=== PATIENT | female | born 1980 | race Caucasian/White ===

== ENCOUNTER → 2024-11-07 | Outpatient (CLI) | payer OTHER, SELFPAY ==
--- OUTSIDE RECORDS SUMMARY | 2024-10-11 11:36 | XMS RPT_ITS ---
Author Name Auto Generated Organization OHIP Care Team Providers Care Fence Builder Name Role Phone Rolanda Ortiz Attending U ale ChaoRolanda bradford Admitting U mehranailable Case, Kilo Chanel Primary Care Unavailable Anisha Krishna Attending Unavailable Anisha Krishan Admitting Unavailable Case, Kilo Chanel Primary Care Unavailable Osorio Louis Primary Care Unavailable Case, Kilo Chanel Attending Unavailable Case, Kilo L Admitting Unavailable Carlita Motta Attending Unavailable Carlita Motta Admitting Unavailable Acosta Varela Primary Care Unavail able OSORIO LOUIS Primary Care Unavailable SUHAIL LEE Attending Unavailable OSORIO LOUIS Primary Care Unavailable NITA YANEZ Referring Unavailable OSORIO LOUIS Primary Care Unavailable NITA YANEZ Attending Unavailable OSORIO LOUIS Primary Care Unavailable HARMONY DUTTA Attending Unavailable OSORIO LOUIS Primary Care Unavailable HARMONY DUTTA Attending Unavailable ACOSTA VARELA Attending Unavailabl e ACOSTA VARELA Admitting Unavailabl e ACOSTA VARELA Attending Unavailabl e ACOSTA VARELA Admitting Unavailabl e ACOSTA VARELA Attending Unavailabl e ACOSTA VARELA Attending Unavailabl e ACOSTA VARELA Referring Unavailabl e KALEB BOOTH Attending Unavailab le ACOSTA VARELA Attending Unavailben e ACOSTA VARELA Admitting Unavailabl e ACOSTA VARELA Referring UnavailSAMANTHA Rey Attending Unavailable ROLANDA ORTIZ Attending Unavailable CASEKILO Attending Unavailable ROGE ZIEGLER Attending Unavailable SAMANTHA CARTY Referring Unavailable SAMANTHA CARTY Attending Unavailable ANISHA KRISHNA Attending Unavailable ANISHA KRISHNA Attending Unavailable CASEKILO Referring Unavailable PROBLEMS DATE TYPE CONDITION / CODE ATTENDING STATUS [facility] 09/22/2024 Active Alteration in me tabolic function / R63.8(ICD-10) NA Active [facility] 09/22/2024 Active Anxiety / F41.9(ICD-10) NA Activ e [facility] 09/22/2024 Active History of PCOS / Z87.42(ICD-10) NA Active [facility] 09/22/2024 Active Brain fog / R41.89(ICD-10) NA Active [facility] 09/22/2024 Active Stress / F43.9(ICD-10) NITA YANEZ ctive [facility] 09/22/2024 Active Nonintractable headache, unspecified chronicity pattern, unspecified headache type / R51.9(ICD-10) NITA YANEZ Active [facility] 08/26/2024 Unknown Headache, unspec ified / R51.9(ICD-10) Carlita Motta [facility] 08/04/2024 Unknown Other specified abnormal findings of blood chemistry / R79.89(ICD-10) Anisha Krishna [facility] 07/11/2024 Unknown Palpitations / R00.2(ICD-10) [facility] Unknown Chronic fatigue, unspecified / R53.82(ICD-10) [facility] Unknown Vitamin D defici ency, unspecified / E55.9(ICD-10) [facility] Unknown Deficiency of ot her specified B group vitamins / E53.8(ICD-10) [facility] Unknown Abnormal level o f blood mineral / R79.0(ICD-10) [facility] Unknown Cramp and spasm / R25.2(ICD-10) [facility] Unknown Nonscarring hair loss, unspecified / L65.9(ICD-10) [facility] Unknown Encounter for co reening for lipoid disorders / Z13.220(ICD-10) [facility] Unknown Pain in right le g / M79.604(ICD-10) [facility] 07/11/2024 Unknown Pain in left leg / M79.605(ICD-10) [facility] Unknown Asymptomatic ilya icose veins of bilateral lower extremities / I83.93(ICD-10) [facility] Unknown 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 / I83.893(ICD-10) Ortiz Rolanda Linnea Active [facility] 06/08/2024 Active 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) HARMONY DUTTA Active [facility] 02/01/2024 Unknown Hirsutism / L68.0(ICD-10) Case, Kilo Chanel [facility] 02/01/2024 Unknown Abnormal uterine and vaginal bleeding, unspecified / N93.9(ICD-10) Case, Kilo Chanel [facility] 2023 Active Vitamin B12 defi ciency / E53.8(ICD-10) SUHAIL LEE Active [facility] PROCEDURES No Procedure Records Found RESULTS AMBULATORY VISIT SUMMARY Observed: 09/27 11:36 AM Status: F Source: [facility] Ambulatory Visit Summary URMILA RODRIGUEZ Yanique :1980 Visit Date:09/27/2024 Ambulatory Visit Instructions Your Diagnosis Anxiety Migraine Muscle spasm Neck pain Rash Your Care Team Attending Physician - WHITNEY VENTURA Primary Care Physician - WHITNEY VENTURA This Is Your Medications List acetaminophen-oxycodone (Percocet 5 mg-325 mg oral tablet) alprazolam (Xanax 0.25 mg Tab) clonazepam (clonazepam 0.5 mg oral tablet, disintegrating) diazepam (Valium 10 mg Tab) multivitamin (Multi Vitamin+) predniSONE (predniSONE 10 mg Tab) tizanidine (tizanidine 4 mg oral capsule) triamcinolone topical (triamcinolone Top 0.5% Crm) Procedures Performed Breast implant (02/09/2019), Breast implant (02/09/2011), 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 Discharge Vitals Heart Rate (Peripheral) 88 Blood Pressure 110/72 Height 163 cm Height 64 in Weight 55.2 kg Weight 121.695 lb BMI 20.78 Medications What How Much When Why Instructions New acetaminophen-oxycodone (Percocet 5 mg-325 mg oral tablet) 1 Tablets By Mouth Every 6 hours Migraine Neck pain Pickup at [facility] New clonazepam (clonazepam 0.5 mg oral tablet, disintegrating) 1 Tablets By Mouth 2 times a day Anxiety Refills: 1 Pickup at [facility] New tizanidine (tizanidine 4 mg oral capsule) 1 Capsules By Mouth 3 times a day Muscle spasm Refills: 2 Pickup at [facility] New triamcinolone topical (triamcinolone Top 0.5% Crm) 1 Application Topical 2 times a day Rash Refills: 1 Pickup at [facility] Unchanged alprazolam (Xanax 0.25 mg Tab) 1 Tablets By Mouth Every 8 hours Anxiety Unchanged diazepam (Valium 10 mg Tab) 1 Tablets By Mouth Once as needed for for anxiety Claustrophobia Unchanged multivitamin (Multi Vitamin+) Unchanged predniSONE (predniSONE 10 mg Tab) 1 Dose Separtor By Mouth As Directed Migraine Take 3 tabs by mouth daily x3 days, then 2 tabs daily x3 days, then 1 tab daily x3 days. Pharmacy Information [facility]: [address], [place] [id number] [phone] Allergies No Known Medication Allergies Problems Ongoing - Any problem that you are currently receiving treatment for. Headache Patient Survey You may receive a survey via text or e-mail asking about your office visit. Please share your experience with us by completing your survey. We appreciate your feedback and thank you for choosing us for your care. Patient Portal You may access all of your results and other medical record information on our secure patient portal. If you are not signed up for this yet, please contact Health Information Management at [phone] to get signed up today. Language Information Language assistance services are available as needed. FAMILY MEDICINE OFFICE/CLINI C NOTE Observed: 09/27/2024 11:36 AM Status: F Source: [facility] Family Medicine Office/Clini c Note Chief Complaint Headaches HPI Staff Pt is here today to discuss migraines. -Pt states after her MRI w/ contrast she started to get a really bad headache and backache. Struggling with migraines recently. Feels like a burning sensation on the back of her head. Pt also has a rash on her chest that is now spreading up to her neck. It comes and goes. On neck or back. Hasn't changed laundry soap, or lotion. History of Present Illness Urmila is a 44 year old female who presents for a migraine headache. She had a brain MRI recently and after this test she has had a pretty consistent migraine. She has tried OTC,ice, heat, etc and nothing to helping with her migraine. She completed a steroid without resolve of migraine. 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 She is not sure if she will be able to go back to school. She has developed a rash on her chest. She does not believe she was exposed to anything recently. I believe the rash is from severe anxiety and anxiousness related to her health and going back to school. Neck spasm: she reports her neck is also hurting from the migraine. Review of Systems PHQ Score Initial Depression Screen Score: 6 SCORE Detailed Depression Screen Score: 18 Total Depression Screen Score: 24 Physical Exam Vitals & Measurements HR: 88(Peripheral) BP: 110/72 SpO2: 100% HT: 163 cm HT: 64 in WT: 55.2 kg WT: 121.695 lb BMI: 20.78 General: alert, no acute distress ENMT: TM's clear, oral mucosa moist, no pharyngeal erythema or exudate Cardiovascular: regular rate and rhythm, normal peripheral perfusion Respiratory: Lungs CTA, respirations non labored Extremities: no deformity, no trauma Neurological: oriented x 4, LOC appropriate for age, CN II-XII intact, motor strength equal & normal bilaterally, sensation equal & normal bilaterally, speech normal Assessment/Plan 1. Headache (R51.9: Headache, unspecified) percocet prn tizanidine 2. Anxiety, (F41.9: Anxiety disorder, unspecified)Anxiety start clonazepam as needed Ordered: clonazepam, 0.5 mg = 1 tab(s), Oral, BID, # 30 tab(s), Refills(s) 1, Pharmacy: [facility], 163, cm, 09/27/24 12:04:00 EDT, Height/Length Dosing, 55.2, kg, 09/27/24 12:04:00 EDT, Weight Dosing 3. Pain (R52: Pain, unspecified) percocet prn 4. Rash, (R21: Rash and other nonspecific skin eruption)Rash triamcinolone prn Ordered: triamcinolone topical, 1 ron, Topical, BID, 15 gram, Refill(s) 1, [facility], 163, cm, 09/27/24 12:04:00 EDT, Height/Length Dosing, 55.2, kg, 09/27/24 12:04:00 EDT, Weight Dosing Migraine (G43.909: Migraine, unspecified, not intractable, without status migrainosus) Ordered: acetaminophen-oxycodone, 1 tab(s), Oral, q6hr, 28 tab(s), Refill(s) 0, [facility], 163, cm, 09/27/24 12:04:00 EDT, Height/Length Dosing, 55.2, kg, 09/27/24 12:04:00 EDT, Weight Dosing Muscle spasm (M62.838: Other muscle spasm) Ordered: tizanidine, 4 mg = 1 cap(s), Oral, TID, # 90 cap(s), Refills(s) 2, Pharmacy: [facility], 163, cm, 09/27/24 12:04:00 EDT, Height/Length Dosing, 55.2, kg, 09/27/24 12:04:00 EDT, Weight Dosing Neck pain (M54.2: Cervicalgia) Ordered: acetaminophen-oxycodone, 1 tab(s), Oral, q6hr, 28 tab(s), Refill(s) 0, [facility], 163, cm, 09/27/24 12:04:00 EDT, Height/Length Dosing, 55.2, kg, 09/27/24 12:04:00 EDT, Weight Dosing Follow-up No qualifying data available Problem List/Past Medical History Ongoing Anxiety Headache Pain Rash Historical No qualifying data Procedure/Surgical History Breast implant (02/09/2019), Breast implant (02/09/2011), 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 Medications clonazepam 0.5 mg oral tablet, disintegrating, 0.5 mg= 1 tab(s), Oral, BID, 1 refills Multi Vitamin+ Percocet 5 mg-325 mg oral tablet, 1 tab(s), Oral, q6hr predniSONE 10 mg Tab, 1 -, Oral, As Directed tizanidine 4 mg oral capsule, 4 mg= 1 cap(s), Oral, TID, 2 refills triamcinolone Top 0.5% Crm, 1 ron, Topical, BID, 1 refills Valium 10 mg Tab, 10 mg= 1 tab(s), Oral, Once, PRN Xanax 0.25 mg Tab, 0.25 mg= 1 tab(s), Oral, q8hr, 1 refills Allergies No Known Medication Allergies Social History Alcohol Past. Beer, Wine, Liquor. 1-2 times per year., 08/28/2024 Substance Abuse Never., 08/05/2024 Tobacco Never (less than 100 in lifetime) Tobacco Use:. Never Smokeless Tobacco Use:. Household tobacco concerns: No., 09/27/2024 Family History Family history is negative Result Comment: Electronical ly Signed By: WHITNEY VENTURA\.br\Date and Time Signed: 09/27/24 13:14 EDT VITAMIN B3/NIACIN Collected: 09/22/2024 11:41 AM Sta tus: F Source: [facility] Order Comment: Specimen Type : BLOOD SPECIMEN Ordering Facility: [facility] Address: [address] [place] [address] TYPE CODE TESTS RESULT OUT OF RANGE REFERENCE UNITS LAB NICOTACID NICOTINIC ACID None Det ng/mL Result Comment: Serum or Raf sma Reporting Limit: 10 ng/mL Synonym(s): Niacor(R); Niaspan(R); Slo-Niacin(R); Vitamin B3 Nicotinic acid occurs naturally in plants and animals and is also added to many foods as a vitamin supplement. Due to the large variability in the metabolism of nicotinic acid, the dosing preparation used (immediate-release vs. extended-release), and the mg doses used, the serum concentrations may range from less than 10 ng/mL to about 86291 ng/mL. After oral administration of an immediate-release tablet, peak plasma concentrations are achieved in 30 to 60 min; after oral administration of an extended-release capsule, peak plasma concentrations occur in 4 to 5 hours. The plasma half-life of nicotinic acid is about 1 hour. In one study, fasting plasma concentrations were reported to be approximately 10 ng/mL. In another study it was reported that the administration of a single 1000 mg extended-release tablet resulted in mean nicotinic acid concentrations of less than 50 ng/mL. The administration of multiple oral doses of nicotinic acid (for a total of 2000 mg) resulted in the following mean peak nicotinic acid plasma concentrations: 25 mg every 10 min. for 80 doses (over 13 hours): 1100 ng/mL 50 mg every 10 min. for 40 doses (over 6.5 hours): 5400 ng/mL 100 mg every 10 min. for 20 doses (over 3 hours): 26376 ng/mL This test should be considered as a therapeutic drug monitoring/toxicological test associated with niacin (Vitamin B3) supplementation. Care should be taken in the use of this test for basal Vitamin B3 determination. The supplied reference comment does not reflect normal, endogenous Vitamin B3 concentrations. Analysis by [facility] Liquid Chromatography/ Tandem Mass Spectrometry (LC-MS/MS) LAB NICOT NICOTINAMIDE 24 ng/mL Result Comment: Serum or Raf sma Reporting Limit: 10 ng/mL Synonym(s): Niacinamide; Vitamin B3; Niacin(R) Nicotinamide is a metabolite of nicotinic acid, is the common form of niacin included in vitamin preparations and is also added to many foods as a vitamin supplement. Due to the large variability in the metabolism of nicotinic acid, plasma concentrations of this metabolite also are variable. In one study, fasting plasma concentrations were reported to be approximately 40 ng/mL. In another study it was reported that the administration of a single 1000 mg extended-release tablet of nicotinic acid resulted in a mean peak Nicotinamide concentration of 400 ng/mL between 5 and 10 hours post dose, decreasing to about 100 ng/mL by 16 hours post dose. The administration of multiple oral doses of nicotinic acid (for a total of 2000 mg) resulted in the following mean peak Nicotinamide plasma concentrations: 25 mg every 10 min. for 80 doses (over 13 hours): 1300 ng/mL 50 mg every 10 min. for 40 doses (over 6.5 hours): 2300 ng/mL 100 mg every 10 min. for 20 doses (over 3 hours): 2000 ng/mL This test should be considered as a therapeutic drug monitoring/toxicological test associated with niacin (Vitamin B3) supplementation. Care should be taken in the use of this test for basal Vitamin B3 determination. The supplied reference comment does not reflect normal, endogenous Vitamin B3 concentrations. Analysis by [facility] Performance Liquid Chromatography/ Tandem Mass Spectrometry (LC-MS/MS) LAB NICOTINURIC NICOTINURIC ACID None Det ng /mL Result Comment: Serum or Raf sma Reporting Limit: 10 ng/mL Synonym(s): Niacin Metabolite Nicotinuric acid is a metabolite of nicotinic acid and nicotinamide. Due to the large variability in the metabolism of nicotinic acid and nicotinamide, plasma concentrations of this metabolite also are variable. In one study it was reported that the administration of a single 1000 mg extended-release tablet of nicotinic acid resulted in a mean peak nicotinuric acid concentration of over 1000 ng/mL within 2 hours post dose, decreasing to less than 200 ng/mL by 6 hours and less than 50 ng/mL by 12 hours post dose. The administration of multiple oral doses of nicotinic acid (for a total of 2000 mg) resulted in the following mean peak nicotinuric acid plasma concentrations: 25 mg every 10 min. for 80 doses (over 13 hours): 950 ng/mL 50 mg every 10 min. for 40 doses (over 6.5 hours): 2300 ng/mL 100 mg every 10 min. for 20 doses (over 3 hours): 5100 ng/mL This test should be considered as a therapeutic drug monitoring/toxicological test associated with niacin (Vitamin B3) supplementation. Care should be taken in the use of this test for basal Vitamin B3 determination. The supplied reference comment does not reflect normal, endogenous Vitamin B3 concentrations. Analysis by High Performance Liquid Chromatography/ Tandem Mass Spectrometry (LC-MS/MS) This test was developed and its performance characteristics determined by [facility]. It has not been cleared or approved by the US Food and Drug Administration. Digital data review may have taken place remotely by qualified [facility] staff utilizing a secure VPN connection for some or all of the reported results. This is in accordance with and follows CLIA regulations. Testing performed at [facility] [employer] [address] [place] [id number] Garo Landaverde, PhD, F-FREYA, [facility]-, [employer] [facility] [id number] Performed By: #### [id number] ### # [facility] CLIA [id number] [address] [place] [address] [facility] [facility] Collected: 5 11:41 AM Status: F Source: [facility] Order Comment: Specimen Type : VENOUS BLOOD SPECIMEN Ordering Facility: [facility] Address: [address], [place] [address] TYPE CODE TESTS RESULT OUT OF RANGE REFERENCE UNITS LAB 05848-6(LOINC) Lead BldV-mCnc <1.0 <3.5 ug/dL Result Comment: The Centers for Disease Control and Prevention (CDC) recommends a blood lead reference value of less than 3.5 ???g/dL (Update of the Blood Lead Reference Value - [place], 2020). The CDC's updated Recommended Actions Based on Blood Lead Level can be accessed at www.cdc.gov. Consult your State Department of Health and/or applicable regulatory agencies for specific guidance on testing follow up and patient management. This test was developed, and its performance characteristics determined by the [facility] Department of Pathology and Laboratory Medicine. It has not been cleared or approved by the FDA. The [facility] Department of Pathology and Laboratory Medicine is regulated under CLIA as qualified to perform high- complexity testing. This test is used for clinical purposes. It should not be regarded as investigational or for research. Performed By: #### [id number] ## ## [facility] CLIA [id number] [address] [place] [address] OF [facility] ARSENIC BLD Collected: 11:41 AM Status: F Source: [facility] Order Comment: Specimen Type : BLOOD SPECIMEN Ordering Facility: [facility] Address: [address] [place] [address] TYPE CODE TESTS RESULT OUT OF RANGE REFERENCE UNITS LAB ASB ARSENIC, BLOOD <10.0 <=12.0 ug/L Result Comment: INTERPRETIVE INFORMATION: Arsenic, Whole Blood Potentially toxic ranges for blood arsenic: Greater than or equal to 600 ug/L. Blood arsenic is for the detection of recent exposure poisoning only. Blood arsenic levels in healthy subjects vary considerably with exposure to arsenic in the diet and the environment. A 24-hour urine arsenic is useful for the detection of chronic exposure. Elevated results may be due to skin- or collection-related contamination, including the use of tubes that are not certified to be trace element-free. If an elevated result is suspected to be due to contamination, confirmation with a second specimen collected in a certified trace element-free tube is recommended. Methodology: Inductively Coupled Plasma-Mass Spectrometry (ICP-MS). This test was developed and its performance characteristics determined by [facility]. It has not been cleared or approved by the U.S. Food and Drug Administration. This test was performed in a CLIA-certified laboratory and is intended for clinical purposes. Performed By: [facility] [address] [place] [id number] Gamemaster: Reyes Velez MD, PhD CLIA Number: [id number] Performed By: #### ASB #### [facility] CLIA [id number] [address] [place] [address] CADMIUM BLOOD Collected: 11:41 AM Status: F Source: [facility] Order Comment: Specimen Type : BLOOD SPECIMEN Ordering Facility: [facility] Address: [address] [place] [address] TYPE CODE TESTS RESULT OUT OF RANGE REFERENCE UNITS LAB CADMB CADMIUM BLOOD <1.0 <=5.0 ug/L Result Comment: INTERPRETATI ON INFORMATION: Cadmium, Whole Blood Blood cadmium levels can be used to monitor acute toxicity and, in combination with cadmium urine and B-2 microglobulin, is the preferred method for monitoring occupational exposure. Symptoms associated with cadmium toxicity vary based upon route of exposure and may include tubular proteinuria, fever, headache, dyspnea, chest pain, conjunctivitis, rhinitis, sore throat, and cough. Ingestion of cadmium in high concentration may cause vomiting, diarrhea, salivation, cramps, and abdominal pain. Elevated results may be due to skin- or collection-related contamination, including the use of tubes that are not certified to be trace element-free. If an elevated result is suspected to be due to contamination, confirmation with a second specimen collected in a certified trace element-free tube is recommended. Methodology: Inductively Coupled Plasma-Mass Spectrometry (ICP-MS). This test was developed and its performance characteristics determined by [facility]. It has not been cleared or approved by the US Food and Drug Administration. This test was performed in a CLIA certified laboratory and is intended for clinical purposes. Performed By: [facility] [address] [place] [address] Gamemaster: Reyes Velez MD, PhD CLIA Number: [id number] Performed By: #### CADM #### [facility] CLIA [id number] [address] [place] [address] COPPER BLOOD Collected: 11:41 AM Status: F Source: [facility] Comment: Specimen Type : BLOOD SPECIMEN Ordering Facility: [facility] Address: [address] [place] [address] TYPE CODE TESTS RESULT OUT OF RANGE REFERENCE UNITS LAB 5631-7(LOINC) Copper SerPl-mCnc 141 80-155 ug/dL Result Comment: This test wa s developed, and its performance characteristics determined by the [facility] Department of Pathology and Laboratory Medicine. It has not been cleared or approved by the FDA. The [facility] Department of Pathology and Laboratory Medicine is regulated under CLIA as qualified to perform high-complexity testing. This test is used for clinical purposes. It should not be regarded as investigational or for research. Performed By: #### COPPER ## ## [facility] CLIA [id number] [address] [place] [address] [place] VITAMIN B5(PANTOTHENIC AID) BIOASSAY Collected: 09/22/2024 11:41 AM Status: F Source: [facility] Order Comment: Specimen Type : BLOOD SPECIMEN Ordering Facility: [facility] Address: [address] [place] [address] TYPE CODE TESTS RESULT OUT OF RANGE REFERENCE UNITS LAB VITB5R VITAMIN B5 103.42 37.00-147.00 ug/L Result Comment: Adult Reference Range >10 Years 37 - 147 ug/L Pediatric Reference Range < or = 1 Year : 3.45 to 825 ug/L >1 Year to 10 Years: 3.45 to 229.2 ug/L The performance characteristics of the listed assay was validated by [facility] The FDA has not approved or cleared this test. The results of this assay can be used for clinical diagnosis without FDA approval. [facility] is a CLIA certified, CAP accredited laboratory for performing high complexity assays such as this one. Testing Performed at: [facility] [address] [place] [address], [place] [address] Performed By: #### VITB5 ### # [facility] CLIA [id number] [address] [place] [address] VITAMIN B1 (THIAMINE), WHOLE BLOOD Nicholas ected: 09/22/2024 11:41 AM Status: F Source: [facility] Order Comment: Specimen Type : BLOOD SPECIMEN Ordering Facility: [facility] Address: [address] [place] [address] TYPE CODE TESTS RESULT OUT OF RANGE REFERENCE UNITS LAB 98308-1(LOINC) Vit B1 Bld-sCnc 156.1 84.3-213.3 nmol/L Result Comment: This assay m easures the concentration of thiamine diphosphate (TDP), the primary active form of vitamin B1. Approximately 90 percent of vitamin B1 present in whole blood is TDP. Thiamine and thiamine monophosphate, which comprise the remaining 10 percent, are not measured. This test was developed, and its performance characteristics determined by the [facility] Department of Pathology and Laboratory Medicine. It has not been cleared or approved by the FDA. The [facility] Department of Pathology and Laboratory Medicine is regulated under CLIA as qualified to perform high- complexity testing. This test is used for clinical purposes. It should not be regarded as investigational or for research. Performed By: #### B1WB #### [facility] CLIA [id number] [address] [place] [address] [place] MERCURY BLOOD Collected: 5 11:41 AM Status: F Source: [facility] Order Comment: Specimen Type : BLOOD SPECIMEN Ordering Facility: [facility] Address: [address] [place] [address] TYPE CODE TESTS RESULT OUT OF RANGE REFERENCE UNITS LAB MERC2 MERCURY <2.5 <=10.0 ug/L Result Comment: INTERPRETIVE INFORMATION: Mercury, Whole Blood Blood mercury levels predominantly reflect recent exposure and are most useful in the diagnosis of acute poisoning as blood mercury concentrations rise sharply and fall quickly over several days after ingestion. Blood concentrations in unexposed individuals rarely exceed 20 ug/L. The provided reference interval relates to inorganic mercury concentrations. Dietary and nonoccupational exposure to organic mercury forms may contribute to an elevated total mercury result. Clinical presentation after toxic exposure to organic mercury may include dysarthria, ataxia, and constricted vision proctor with mercury blood concentrations from 20 to 50 ug/L. Elevated results may be due to skin- or collection-related contamination, including the use of tubes that are not certified to be trace element-free. If an elevated result is suspected to be due to contamination, confirmation with a second specimen collected in a certified trace element-free tube is recommended. Methodology: Inductively Coupled Plasma-Mass Spectrometry (ICP-MS). This test was developed and its performance characteristics determined by [facility]. It has not been cleared or approved by the US Food and Drug Administration. This test was performed in a CLIA certified laboratory and is intended for clinical purposes. Performed By: [facility] [address] [place], [place] [id number] Gamemaster: Reyes Velez MD, PhD CLIA Number: [id number] Performed By: #### MERC2 ### # [facility] CLIA [id number] [address] [place], [place] [id number] VITAMIN B6/PYRIDOXIN Collected: 025 11:41 AM Status: F Source: [facility] Order Comment: Specimen Type : BLOOD SPECIMEN Ordering Facility: [facility] Address: [address] [place] [address] TYPE CODE TESTS RESULT OUT OF RANGE REFERENCE UNITS LAB VITB6 VITAMIN B6 69.3 20.0-125.0 nmol/L Result Comment: INTERPRETIVE INFORMATION: Vitamin B6 (Pyridoxal 5-Phosphate) Pyridoxal 5'-phosphate measured in a specimen collected following an 8-hour or overnight fast accurately indicates vitamin B6 nutritional status. Non-fasting specimen concentration reflects recent vitamin intake. This test was developed and its performance characteristics determined by [facility]. It has not been cleared or approved by the US Food and Drug Administration. This test was performed in a CLIA certified laboratory and is intended for clinical purposes. Performed By: [facility] [address] [place] [address] Gamemaster: Reyes Velez MD, PhD CLIA Number: [id number] Performed By: #### VITB6 ### # [id number] [address] [place] [id number] OMEGACHECK Collected: 5 11:41 AM Status: F Source: [facility] Order Comment: Specimen Type : BLOOD SPECIMEN Ordering Facility: [facility] Address: [address] [place] [address] TYPE CODE TESTS RESULT OUT OF RANGE REFERENCE UNITS LAB OMEGAL OMEGACHECK 2.7 Low >5.4 % by wt Result Comment: Increasing b lood levels of long-chain n-3 fatty acids are associated with a lower risk of sudden cardiac (1). Based on the top (75th percentile) and bottom (25th percentile) quartiles of the CHL reference population, the following relative risk categories were established for OmegaCheck: A cut-off of >=5.5% by wt defines a population at optimal relative risk, 3.8-5.4% by wt defines a population at moderate relative risk, and <=3.7% by wt defines a population at high relative risk of sudden cardiac . The totality of the scientific evidence demonstrates that when consumption of fish oils is limited to 3 g/day or less of EPA and DHA, there is no significant risk for increased bleeding time beyond the normal range. A daily dosage of 1 gram of EPA and DHA lowers the circulating triglycerides by about 7-10% within 2 to 3 weeks. (Reference: 1-Uday brenner al. [facility]. 2002; 346: 8774-2611).This test was developed and its analytical performance characteristics have been determined by [facility]. It has not been cleared or approved by the U.S. Food and Drug Administration. This assay has been validated pursuant to the CLIA regulations and is used for clinical purposes. LAB ARACHE ARACHIDONIC ACID/EPA RATIO 49.5 High 3.7-40.7 Result Comment: Received Tao e: [id number] LAB OMEG63 OMEGA-6/OMEGA-3 RATIO 14.9 High 3.7-14.4 LAB OMEGA3 OMEGA-3 TOTAL 2.7 % by wt LAB OMEEPA EPA 0.2 0.2-2.3 % by wt LAB OMEDPA DPA 0.6 Low 0.8-1.8 % by wt LAB OMEDHA DHA 1.8 1.4-5.1 % by wt LAB OMEGA6 OMEGA-6 TOTAL 39.7 % by wt Result Comment: [facility] measures a number of omega-6 fatty acids with AA and LA being the two most abundant forms reported. LAB ARACHA ARACHIDONIC ACID 11.7 8.6-15.6 % by wt LAB ARACHL LINOLEIC ACID 24.9 18.6-29.5 % by wt Performed By: #### OMEGAC ## ## [facility] CLIA [id number] [address] [place] [address] VITAMIN B2/RIBOFLAV Collected: 09/23/19 25 11:41 AM Status: F Source: [facility] Order Comment: Specimen Type : BLOOD SPECIMEN Ordering Facility: [facility] Address: [address] [place] [address] TYPE CODE TESTS RESULT OUT OF RANGE REFERENCE UNITS LAB VITB2 VITAMIN B2 12 5-50 nmol/L Result Comment: INTERPRETIVE INFORMATION: Vitamin B2, Plasma This test was developed and its performance characteristics determined by [facility]. It has not been cleared or approved by the US Food and Drug Administration. This test was performed in a CLIA certified laboratory and is intended for clinical purposes. Performed By: [facility] [address] [place] [address] Gamemaster: Reyes Velez MD, PhD CLIA Number: [id number] Performed By: #### VITB2 ### # [facility] CLIA [id number] [address] [place] [address] VIT A SERPL-MCNC Collected: 11:41 AM Status: F Source: [facility] Order Comment: Specimen Type : BLOOD SPECIMEN Ordering Facility: [facility] Address: [address] [place] [address] TYPE CODE TESTS RESULT OUT OF RANGE REFERENCE UNITS LAB 2923-1(LOINC) Vit A SerPl-mCnc 0.55 0.30-1.20 mg/L Result Comment: This test wa s developed, and its performance characteristics determined by the [facility] Department of Pathology and Laboratory Medicine. It has not been cleared or approved by the FDA. The [facility] Department of Pathology and Laboratory Medicine is regulated under CLIA as qualified to perform high-complexity testing. This test is used for clinical purposes. It should not be regarded as investigational or for research. Performed By: #### 2923-1 ## ## [facility] CLIA [id number] [address] [place] [address] [place] PROGRESS Observed: 09/22/2024 10:21 AM Status: COMPLETED Source: [facility] HNO ID: [id number] Author: NITA YANEZ APRN.PANTS PRESSER AUTOMATIC Service: ? Author Type: Nurse Practitioner Type: Progress Notes Filed: 09/22/2024 11:32 Note Text: FUNCTIONAL MEDICINE INITIAL ASSESSMENT Patient: Urmila Rodriguez Recording using [employer] software for draft documentation of the visit was discussed with the patient/authorized client relations representative; all questions welcomed and answered. Patient/authorized client relations representative agreed to proceed ALLERGIES No Known Allergies Current Outpatient Medications Medication Sig Dispense Refill Drospirenone-Ethinyl Estradiol (KAMAR 28) 3-0.02 mg per tablet Take 1 tablet by mouth once daily. minoxidil (LONITEN) 2.5 mg tablet Take 1/2 a pill once daily for hair loss 45 tablet 1 cholecalciferol, vitamin D3, (VITAMIN D3 ORAL) Take by mouth once daily. spironolactone (ALDACTONE) 50 mg tablet Start once daily and increase to twice daily after 2 weeks if tolerating well. 180 tablet 1 acetaminophen (TYLENOL 8 HOUR ORAL) Take by mouth. No current facility-administered medications for this visit. 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 No past surgical history on file. No family history on file. SOCIAL HISTORY[1] Patient Goals: New to provider visit today. Lives in [place], [place], accompanied by SO HPI: This is a 44yo female presenting for a functional medicine consult with complaints of: Headaches: - Severe headaches began 4 days post-MRI with contrast, 5 weeks ago. - Describes headaches as different from previous ones, with severe pressure and a burning sensation under the scalp. - Headaches are constant, with only 4 days without pain since onset. - Pain radiates down the neck and behind the ears. - Associated symptoms: photophobia, dizziness, and nausea - Tylenol and Advil provide minimal relief. - Headaches are severe enough to disrupt sleep. - Followed by PCP; self reports brain MRI unremarkable - No neurologist Rashes: - Onset of rashes and hives approximately 3.5 weeks post-MRI. - Rashes appear on different parts of the body, including arms and chest. - Associated with constant itching on the back. - Prednisone prescribed by PCP provided no relief. Previously seen by Dr. 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 - Symptoms include severe fatigue, brain fog, and inability to function normally. - Symptoms have worsened since the MRI with contrast. PCOS: - Self reports diagnosed by technical staff assistant due to high testosterone levels and irregular periods every 2-3 weeks. - History of ovarian cysts, including emergency surgery for a cyst pressing against an artery. - Currently on control since March to manage symptoms. - Mentions hx of severe hair loss, losing 3/4 of hair. MTHFR Gene Mutation: - Mentions diagnosed with MTHFR gene mutation, leading to difficulty detoxifying. - Taking a multivitamin for MTHFR for almost a year. - Self reports low B12 and vitamin D levels prior to starting the multivitamin. 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 - Does not take medication due to sensitivity to medications. - Reports interrupted sleep and poor sleep quality, getting 7-8 hours of sleep per night. Diet and Lifestyle: - Skips lunch and sometimes breakfast - Dinner protein and vegetables - Drinks 2-3 water bottles (32 oz each) per day. - Consumes 1 cup of coffee with creamer daily. - Bowel movements once a day, but reports feeling incomplete evacuation for about a year; no hx of colonoscopy - Drinks alcohol occasionally, does not smoke or use substances. - Has good support from family and friends. - Stress level reported as 9/10 due to health concerns and caring for two young children. - Has seen a therapist in the past;not actively - No regular exercise in the past two weeks. Last PCP visit: within the past year Supplements: reviewed MV with swetha Bs Meds/Labs: in EMR Review of Systems: See HPI Objective: BP 119/78 (BP Site: Right Arm, BP Position: Sitting, BP Cuff Size: Regular Adult) Pulse 80 Ht 160 cm (5' 3) Wt 55.4 kg (122 lb 2.2 oz) BMI 21.64 kg/m? Physical Exam: General appearance: Well-appearing, NAD. Pleasant and conversational HEENT: NC/AT, PERRL, sclera white, nose patent bilaterally, no oral swelling/mucus membranes pink AND moist, tongue without fissures or white coating Neck: Non-tender. No obvious swelling or adenopathy Lungs: CTAB, no use of accessory muscles Heart: RRR, no obvious murmur Abdomen: Soft, non-tender. +BS Extremities: Non-tender and warm. No obvious joint swelling, redness, or pitting edema Neuro: No obvious motor, sensory, or focal deficits. Pt is ambulatory. Finger to nose WNL Psych: Affect normal. Behavior and judgement normal. Skin: Warm. No acute rash Initial Functional Medicine Assessment Nutritional Assessment Nutritional evaluation was performed. See above. Underlying Causes: Unmet nutritional needs from diet, concern for impaired gut barrier/dysbiosis, inadequate sleep, life stressors Today's Focus: Gut health Stress regulation Improve sleep quality Detox Mitochondrial support Hormone balance Digestive Function Daily formed Bms - doesn't feel like fully emptying DIAGNOSIS/ASSESSMENT: R63.8 Alteration in metabolic function (primary encounter diagnosis) F41.9 Anxiety Z87.42 History of PCOS R41.89 Brain fog F43.9 Stress R51.9 Nonintractable headache, unspecified chronicity pattern, unspecified headache type Plan and Lifestyle Prescription PLAN with Patient Instructions: Based on your evaluation today, these are my recommendations: Follow up with F neurology for persistent, daily headaches - referral provided. Of course for any new concerns or if worse in any way, the ER is a 24/7 option Modified Core Diet: consider GF. Discuss well-sourced protein options and balanced meals/snack ideas. Expand vegetable diversity for microbiome support slowly and gently. Follow up with the registered nurse fetal (RD) for a customized food plan. Consider a 3-day food log/dietary recall assessment with your RD. Goals: Eliminate highly processed foods. Low ram on alcohol, sugar, and starches. Increase plant fiber intake with color variety (eat the rainbow) for gut health as tolerated. [facility] labs ordered Stress regulation: Try the 4-7-8 breath twice a day or at bedtime (Youtkatie De La Fuente 4-7-8). Take 1-2 deep breaths before eating meals Optionally, follow up with the CFM therapist to help process the stress you are experiencing Weekly movement routine: consider light walking 3x a week for 10 min (as tolerated) Restorative sleep: Pre-bedtime routine. No blue screens 1-2 hours before bed. Do something relaxing every night: read a book, meditate, try a deep breathing exercise, etc. Sleep goal 7-9 hours nightly Consistency: We have to build new neuro pathways for a sustainable health routine, including diet. Follow up with the health trolley coach driver every 2 weeks to keep things in check Minimize supplements: recommend a well-sourced Vitamin D. I like these brands: Plant-based organic vitamin D: Truvani brand 2000 IUs daily with food Notes: Natural ways to detox for gut-immune health: 1. Drink filtered water daily: 8 glasses (64 ounces). Urine should be pale, straw yellow in appearance. Never clear without color. 2. Eat organic as much as possible when available and within budget. Please visit the environmental working group to learn about fruits and veggies with the highest amount of toxins on them called the dirty dozen: EWG.org. Try to eat clean sources of meat as well. If you can not afford this, more vegetables than fruits are important to consume since they help up regulate your detoxification ability. 3. Eat the rainbow and use fresh and dried organic (preferred) spices such as: sara, parsley, oregano, cilantro. Increase plant fiber from dark leafy green and cruciferous vegetables: goal 1-2 cups per day. 4. Dry brushing: use loofah brush over body, always moving towards the heart daily before showering. If you feel worse with the above two, this is a sign of a lot of toxin build up, decrease what you are doing to the level you can tolerate. 5. Sauna 3x a week (as tolerated). Sweat for 8-10 min, shower directly after 6. Air quality in your house and at work are important. Consider investing in a good quality air purifier to clean the air. You can visit www.Beyond Lucid Technologies.BigRoad to learn more. Other ways to improve air quality are to keep shades/blinds open throughout the day, changing your HVAC filter more often and using a higher grade (10 is preferred). 7. Reduce environmental exposures: Check EWG.org scores on the Skin Deep database [2 or less is best] for low tox skincare, cosmetics, and personal care products - Gluten is commonly found in processed foods like pizza, pasta, pastries, pretzels, bread, beer, crackers, cookies, cereal, and soy sauce. Also grains that contain gluten include: wheat, barley, and rye. Naturally gluten-free (GF) whole foods/grains: quinoa, wild rice, GF oats, millet, buckwheat, amaranth, sorghum, teff Organic tamari sauce is a GF soy sauce alternative. Whole Food Recipe Blogs Tiki Benedict: https://SAFCell.BigRoad/ Plant Based RD (Vegan and plant diverse): https://plantbasedrTeamBuylog.com/recipes/ Rachaels Good Eats: https://Aliva Biopharmaceuticals.BigRoad/ Cookie and Macie: https://Fetch Technologies.BigRoad/ Love and Beto: https://www.ZUCHEM.BigRoad/recipes/ 101 Cookbooks: https://www.Signal Innovations GroupcoSureGenebookPresence Learning.BigRoad/ Naturally Lori:https://naturallyella.com/ The YouGift Food Dietitians: https://Breakout Commerce.BigRoad/ Follow up: Please schedule a follow up visit with the following Caregivers: Provider: 12weeks, Liquor Grinder Mill Operator: 4 weeks, and Health Front End Developer: 2 weeks Bundle Tier (RD): During the next 4-8 weeks you'll be working on your diet plan with our RD, allowing for gentle detoxification and decreasing inflammation - while we are gathering your lab results and combining those with your complete history to formulate a very personalized treatment plan. [phone]. Health Coaching: Recommend follow up every 2 weeks to develop a consistent routine. Please consider scheduling with our [place] health coaches for a phone or virtual visit for accountability, goal setting and help with behavior change director the next 6-8 weeks to be successful with your goals. [phone]. CFM Therapist: This is optional. Weekly or bi-monthly appointments can be helpful. [phone]. Due to the complexity of the testing performed, we are not able to review labs via Datahughart or over the phone, but please know, if any of your labs are critical we will contact you. Otherwise, we will review all your labs at your next visit. Time spent with patient: I spent a total of 60 minutes on the date of the service which included preparing to see the patient, [id number] patient care, completing clinical documentation, obtaining and/or reviewing separately obtained history, performing a medically appropriate examination, counseling and educating the patient/family/caregiver, and ordering medications, tests, or procedures. Nita Yanez APRN.KALEB 09/22/2024 11:31 AM [1] CNOV Observed: 09/22/2024 10:15 AM Status: COMPLETED Source: [facility] Office Visit ([facility]) NOAHURMILA Palacios ([id number]) 1980 F Date Time Provider Department 09/22/24 10:15 AM NITA YANEZ [facility] During your visit today, we recorded the following information about you: Pulse Blood pressure Weight Height 80/minute 119/78 55.4 kg 1.6 m Nita Yanez APRN.PANTS PRESSER AUTOMATIC 09/22/2024 11:32 AM Signed FUNCTIONAL MEDICINE INITIAL ASSESSMENT Patient: Urmila Rodriguez Recording using [employer] software for draft documentation of the visit was discussed with the patient/authorized client relations representative; all questions welcomed and answered. Patient/authorized client relations representative agreed to proceed ALLERGIES No Known Allergies Current Outpatient Medications Medication Sig Dispense Refill Drospirenone-Ethinyl Estradiol (KAMAR 28) 3-0.02 mg per tablet Take 1 tablet by mouth once daily. minoxidil (LONITEN) 2.5 mg tablet Take 1/2 a pill once daily for hair loss 45 tablet 1 cholecalciferol, vitamin D3, (VITAMIN D3 ORAL) Take by mouth once daily. spironolactone (ALDACTONE) 50 mg tablet Start once daily and increase to twice daily after 2 weeks if tolerating well. 180 tablet 1 acetaminophen (TYLENOL 8 HOUR ORAL) Take by mouth. No current facility-administered medications for this visit. 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 No past surgical history on file. No family history on file. SOCIAL HISTORY[1] Patient Goals: New to provider visit today. Lives in [place], [place], accompanied by SO HPI: This is a 44yo female presenting for a functional medicine consult with complaints of: Headaches: - Severe headaches began 4 days post-MRI with contrast, 5 weeks ago. - Describes headaches as different from previous ones, with severe pressure and a burning sensation under the scalp. - Headaches are constant, with only 4 days without pain since onset. - Pain radiates down the neck and behind the ears. - Associated symptoms: photophobia, dizziness, and nausea - Tylenol and Advil provide minimal relief. - Headaches are severe enough to disrupt sleep. - Followed by PCP; self reports brain MRI unremarkable - No neurologist Rashes: - Onset of rashes and hives approximately 3.5 weeks post-MRI. - Rashes appear on different parts of the body, including arms and chest. - Associated with constant itching on the back. - Prednisone prescribed by PCP provided no relief. Previously seen by Dr. 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 - Symptoms include severe fatigue, brain fog, and inability to function normally. - Symptoms have worsened since the MRI with contrast. PCOS: - Self reports diagnosed by technical staff assistant due to high testosterone levels and irregular periods every 2-3 weeks. - History of ovarian cysts, including emergency surgery for a cyst pressing against an artery. - Currently on control since March to manage symptoms. - Mentions hx of severe hair loss, losing 3/4 of hair. MTHFR Gene Mutation: - Mentions diagnosed with MTHFR gene mutation, leading to difficulty detoxifying. - Taking a multivitamin for MTHFR for almost a year. - Self reports low B12 and vitamin D levels prior to starting the multivitamin. 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 - Does not take medication due to sensitivity to medications. - Reports interrupted sleep and poor sleep quality, getting 7-8 hours of sleep per night. Diet and Lifestyle: - Skips lunch and sometimes breakfast - Dinner protein and vegetables - Drinks 2-3 water bottles (32 oz each) per day. - Consumes 1 cup of coffee with creamer daily. - Bowel movements once a day, but reports feeling incomplete evacuation for about a year; no hx of colonoscopy - Drinks alcohol occasionally, does not smoke or use substances. - Has good support from family and friends. - Stress level reported as 9/10 due to health concerns and caring for two young children. - Has seen a therapist in the past;not actively - No regular exercise in the past two weeks. Last PCP visit: within the past year Supplements: reviewed MV with methylated Bs Meds/Labs: in EMR Review of Systems: See HPI Objective: BP 119/78 (BP Site: Right Arm, BP Position: Sitting, BP Cuff Size: Regular Adult) Pulse 80 Ht 160 cm (5' 3) Wt 55.4 kg (122 lb 2.2 oz) BMI 21.64 kg/m? Physical Exam: General appearance: Well-appearing, NAD. Pleasant and conversational HEENT: NC/AT, PERRL, sclera white, nose patent bilaterally, no oral swelling/mucus membranes pink AND moist, tongue without fissures or white coating Neck: Non-tender. No obvious swelling or adenopathy Lungs: CTAB, no use of accessory muscles Heart: RRR, no obvious murmur Abdomen: Soft, non-tender. +BS Extremities: Non-tender and warm. No obvious joint swelling, redness, or pitting edema Neuro: No obvious motor, sensory, or focal deficits. Pt is ambulatory. Finger to nose WNL Psych: Affect normal. Behavior and judgement normal. Skin: Warm. No acute rash Initial Functional Medicine Assessment Nutritional Assessment Nutritional evaluation was performed. See above. Underlying Causes: Unmet nutritional needs from diet, concern for impaired gut barrier/dysbiosis, inadequate sleep, life stressors Today's Focus: Gut health Stress regulation Improve sleep quality Detox Mitochondrial support Hormone balance Digestive Function Daily formed Bms - doesn't feel like fully emptying DIAGNOSIS/ASSESSMENT: R63.8 Alteration in metabolic function (primary encounter diagnosis) F41.9 Anxiety Z87.42 History of PCOS R41.89 Brain fog F43.9 Stress R51.9 Nonintractable headache, unspecified chronicity pattern, unspecified headache type Plan and Lifestyle Prescription PLAN with Patient Instructions: Based on your evaluation today, these are my recommendations: Follow up with [facility] neurology for persistent, daily headaches - referral provided. Of course for any new concerns or if worse in any way, the ER is a 24/7 option Modified Core Diet: consider GF. Discuss well-sourced protein options and balanced meals/snack ideas. Expand vegetable diversity for microbiome support slowly and gently. Follow up with the registered nurse fetal (RD) for a customized food plan. Consider a 3-day food log/dietary recall assessment with your RD. Goals: Eliminate highly processed foods. Low ram on alcohol, sugar, and starches. Increase plant fiber intake with color variety (eat the rainbow) for gut health as tolerated. [facility] labs ordered Stress regulation: Try the 4-7-8 breath twice a day or at bedtime (Youtkatie De La Fuente 4-7-8). Take 1-2 deep breaths before eating meals Optionally, follow up with the CFM therapist to help process the stress you are experiencing Weekly movement routine: consider light walking 3x a week for 10 min (as tolerated) Restorative sleep: Pre-bedtime routine. No blue screens 1-2 hours before bed. Do something relaxing every night: read a book, meditate, try a deep breathing exercise, etc. Sleep goal 7-9 hours nightly Consistency: We have to build new neuro pathways for a sustainable health routine, including diet. Follow up with the health trolley coach driver every 2 weeks to keep things in check Minimize supplements: recommend a well-sourced Vitamin D. I like these brands: Plant-based organic vitamin D: Truvani brand 2000 IUs daily with food Notes: Natural ways to detox for gut-immune health: 1. Drink filtered water daily: 8 glasses (64 ounces). Urine should be pale, straw yellow in appearance. Never clear without color. 2. Eat organic as much as possible when available and within budget. Please visit the environmental working group to learn about fruits and veggies with the highest amount of toxins on them called the dirty dozen: EWG.org. Try to eat clean sources of meat as well. If you can not afford this, more vegetables than fruits are important to consume since they help up regulate your detoxification ability. 3. Eat the rainbow and use fresh and dried organic (preferred) spices such as: sara, parsley, oregano, cilantro. Increase plant fiber from dark leafy green and cruciferous vegetables: goal 1-2 cups per day. 4. Dry brushing: use loofah brush over body, always moving towards the heart daily before showering. If you feel worse with the above two, this is a sign of a lot of toxin build up, decrease what you are doing to the level you can tolerate. 5. Sauna 3x a week (as tolerated). Sweat for 8-10 min, shower directly after 6. Air quality in your house and at work are important. Consider investing in a good quality air purifier to clean the air. You can visit www.[employer].BigRoad to learn more. Other ways to improve air quality are to keep shades/blinds open throughout the day, changing your HVAC filter more often and using a higher grade (10 is preferred). 7. Reduce environmental exposures: Check EWG.org scores on the Skin Deep database [2 or less is best] for low tox skincare, cosmetics, and personal care products - Gluten is commonly found in processed foods like pizza, pasta, pastries, pretzels, bread, beer, crackers, cookies, cereal, and soy sauce. Also grains that contain gluten include: wheat, barley, and rye. Naturally gluten-free (GF) whole foods/grains: quinoa, wild rice, GF oats, millet, buckwheat, amaranth, sorghum, teff Organic tamari sauce is a GF soy sauce alternative. Whole Food Recipe Blogs Tikifely Benedict: https://Send Word Now/ Plant Based RD (Vegan and plant diverse): https://plantbaseVentrix.BigRoad/recipes/ Da[employer] [facility] Good Eats: https://[facility]/ Cookie and Macie: https://Fetch Technologies.BigRoad/ Love and Beto: https://www.ZUCHEM.BigRoad/recipes/ 101 Cookbooks: https://www.101cookbooks.com/ Naturally Lori:https://naturallyella.com/ The Real Food Dietitians: https://CBLPathidfooddietitians.BigRoad/ Follow up: Please schedule a follow up visit with the following Caregivers: Provider: 12weeks, Liquor Grinder Mill Operator: 4 weeks, and Health Front End Developer: 2 weeks Bundle Tier (RD): During the next 4-8 weeks you'll be working on your diet plan with our RD, allowing for gentle detoxification and decreasing inflammation - while we are gathering your lab results and combining those with your complete history to formulate a very personalized treatment plan. [phone]. Health Coaching: Recommend follow up every 2 weeks to develop a consistent routine. Please consider scheduling with our [facility] health coaches for a phone or virtual visit for accountability, goal setting and help with behavior change director the next 6-8 weeks to be successful with your goals. [phone]. CFM Therapist: This is optional. Weekly or bi-monthly appointments can be helpful. [phone]. Due to the complexity of the testing performed, we are not able to review labs via MyChart or over the phone, but please know, if any of your labs are critical we will contact you. Otherwise, we will review all your labs at your next visit. Time spent with patient: I spent a total of 60 minutes on the date of the service which included preparing to see the patient, [id number] patient care, completing clinical documentation, obtaining and/or reviewing separately obtained history, performing a medically appropriate examination, counseling and educating the patient/family/caregiver, and ordering medications, tests, or procedures. Nita Yanez APRN.[employer] 09/22/2024 11:31 AM [1] Nita Yanez APRN.KALEB 09/22/2024 11:31 AM Signed Plan and Lifestyle Prescription PLAN with Patient Instructions: Based on your evaluation today, these are my recommendations: Follow up with [facility] neurology for persistent, daily headaches - referral provided. Of course for any new concerns or if worse in any way, the ER is a 24/ option Modified Core Diet: consider GF. Discuss well-sourced protein options and balanced meals/snack ideas. Expand vegetable diversity for microbiome support slowly and gently. Follow up with the registered nurse fetal (RD) for a customized food plan. Consider a 3-day food log/dietary recall assessment with your RD. Goals: Eliminate highly processed foods. Low ram on alcohol, sugar, and starches. Increase plant fiber intake with color variety (eat the rainbow) for gut health as tolerated. [facility] labs ordered Stress regulation: Try the 4-7-8 breath twice a day or at bedtime (Youtkatie De La Fuente 4-7-8). Take 1-2 deep breaths before eating meals Optionally, follow up with the CFM therapist to help process the stress you are experiencing Weekly movement routine: consider light walking 3x a week for 10 min (as tolerated) Restorative sleep: Pre-bedtime routine. No blue screens 1-2 hours before bed. Do something relaxing every night: read a book, meditate, try a deep breathing exercise, etc. Sleep goal 7-9 hours nightly Consistency: We have to build new neuro pathways for a sustainable health routine, including diet. Follow up with the health trolley coach driver every 2 weeks to keep things in check Minimize supplements: recommend a well-sourced Vitamin D. I like these brands: Plant-based organic vitamin D: Truvani brand 2000 IUs daily with food Notes: Natural ways to detox for gut-immune health: 1. Drink filtered water daily: 8 glasses (64 ounces). Urine should be pale, straw yellow in appearance. Never clear without color. 2. Eat organic as much as possible when available and within budget. Please visit the environmental working group to learn about fruits and veggies with the highest amount of toxins on them called the dirty dozen: EWG.org. Try to eat clean sources of meat as well. If you can not afford this, more vegetables than fruits are important to consume since they help up regulate your detoxification ability. 3. Eat the rainbow and use fresh and dried organic (preferred) spices such as: sara, parsley, oregano, cilantro. Increase plant fiber from dark leafy green and cruciferous vegetables: goal 1-2 cups per day. 4. Dry brushing: use loofah brush over body, always moving towards the heart daily before showering. If you feel worse with the above two, this is a sign of a lot of toxin build up, decrease what you are doing to the level you can tolerate. 5. Sauna 3x a week (as tolerated). Sweat for 8-10 min, shower directly after 6. Air quality in your house and at work are important. Consider investing in a good quality air purifier to clean the air. You can visit www.[employer].BigRoad to learn more. Other ways to improve air quality are to keep shades/blinds open throughout the day, changing your HVAC filter more often and using a higher grade (10 is preferred). 7. Reduce environmental exposures: Check EWG.org scores on the Skin Deep database [2 or less is best] for low tox skincare, cosmetics, and personal care products - Gluten is commonly found in processed foods like pizza, pasta, pastries, pretzels, bread, beer, crackers, cookies, cereal, and soy sauce. Also grains that contain gluten include: wheat, barley, and rye. Naturally gluten-free (GF) whole foods/grains: quinoa, wild rice, GF oats, millet, buckwheat, amaranth, sorghum, teff Organic tamari sauce is a GF soy sauce alternative. Whole Food Recipe Blogs Tiki Benedict: https://Send Word Now/ Plant Based RD (Vegan and plant diverse): https://plantbasedrTeamBuylog.BigRoad/recipes/ Da[facility] Good Eats: https://[facility]/ Cookie and Macie: https://Fetch Technologies.BigRoad/ Love and Beto: https://www.ZUCHEM.BigRoad/recipes/ 101 Cookbooks: https://www.101cookbooks.BigRoad/ Naturally Lori:https://naturallyella.com/ The Real Food Dietitians: https://Breakout Commerce.BigRoad/ Follow up: Please schedule a follow up visit with the following Caregivers: Provider: 12weeks, Liquor Grinder Mill Operator: 4 weeks, and Health Front End Developer: 2 weeks Bundle Tier (RD): During the next 4-8 weeks you'll be working on your diet plan with our RD, allowing for gentle detoxification and decreasing inflammation - while we are gathering your lab results and combining those with your complete history to formulate a very personalized treatment plan. [phone]. Health Coaching: Recommend follow up every 2 weeks to develop a consistent routine. Please consider scheduling with our [facility] health coaches for a phone or virtual visit for accountability, goal setting and help with behavior change director the next 6-8 weeks to be successful with your goals. [phone]. CFM Therapist: This is optional. Weekly or bi-monthly appointments can be helpful. [phone]. Due to the complexity of the testing performed, we are not able to review labs via Datahughart or over the phone, but please know, if any of your labs are critical we will contact you. Otherwise, we will review all your labs at your next visit. Allergies As of Date: 09/22/2024 (No Known Allergies) Date Reviewed: 09/22/2024 Reviewed by: Tamar Paulino OCCA - Fully Assessed Reason for Visit: New Patient [172] Cmt: Headaches and other symptoms since MRI with contrast 5 weeks ago Primary Visit Diagnosis:Alteration in metabolic function [R63.8] Other Visit Diagnoses:Anxiety [F41.9] History of PCOS [Z87.42] Brain fog [R41.89] Stress [F43.9] Nonintractable headache, unspecified chronicity pattern, unspecified headache type [R51.9] Order(s):VITAMIN A/RETINOL [SQVITA] Order #: [id number] FUTURE OMEGACHECK [SQOMEGAC] Order #: [id number] FUTURE COPPER BLOOD [SQCOPPER] Order #: [id number] FUTURE VITAMIN B1 (THIAMINE), WHOLE BLOOD [SQB1WB] Order #: [id number] FUTURE MERCURY BLOOD [SQMERC2] Order #: [id number] FUTURE ARSENIC BLD [SQASB] Order #: [id number] FUTURE LEAD BLOOD [SQLEAD] Order #: [id number] FUTURE CADMIUM BLOOD [SQCADM] Order #: [id number] FUTURE CONSULT TO NEUROLOGY [9019] Order #: [id number]: 1 FUTURE VITAMIN B6/PYRIDOXIN [SQVITB6] Order #: [id number] FUTURE VITAMIN B2/RIBOFLAV [SQVITB2] Order #: [id number] FUTURE BIOTIN (VITAMIN B7) [SQVITB7] Order #: [id number] FUTURE VITAMIN B3/NIACIN [LOI0ZPQ] Order #: [id number] FUTURE VITAMIN B5(PANTOTHENIC AID) BIOASSAY [SQVITB5] Order #: [id number] FUTURE CONSULT TO FUNCTIONAL MEDICINE BEHAVIORAL HEALTH [0590698] Order #: [id number]: 1 FUTURE Prescriptions as of 09/22/2024 - Drospirenone-Ethinyl Estradiol (KAMAR 28) 3-0.02 mg per tablet Take 1 tablet by mouth once daily. - minoxidil (LONITEN) 2.5 mg tablet Take 1/2 a pill once daily for hair loss - spironolactone (ALDACTONE) 50 mg tablet Start once daily and increase to twice daily after 2 weeks if tolerating well. - acetaminophen (TYLENOL 8 HOUR ORAL) Take by mouth. - cholecalciferol, vitamin D3, (VITAMIN D3 ORAL) Take by mouth once daily. Problem List As Of Date 09/22/2024 Noted Resolved Echogenic focus of heart of fetus affecting ant*01/01/2015 Vitamin B12 deficiency [E53.8] 2023 Gastroesophageal reflux disease [K21.9] 2023 Other instructions from your clinician: Plan and Lifestyle Prescription PLAN with Patient Instructions: Based on your evaluation today, these are my recommendations: Follow up with [facility] neurology for persistent, daily headaches - referral provided. Of course for any new concerns or if worse in any way, the ER is a 24 option Modified Core Diet: consider GF. Discuss well-sourced protein options and balanced meals/snack ideas. Expand vegetable diversity for microbiome support slowly and gently. Follow up with the registered nurse fetal (RD) for a customized food plan. Consider a 3-day food log/dietary recall assessment with your RD. Goals: Eliminate highly processed foods. Low ram on alcohol, sugar, and starches. Increase plant fiber intake with color variety (eat the rainbow) for gut health as tolerated. [facility] labs ordered Stress regulation: Try the 4-7-8 breath twice a day or at bedtime (Youtkatie De La Fuente -7-8). Take 1-2 deep breaths before eating meals Optionally, follow up with the CFM therapist to help process the stress you are experiencing Weekly movement routine: consider light walking 3x a week for 10 min (as tolerated) Restorative sleep: Pre-bedtime routine. No blue screens 1-2 hours before bed. Do something relaxing every night: read a book, meditate, try a deep breathing exercise, etc. Sleep goal 7-9 hours nightly Consistency: We have to build new neuro pathways for a sustainable health routine, including diet. Follow up with the health trolley coach driver every 2 weeks to keep things in check Minimize supplements: recommend a well-sourced Vitamin D. I like these brands: Plant-based organic vitamin D: Truvani brand 2000 IUs daily with food Notes: Natural ways to detox for gut-immune health: 1. Drink filtered water daily: 8 glasses (64 ounces). Urine should be pale, straw yellow in appearance. Never clear without color. 2. Eat organic as much as possible when available and within budget. Please visit the environmental working group to learn about fruits and veggies with the highest amount of toxins on them called the dirty dozen: EWG.org. Try to eat clean sources of meat as well. If you can not afford this, more vegetables than fruits are important to consume since they help up regulate your detoxification ability. 3. Eat the rainbow and use fresh and dried organic (preferred) spices such as: sara, parsley, oregano, cilantro. Increase plant fiber from dark leafy green and cruciferous vegetables: goal 1-2 cups per day. 4. Dry brushing: use loofah brush over body, always moving towards the heart daily before showering. If you feel worse with the above two, this is a sign of a lot of toxin build up, decrease what you are doing to the level you can tolerate. 5. Sauna 3x a week (as tolerated). Sweat for 8-10 min, shower directly after 6. Air quality in your house and at work are important. Consider investing in a good quality air purifier to clean the air. You can visit www.ONtheAIR to learn more. Other ways to improve air quality are to keep shades/blinds open throughout the day, changing your HVAC filter more often and using a higher grade (10 is preferred). 7. Reduce environmental exposures: Check EWG.org scores on the Skin Deep database [2 or less is best] for low tox skincare, cosmetics, and personal care products - Gluten is commonly found in processed foods like pizza, pasta, pastries, pretzels, bread, beer, crackers, cookies, cereal, and soy sauce. Also grains that contain gluten include: wheat, barley, and rye. Naturally gluten-free (GF) whole foods/grains: quinoa, wild rice, GF oats, millet, buckwheat, amaranth, sorghum, teff Organic tamari sauce is a GF soy sauce alternative. Whole Food Recipe Blogs Tiki Benedict: https://gabyPresenceLearning/ Plant Based RD (Vegan and plant diverse): https://plantbasedrdblog.com/recipes/ Racdavide Good Eats: https://[facility]/ Cookie and Macie: https://Vozeeme/ Love and Beto: https://www.ZUCHEM.BigRoad/recipes/ 101 Cookbooks: https://www.101cookbooks.com/ Naturally Lori:https://naturallyella.com/ The Real Food Dietitians: https://CBLPathalfooddietitians.BigRoad/ Follow up: Please schedule a follow up visit with the following Caregivers: Provider: 12weeks, Liquor Grinder Mill Operator: 4 weeks, and Health Front End Developer: 2 weeks Bundle Tier (RD): During the next 4-8 weeks you'll be working on your diet plan with our RD, allowing for gentle detoxification and decreasing inflammation - while we are gathering your lab results and combining those with your complete history to formulate a very personalized treatment plan. [phone]. Health Coaching: Recommend follow up every 2 weeks to develop a consistent routine. Please consider scheduling with our [facility] health coaches for a phone or virtual visit for accountability, goal setting and help with behavior change director the next 6-8 weeks to be successful with your goals. [phone]. CFM Therapist: This is optional. Weekly or bi-monthly appointments can be helpful. [phone]. Due to the complexity of the testing performed, we are not able to review labs via Datahughart or over the phone, but please know, if any of your labs are critical we will contact you. Otherwise, we will review all your labs at your next visit. Disposition: Return in about 3 months (around 12/23/2024). Follow-up and Disposition History for Encounter Date Provider Department Center 09/22/2024 [id number], [facility] Main - Bld Encounter Status:Closed by NITA YANEZ on 09/22/24 ONCOLOGY PROGRESS NOTE Observed: 025 9:42 AM Status: F Source: [facility] Oncology Progress Note Chief Complaint New pt here for iron def anemia, no questions or concerns at this time. 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 Her past medical history is significant for anxiety, splenic rupture with repair. On further questioning, she also reports a history of Narcolepsy. Both parents are alive - father has HTN, OCD, anxiety, mom has high cholesterol. She has a brother who is alive and well. She had 2 children who are both healthy. 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 She is having extreme fatigue, achiness, spider veins, hair loss, inability to gain weight. these symptoms started around February of 2020 but have gotten significantly worse in the last year. She saw an technical staff assistant who thought she might be perimenopausal. She reports periods were very 3 weeks. Her periods are heavy the first 2-3 days (Has to wear a tampon and pad. Changes every 2-3 hours)hen slowly jailyn off over 6. She had a GI evaluation when she was having a lot of GERD. She had an endoscopy through [facility]. No dark tarry stool, abdominal pain, blood in stool. She has been on the control since March. She had a negative M spike, hemoglobin electrophoresis. Hemoglobin is now WNL as are her iron studies. Physical Examination ECOG PS:0 General: Alert and oriented, no acute distress. Eye: Extraocular movements are intact, normal conjunctiva. HENT: Normocephalic, normal hearing. Neck: Supple, non-tender, no jugular venous distention, no cervical adenopathy , no supraclavicular, or axillary adenopathy Cardiovascular: Normal rate, regular rhythm, no murmur, no edema. Gastrointestinal: Soft, non-tender, non-distended, normal bowel sounds, no organomegaly. Respiratory: Clear to auscultation bilaterally, no wheezes, rhonchi or rales. Integumentary: Warm, dry, pink, no pallor, no rash. Psychiatric: Cooperative, appropriate mood & affect. Assessment and Plan Iron Deficiency This corrected with her oral supplement. Her periods decreased in frequency and intensity due to starting on control. She had a recent endoscopy at [facility]. She is not currently having any stomach issues. Agree with continue iron supplement and checking PRN through PCP. Continue controlling heavy periods. Menorrhagia Improved after control starting. Narcolepsy I recommended that she start following with a sleep doctor for this. Tried several treatments in the past that either didn't help or made her anxiety worse. Narcolepsy contributes to her chronic daytime fatigue and brain fog. She will call if she wants a referral to sleep medicine ( Dr. Booth has a special interest in narcolepsy). Follow-up No qualifying data available Get records of endoscopy records from [facility]. PRN Medications Multi Vitamin+ Valium 10 mg Tab, 10 mg= 1 tab(s), Oral, Once, PRN Xanax 0.25 mg Tab, 0.25 mg= 1 tab(s), Oral, q8hr, 1 refills Vital Signs and Measurements Vital Signs and Measurements This Visit - Last 24 Hours T: 36.7 ???C (Oral) HR: 69 (Peripheral) RR: 16 BP: 105/68 SpO2: 100% HT: 163.0 cm HT: 163.0 cm WT: 54.6 kg (Dosing) WT: 54.6 kg BMI: 20.55 BSA: 1.57 Staging Information No information available Labs Common Labs Event Name Event Result Date/Time WBC 4.7 E9/L 08/22/24RBC 4.6 E12/L 08/22/24HGB 13.8 gm/dL 08/22/24Hct 39.1 % 08/22/24MCV 85.3 fL 08/22/24MCH 30.2 pg 08/22/24MCHC 35.4 gm/dL 08/22/24RDW 12.6 % 08/22/24Platelet 218 E9/L 08/22/24MPV 7.5 fL 08/22/24Neutro Auto 66.9 % 08/22/24Lymph Auto 23.4 % 08/22/24Mono Auto 7.3 % 08/22/24Eos Auto 1.7 % 08/22/24Basophil Auto 0.7 % 08/22/24Neutro Absolute 3.1 E9/L 08/22/24Lymph Absolute 1.1 E9/L 08/22/24Mono Absolute 0.3 E9/L 08/22/24Eos Absolute 0.1 E9/L 08/22/24Basophil Absolute 0 E9/L 08/22/24Sed Rate Automated 6 mm/hr 08/22/24Glucose Lvl 83 mg/dL 08/22/24BUN 8 mg/dL 08/22/24Creatinine 0.8 mg/dL 08/22/24Potassium Lvl 3.7 mmol/L 08/22/24Chloride 98 mmol/L Low 08/22/24CO2 27 mmol/L 08/22/24Calcium Lvl 9.3 mg/dL 08/22/24Total Protein 7.2 gm/dL 08/22/24Albumin Lvl 4.5 gm/dL 08/22/24Bili Total 0.5 mg/dL 08/22/24Iron 87 mcg/dL 08/22/24Vitamin B12 Lvl 873 pg/mL 08/22/24Ferritin Lvl 31 ng/mL 08/22/24Albumin Level 4.1 08/22/24 Hematologic Labs Event Name Event Result Date/Time Alk Phos 25 Int._Unit/L 08/22/24ALT 12 Int._Unit/L 08/22/24AST 14 Int._Unit/L 08/22/24Total Protein 7.2 gm/dL 08/22/24Protein Total 7.1 08/22/24Albumin Lvl 4.5 gm/dL 08/22/24Globulin 3.0 08/22/24Globulin 2.7 gm/dL 08/22/24A/G Ratio 1.4 08/22/24A/G Ratio 1.7 08/22/24Bili Total 0.5 mg/dL 08/22/24Albumin Level 4.1 08/22/24Alpha 1 Glob 0.2 08/22/24Alpha 2 Glob 0.6 08/22/24Beta Glob 1.0 08/22/24Gamma Glob 1.2 08/22/24IgA Quant 174 08/22/24IgG Quant 1151 08/22/24IgM Quant 152 08/22/24Immunofix. Result Comment 08/22/24M-Prem Not Observed 08/22/24Note Comment 08/22/24 Result Comment: Electronical ly Signed By: HORACIO BOOTH CNP\Date and Time Signed: 08/31/24 11:17 EDT COMPLETE BLOOD COUNT AUTO DIFF Collected: 08/26/2024 5:47 PM Status: F Source: [facility] TYPE CODE TESTS RESULT OUT OF RANGE REFERENCE UNITS LAB WBC White Blood Count 6.3 Normal 3.8-11.6 [CFU]/mL LAB UNWBC Uncorrected WBC 6.3 Normal 3.8-11.6 10*3/uL LAB RBC Red Blood Count 4.82 Normal 3.60-5.00 10*6/u L LAB HGB Hemoglobin 14.3 Normal 11.8-15.4 g/dL LAB HCT Hematocrit 42.1 Normal 34.0-46.4 % LAB MCV Mean Corpuscular Volume 87.2 Normal 80-100 fL LAB MCH Mean Corpuscular Hemoglobin 29.6 Normal 24.7-34.3 pg LAB MCHC Mean Corpuscular HGB Conc 34.0 Normal 32.0-35.0 g/dL LAB RDW Red Cell Distribution Width 12.6 Normal 11.9-15.3 % LAB PLT Platelet Count 223 Normal 150-450 10*3/uL LAB MPV Mean Platelet Volume 7.4 Normal 6.3-10.7 fL LAB MDW Monocyte Distribution Width 17.92 Normal 0.00-20.00 % LAB NE% Neutrophils % (Auto) 53.3 . % LAB LY% Lymphocytes % (Auto) 39.1 . % LAB MO% Monocytes % (Auto) 4.4 . % LAB EO% Eosinophils % (Auto) 2.7 . % LAB BA% Basophils % (Auto) 0.5 . % LAB NRBC% NRBC% 0.2 Normal 0-0.5 /100{WBC } LAB NE# Neutrophils # (Auto) 3.3 Normal 1.8-7.7 10*3/uL LAB LY# Lymphocytes # (Auto) 2.5 Normal 1.00-4.8 10*3/uL LAB MO# Monocytes # (Auto) 0.3 Normal 0.0-0.8 10*3/uL LAB EO# Eosinophils # (Auto) 0.2 Normal 0.0-0.45 10*3/uL LAB BA# Basophils # (Auto) 0.0 Normal 0.0-0.2 10*3/uL Result Comment: PERFORMED BY : [facility] [place] [address] PATHOLOGIST [employer] MERYL MALAVE M.D. Performed By: #### CBC, CMP #### [facility] [address] [id number] [facility] COMPREHENSIVE METABOLIC PANEL Collected: 08/26/2024 5 :47 PM Status: F Source: [facility] TYPE CODE TESTS RESULT OUT OF RANGE REFERENCE UNITS LAB GLU Glucose 79 Normal 70-100 mg/dL Result Comment: Random Gluco se Reference Range is dependent on time and content of last meal. Glucose of more than 200 mg/dL in a nonstressed, ambulatory subject supports the diagnosis of Diabetes Mellitus. ADA recommended reference range LAB BUN Blood Urea Nitrogen 13 Normal 7-25 mg/d L LAB CREATT Creatinine 0.71 Normal 0.60-1.20 mg/dL LAB GFReNR Estimated GFR >60.0 LAB NA Sodium 137 Normal 136-145 mmol/L LAB K Potassium 3.8 Normal 3.5-5.1 mmol/L LAB CL Chloride 102 Normal 98-107 mmol/L LAB CO2 Carbon Dioxide 29.1 Normal 21.0-31.0 mmol/L LAB GAP Anion Gap 9.7 Normal 6.0-15.0 LAB CA Calcium 9.7 Normal 8.6-10.3 mg/dL LAB TP Total Protein 7.6 Normal 6.4-8.9 g/dL LAB ALB Albumin Level 4.6 Normal 3.5-5.7 g/dL LAB GLOB Globulin 3.0 g/dL LAB AGRATIO Albumin/Globulin Ratio 1.5 LAB BILIT Bilirubin,Total 0.4 Normal 0.3-1.0 mg/dL LAB AST Aspartate Amino Transferase 13 Normal 13-39 U/L LAB ALT Alanine Aminotransferase 14 Normal 7-52 U/L LAB ALP Alkaline Phosphatase 25 Low 34-104 U/L LAB CRCLPHA Creatinine Clr C alc Pharmacy 86.26 Result Comment: PERFORMED BY : [place] [address] PATHOLOGIST [employer]PER[employer]OR MERYL MALAVE M.D. Performed By: #### CBC, CMP #### [facility] [address] [place], [place] [id number] [facility] REMINDERS Observed: 08/25/2024 1:37 PM Status: C Source: [facility] Reminders From: WHITNEY VENTURA To: [facility] - Clinical; Sent: 08/25/2024 13:37:01 EDT Show up: 08/25/2024 13:37:00 EDT Subject: Ambulatory Reminder Due Date/Time: 08/26/2024 13:36:00 EDT all lab work normal Results: Date Result Name Ind Value Ref Range 08/22/2024 8:41 WBC 4.7 E9/L (4.0 - 11.0) 08/22/2024 8:41 RBC 4.6 E12/L (4.3 - 5.9) 08/22/2024 8:41 HGB 13.8 gm/dL (12.0 - 16.0) 08/22/2024 8:41 Hct 39.1 % (34.0 - 46.0) 08/22/2024 8:41 MCV 85.3 fL (80.0 - 100.0) 08/22/2024 8:41 MCH 30.2 pg (27.0 - 34.0) 08/22/2024 8:41 MCHC 35.4 gm/dL (31.4 - 36.0) 08/22/2024 8:41 RDW 12.6 % (10.9 - 14.2) 08/22/2024 8:41 Platelet 218.0 E9/L (150.0 - 500.0) 08/22/2024 8:41 MPV 7.5 fL (6.4 - 10.8) 08/22/2024 8:41 Neutro Auto 66.9 % (36.0 - 75.0) 08/22/2024 8:41 Lymph Auto 23.4 % (14.0 - 50.0) 08/22/2024 8:41 [place] Auto 7.3 % (4.0 - 14.0) 08/22/2024 8:41 Eos Auto 1.7 % (0.0 - 8.0) 08/22/2024 8:41 Basophil Auto 0.7 % (0.0 - 2.0) 08/22/2024 8:41 Neutro Absolute 3.1 E9/L (2.0 - 7.5) 08/22/2024 8:41 Lymph Absolute 1.1 E9/L (1.0 - 4.0) 08/22/2024 8:41 [place] Absolute 0.3 E9/L (0.2 - 1.0) 08/22/2024 8:41 Eos Absolute 0.1 E9/L (0.0 - 0.5) 08/22/2024 8:41 Basophil Absolute 0.0 E9/L (0.0 - 0.2) 08/22/2024 8:41 Sed Rate Automated 6 mm/hr (0 - 34) 08/22/2024 8:41 Glucose Lvl 83 mg/dL (55 - 199) 08/22/2024 8:41 BUN 8 mg/dL (5 - 21) 08/22/2024 8:41 Creatinine 0.8 mg/dL (0.5 - 1.3) 08/22/2024 8:41 eGFR 94 mL/min/1.73 m2 (>=59 - ) 08/22/2024 8:41 BUN/Creat Ratio 10 (10 - 20) 08/22/2024 8:41 Sodium Lvl (L) 133 mmol/L (135 - 145) 08/22/2024 8:41 Potassium Lvl 3.7 mmol/L (3.5 - 5.3) 08/22/2024 8:41 Chloride (L) 98 mmol/L (101 - 111) 08/22/2024 8:41 CO2 27 mmol/L (21 - 31) 08/22/2024 8:41 AGAP 12 mEq/L (6 - 16) 08/22/2024 8:41 Calcium Lvl 9.3 mg/dL (8.9 - 11.1) 08/22/2024 8:41 Alk Phos 25 Int._Unit/L (21 - 98) 08/22/2024 8:41 ALT 12 Int._Unit/L (6 - 46) 08/22/2024 8:41 AST 14 Int._Unit/L (5 - 43) 08/22/2024 8:41 Total Protein 7.2 gm/dL (6.0 - 7.8) 08/22/2024 8:41 Albumin Lvl 4.5 gm/dL (3.3 - 5.0) 08/22/2024 8:41 Globulin 2.7 gm/dL (1.4 - 4.0) 08/22/2024 8:41 A/G Ratio 1.7 (1.1 - 2.2) 08/22/2024 8:41 Bili Total 0.5 mg/dL (0.0 - 1.1) 08/22/2024 8:41 Iron 87 mcg/dL (35 - 153) 08/22/2024 8:41 TSH 0.86 mcIU/mL (0.34 - 5.60) 08/22/2024 8:41 CRP High Sens 0.07 mg/dL ( - <=0.75) 08/22/2024 8:41 Vitamin B12 Lvl 873 pg/mL (50 - 1,500) 08/22/2024 8:41 Vitamin D 25 Hydroxy 46.6 ng/mL (30.0 - 100.0) 08/22/2024 8:41 Ferritin Lvl 31 ng/mL (11 - 307) Pt notified verbalized understanding REMINDERS Observed: 08/25/2024 1:37 PM Status: F Source: [facility] Reminders From: WHITNEY VENTURA To: [facility] - Clinical; Sent: 08/25/2024 13:37:01 EDT Show up: 08/25/2024 13:37:00 EDT Subject: Ambulatory Reminder Due Date/Time: 08/26/2024 13:36:00 EDT all lab work normal Results: Date Result Name Ind Value Ref Range 08/22/2024 8:41 WBC 4.7 E9/L (4.0 - 11.0) 08/22/2024 8:41 RBC 4.6 E12/L (4.3 - 5.9) 08/22/2024 8:41 HGB 13.8 gm/dL (12.0 - 16.0) 08/22/2024 8:41 Hct 39.1 % (34.0 - 46.0) 08/22/2024 8:41 MCV 85.3 fL (80.0 - 100.0) 08/22/2024 8:41 MCH 30.2 pg (27.0 - 34.0) 08/22/2024 8:41 MCHC 35.4 gm/dL (31.4 - 36.0) 08/22/2024 8:41 RDW 12.6 % (10.9 - 14.2) 08/22/2024 8:41 Platelet 218.0 E9/L (150.0 - 500.0) 08/22/2024 8:41 MPV 7.5 fL (6.4 - 10.8) 08/22/2024 8:41 Neutro Auto 66.9 % (36.0 - 75.0) 08/22/2024 8:41 Lymph Auto 23.4 % (14.0 - 50.0) 08/22/2024 8:41 [place] Auto 7.3 % (4.0 - 14.0) 08/22/2024 8:41 Eos Auto 1.7 % (0.0 - 8.0) 08/22/2024 8:41 Basophil Auto 0.7 % (0.0 - 2.0) 08/22/2024 8:41 Neutro Absolute 3.1 E9/L (2.0 - 7.5) 08/22/2024 8:41 Lymph Absolute 1.1 E9/L (1.0 - 4.0) 08/22/2024 8:41 [place] Absolute 0.3 E9/L (0.2 - 1.0) 08/22/2024 8:41 Eos Absolute 0.1 E9/L (0.0 - 0.5) 08/22/2024 8:41 Basophil Absolute 0.0 E9/L (0.0 - 0.2) 08/22/2024 8:41 Sed Rate Automated 6 mm/hr (0 - 34) 08/22/2024 8:41 Glucose Lvl 83 mg/dL (55 - 199) 08/22/2024 8:41 BUN 8 mg/dL (5 - 21) 08/22/2024 8:41 Creatinine 0.8 mg/dL (0.5 - 1.3) 08/22/2024 8:41 eGFR 94 mL/min/1.73 m2 (>=59 - ) 08/22/2024 8:41 BUN/Creat Ratio 10 (10 - 20) 08/22/2024 8:41 Sodium Lvl (L) 133 mmol/L (135 - 145) 08/22/2024 8:41 Potassium Lvl 3.7 mmol/L (3.5 - 5.3) 08/22/2024 8:41 Chloride (L) 98 mmol/L (101 - 111) 08/22/2024 8:41 CO2 27 mmol/L (21 - 31) 08/22/2024 8:41 AGAP 12 mEq/L (6 - 16) 08/22/2024 8:41 Calcium Lvl 9.3 mg/dL (8.9 - 11.1) 08/22/2024 8:41 Alk Phos 25 Int._Unit/L (21 - 98) 08/22/2024 8:41 ALT 12 Int._Unit/L (6 - 46) 08/22/2024 8:41 AST 14 Int._Unit/L (5 - 43) 08/22/2024 8:41 Total Protein 7.2 gm/dL (6.0 - 7.8) 08/22/2024 8:41 Albumin Lvl 4.5 gm/dL (3.3 - 5.0) 08/22/2024 8:41 Globulin 2.7 gm/dL (1.4 - 4.0) 08/22/2024 8:41 A/G Ratio 1.7 (1.1 - 2.2) 08/22/2024 8:41 Bili Total 0.5 mg/dL (0.0 - 1.1) 08/22/2024 8:41 Iron 87 mcg/dL (35 - 153) 08/22/2024 8:41 TSH 0.86 mcIU/mL (0.34 - 5.60) 08/22/2024 8:41 CRP High Sens 0.07 mg/dL ( - <=0.75) 08/22/2024 8:41 Vitamin B12 Lvl 873 pg/mL (50 - 1,500) 08/22/2024 8:41 Vitamin D 25 Hydroxy 46.6 ng/mL (30.0 - 100.0) 08/22/2024 8:41 Ferritin Lvl 31 ng/mL (11 - 307) REMINDERS Observed: 08/22/2024 10:39 AM Status: C Source: [facility] Reminders From: WHINTEY VENTURA To: [facility] - Clinical; Sent: 08/22/2024 10:39:05 EDT Show up: 08/22/2024 10:37:00 EDT Subject: Ambulatory Reminder Due Date/Time: 08/23/2024 10:36:00 EDT Thyroid US showed some very small nodules - no further testing recommended per radiology. What we will do is recheck the area in 1 year. Results: Date Result Type Result Name 08/19/2024 15:28 Radiology US Thyroid Spoke with patient regarding US results. States understanding. She does note that since she had the MRI completed she has had headaches and flank/lower back pain. She has increased her fluid intake, thinking it may be a side effect from contrast dye. She is wondering if she should be concerned or if there is anything else she can do to flush the contrast out of her system. From: Nayeli Boone LPN ([facility] - Clinical) To: ACOSTA VENTURA; Sent: 08/22/2024 14:42:04 EDT ! Show up: 08/22/2024 14:42:00 EDT REMINDERS Observed: 08/22/2024 10:36 AM Status: C Source: [facility] Reminders From: WHITNEY VENTURA To: [facility] Clinical; Sent: 08/22/2024 10:36:27 EDT Show up: 08/22/2024 10:37:00 EDT Subject: Ambulatory Reminder Due Date/Time: 08/23/2024 10:36:00 EDT Brain MRI completely normal Results: Date Result Type Result Name 08/19/2024 14:33 Radiology MRI Brain w/ + w/o Contrast Spoke with patient regarding provider message below. Advised of MRI results. Patient states understanding and declines any questions or concerns. CMP Collected: 08/22/2024 8:41 AM Status: F Source: [facility] TYPE CODE TESTS RESULT OUT OF RANGE REFERENCE UNITS LAB [id number](LOINC) Glucose Lvl 83 Normal 55-199 mg/d L LAB [id number](LOINC) BUN 8 Normal 5-21 mg/dL LAB 3858530(LOINC) Creatinine 0.8 Normal 0.5-1.3 mg/dL LAB [id number](INC) Calcium Lvl 9.3 Normal 8.9-11.1 mg/ dL LAB [id number](INC) Sodium Lvl 133 Low 135-145 mmol/ L LAB 52171166(INC) Potassium Lvl 3.7 Normal 3.5-5.3 mm ol/L LAB 94423047(INC) Chloride 98 Low 101-111 mmol/L LAB [id number](INC) CO2 27 Normal 21-31 mmol/L LAB 38191450([facility]) Alk Phos 25 Normal 21-98 Int._Un it /L LAB 23711295([facility]) Bili Total 0.5 Normal 0.0-1.1 mg/dL LAB 93241267(INC) Albumin Lvl 4.5 Normal 3.3-5.0 gm/d L LAB 37113497(INC) Total Protein 7.2 Normal 6.0-7.8 gm /dL LAB 11885934(INC) ALT 12 Normal 6-46 Int._Uni t /L LAB 59781433(INC) AST 14 Normal 5-43 Int._Uni t /L LAB 78164640(INC) BUN/Creat Ratio 10 Normal 10-20 No Units LAB [id number]([facility]) AGAP 12 Normal 6-16 mEq/L LAB 52294523([facility]) Globulin 2.7 Normal 1.4-4.0 gm/dL LAB 41310153([facility]) A/G Ratio 1.7 Normal 1.1-2.2 Performed By: #### [id number] # ### [facility] [address] [place] [address] INSULIN FREE AND TOTAL Collected: 08/22 8:41 AM Status: F Source: [facility] TYPE CODE TESTS RESULT OUT OF RANGE REFERENCE UNITS LAB 56907665([facility]) Insulin Free 4.9 Unknown Result Comment: Reference Ra nge: Pubertal Children and Adults (fasting): 0 - 17 LAB 67930676([facility]) Insulin Lvl 4.9 Unknown Result Comment: Non-Diabetic : In the absence of insulin-binding antibodies, the free and total insulin assays are equivalent. However, this assay is intended for use in diabetics with insulin autoantibody present. Measurement is performed on acid-treated samples and, therefore, the sensitivity and absolute values by this method may differ from our direct insulin ICMA. Insulin Dependent Diabetic Patients: Free Insulin levels vary depending on the capacity and affinity of circulating insulin-binding antibodies and the dose of insulin given to the patient. Total insulin levels represent free insulin and antibody bound insulin fractions. This test was developed and its performance characteristics determined by [facility]. It has not been cleared or approved by the Food and Drug Administration. Performed at: [facility] [address], [place] [id number] MD Tony Valiente Performed By: #### [id number] #### [facility] [address] [place] [address] TSH WITH T4FR REFLEX Collected: 025 8:41 AM Status: F Source: [facility] TYPE CODE TESTS RESULT OUT OF RANGE REFERENCE UNITS LAB 06853352(LOINC) TSH 0.86 Normal 0.34-5.60 mcIU/m L Performed By: #### [id number] #### [facility] [address] [place] [address] KEL W/REFLEX IF POS Collected: 08/23/19 8:41 AM Status: F Source: [facility] TYPE CODE TESTS RESULT OUT OF RANGE REFERENCE UNITS LAB 57670353(LOINC) KEL Direct Negative Unknown Negative Result Comment: Performed at : [address] [id number] PhD Annabel Riley Performed By: #### [id number] #### [facility] [address] [place] [address] SED RATE AUTOMATED Collected: 08/22/2024 8:41 AM Sta tus: F Source: [facility] TYPE CODE TESTS RESULT OUT OF RANGE REFERENCE UNITS LAB 14482341(LOINC) Sed Rate Automated 6 Normal 0-34 mm/hr Performed By: #### [id number] #### [facility] [address] [place] [address] IRON Collected: 8:41 AM Status: F Source: [facility] TYPE CODE TESTS RESULT OUT OF RANGE REFERENCE UNITS LAB 32979390(INC) Iron 87 Normal 35-153 microgra m/ dL Performed By: #### [id number] # ### [facility] [address] [place] [address] CRP HS Collected: 08/22/2024 8:41 AM Status: F Source: [facility] TYPE CODE TESTS RESULT OUT OF RANGE REFERENCE UNITS LAB 82161513([facility]) CRP High Sens 0.07 Normal <=0.75 mg /dL Performed By: #### [id number] #### [facility] [address] [place] [address] CBC W/ AUTO DIFF Collected: 8:41 AM Status: F Source: [facility] TYPE CODE TESTS RESULT OUT OF RANGE REFERENCE UNITS LAB 61994064(LOINC) WBC 4.7 Normal 4.0-11.0 E9/L LAB 38345675(LOINC) RBC 4.6 Normal 4.3-5.9 E12/L LAB 74431213(LOINC) HGB 13.8 Normal 12.0-16.0 gm/dL LAB 08340694(LOINC) Hct 39.1 Normal 34.0-46.0 % LAB 18068226(LOINC) RDW 12.6 Normal 10.9-14.2 % LAB 30025969(LOINC) MCH 30.2 Normal 27.0-34.0 pg LAB 42081707(LOINC) MCHC 35.4 Normal 31.4-36.0 gm/dL LAB 47838321(LOINC) MCV 85.3 Normal 80.0-100.0 fL LAB 09909760(LOINC) MPV 7.5 Normal 6.4-10.8 fL LAB 12593920(LOINC) Platelet 218.0 Normal 150.0-500.0 E9/ L LAB 35373862(LOINC) Neutro Auto 66.9 Normal 36.0-75.0 % LAB 59794443(LOINC) Lymph Auto 23.4 Normal 14.0-50.0 % LAB 84450741(LOINC) [place] Auto 7.3 Normal 4.0-14.0 % LAB 17811718(LOINC) Eos Auto 1.7 Normal 0.0-8.0 % LAB 87732755(LOINC) Basophil Auto 0.7 Normal 0.0-2.0 % LAB 34694080(LOINC) Neutro Absolute 3.1 Normal 2.0-7.5 E9/L LAB 53220221(LOINC) Lymph Absolute 1.1 Normal 1.0-4.0 E9/L LAB 02832653(LOINC) [place] Absolute 0.3 Normal 0.2-1.0 E9 /L LAB 58041363(LOINC) Eos Absolute 0.1 Normal 0.0-0.5 E9/ L LAB 74196473(LOINC) Basophil Absolute 0.0 Normal 0.0-0.2 E9/L Performed By: #### [id number] # ### [facility] [address] [place] [address] VITAMIN D 25 HYDROXY Collected: 08/22/2024 8:41 AM S tatus: F Source: [facility] TYPE CODE TESTS RESULT OUT OF RANGE REFERENCE UNITS LAB CD:[id number]([facility]) Vitamin D 25 Hydroxy 46.6 Normal 30.0-100.0 ng/mL Performed By: #### [id number] #### [facility] [address] [place] [address] LYME ABS RFX Collected: 8:41 AM Status: F Source: [facility] TYPE CODE TESTS RESULT OUT OF RANGE REFERENCE UNITS LAB CD:[id number](L OINC) Lyme Total Antibody HARPREET Negative Unknown Negative Result Comment: Lyme antibod ies not detected. Reflex testing is not indicated. No laboratory evidence of infection with B. burgdorferi (Lyme disease). Negative results may occur in patients recently infected (less than or equal to 14 days) with B. burgdorferi. If recent infection is suspected, repeat testing on a new sample collected in 7 to 14 days is recommended. Performed at: [facility] [id number] PhD Annabel Riley Performed By: #### [id number] #### [facility] [address] [place], [place] [id number] EGFR Collected: 8:41 AM Status: F Source: [facility] TYPE CODE TESTS RESULT OUT OF RANGE REFERENCE UNITS LAB 80110013(LOINC) eGFR 94 Normal >=59 mL/min/1 .7 3 m2 Performed By: #### [id number] #### [facility] [address] [place], [place] [address] FERRITIN Collected: 08/22/2024 8:41 AM Status: F Source: [facility] TYPE CODE TESTS RESULT OUT OF RANGE REFERENCE UNITS LAB 41631064(LOINC) Ferritin Lvl 31 Normal 11-307 ng/ mL Performed By: #### [id number] # ### [facility] [address] [place] [address] RF QUANT Collected: 8:41 AM Status: F Source: [facility] TYPE CODE TESTS RESULT OUT OF RANGE REFERENCE UNITS LAB 62414025(LOINC) RA Latex Turbid 10.3 Unknown <14.0 Internati onal_Unit /mL Result Comment: Performed at : [facility] [address] [id number] PhD Annabel Riley Performed By: #### [id number] #### [facility] [address] [place], [place] [address] VIT B12 Collected: 08/22/2024 8:41 AM Status: F Source: [facility] TYPE CODE TESTS RESULT OUT OF RANGE REFERENCE UNITS LAB 64761588(LOINC) Vitamin B12 Lvl 873 Normal 50-1500 pg/mL Performed By: #### [id number] # ### [facility] [address] [place] [address] ASIM AND PE, SERUM Collected: 8:41 AM Status: F Source: [facility] TYPE CODE TESTS RESULT OUT OF RANGE REFERENCE UNITS LAB 56675899(LOINC ) IgG Quant 1151 Unknown 586-1602 mg/dL LAB 21949139(LOINC ) IgA Quant 174 Unknown 87-352 mg/dL LAB 41203947(LOINC ) IgM Quant 152 Unknown 26-217 mg/dL LAB 16918368(INC ) Protein Total 7.1 Unknown 6.0-8.5 gm/dL LAB [id number](INC ) Albumin Level 4.1 Unknown 2.9-4.4 gm/dL LAB [id number](LOINC ) Alpha 1 Glob 0.2 Unknown 0.0-0.4 gm/dL LAB [id number](INC ) Alpha 2 Glob 0.6 Unknown 0.4-1.0 gm/dL LAB [id number](INC ) Beta Glob 1.0 Unknown 0.7-1.3 gm/dL LAB [id number](INC ) Gamma Glob 1.2 Unknown 0.4-1.8 gm/dL LAB [id number](INC ) M-Prem Not Observed Unknown Not Observed gm/dL LAB [id number]([facility] ) Globulin 3.0 Unknown 2.2-3.9 gm/dL LAB [id number](INC ) A/G Ratio 1.4 Unknown 0.7-1.7 LAB [id number]([facility] ) Immunofix. Result Comment Unknown Result Comment: No monoclona lity detected. LAB [id number]([facility] ) Note Comment Unknown Result Comment: Protein elec trophoresis scan will follow via computer, mail, or industrial production manager delivery. Performed at: [facility] [id number] PhD Annabel Riley Performed By: #### [id number] #### [facility] [address] [place] [id number] THYROID Observed: 08/18/2024 3:04 PM Status: F Source: [facility] Exam Date/Time: 08/18/2024 15:29 EDT Reason for Exam: E07.89;Hypothyroidism Report IMPRESSION: 0.5 X 0.5 X 0.3 CM RIGHT LOBE LOWER POLE NODULE. NO FURTHER WORKUP RECOMMENDED. 0.6 X 0.5 X 0.3 CM RIGHT LOBE LOWER POLE NODULE. NO FURTHER WORKUP RECOMMENDED. THYROID SONOGRAPHY WITH COLOR FLOW. CLINICAL HISTORY: Hypothyroidism, E07.89 COMPARISONS: None available. FINDINGS: Biplanar images were obtained. The right lobe measures 5.0 cm x 1.5 cm x 0.9 cm with a volume of 3.6 cm3. The left lobe measures 4.9 cm x 1.5 cm x 0.8 cm with a volume of 3.2 cm3. The isthmus measures 0.3 cm. In the right lobe, lower pole posteriorly, a 0.5 x 0.5 x 0.3 cm mixed cystic and solid, isoechoic, wider than tall, smoothly marginated, noncalcified nodule is identified (TR 2). In the right lobe, lower pole posteriorly, a 0.6 x 0.5 x 0.3 cm mixed cystic and solid, isoechoic, wider than tall, smoothly marginated, noncalcified nodule is demonstrated (TR 2). Ordering Provider: ACOSTA VARELA FINAL REPORT Dictated: 08/19/2024 3:24 pm Darien Austin MD Signed (Electronic Signature): 08/19/2024 3:24 pm Signed by: Darien Austin MD Transcribed by: RAIA Technologist: [email or web address] MRI BRAIN W/ + W/O CONTRAST Observed: 1:53 PM Status: F Source: [facility] Exam Date/Time: 08/18/2024 14:48 EDT Reason for Exam: R51.9;Demyelinating disease Report IMPRESSION: No acute intracranial process or suspicious enhancement. HISTORY: Brain follow-up. Headaches. Concern for demyelinating disease. TECHNIQUE: Brain MRI protocol including sequences according to demyelination protocol, without and with contrast including diffusion images. COMPARISON: None. RESULT: Acute Change: There is no evidence of restricted diffusion to suggest an acute infarct. Hemorrhage: No evidence of prior parenchymal hemorrhage. Mass Lesion/ Mass Effect: No evidence of an intracranial mass or extra-axial fluid collection. No abnormal parenchymal or leptomeningeal enhancement following contrast administration. No significant mass effect. Chronic Change: The white matter is within normal limits of signal intensity for age. Parenchyma: No significant volume loss for age. Ventricles: Normal caliber and morphology. Skull Base: Hypothalamic and pituitary region are grossly normal. Craniocervical junction is normal. No significant marrow replacement process. Vasculature: Major intracranial arterial structures, and dural venous sinuses show typical flow void, suggesting patency. Other: The visualized paranasal are clear. Mastoid air cells are clear. The orbits are unremarkable. The extracranial soft tissues are unremarkable. Tech Comments: Contrast: Vueway Contrast amount in ml's: 6.00 Report Ordering Provider: ACOSTA VARELA FINAL REPORT Dictated: 08/19/2024 2:30 pm Wayne Dickens MD. Signed (Electronic Signature): 08/19/2024 2:30 pm Signed by: Wayne Dickens MD Transcribed by: ARIA Technologist: MAAME AMBULATORY VISIT SUMMARY Observed: 08/10 8:30 AM Status: F Source: [facility] Ambulatory Visit Summary URMILA RODRIGUEZ :1980 Visit Date:08/10/2024 Ambulatory Visit Instructions Your Diagnosis Anemia Anxiety Claustrophobia Poor circulation of extremity Your Care Team Attending Physician - WHITNEY VENTURA Primary Care Physician - WHITNEY VENTURA This Is Your Medications List alprazolam (Xanax 0.25 mg Tab) diazepam (Valium 10 mg Tab) multivitamin (Multi Vitamin+) Discharge Vitals Heart Rate (Peripheral) 77 Blood Pressure 124/72 Height 163 cm Height 64 in Weight 56.1 kg Weight 123.679 lb BMI 21.11 What to do next You Need to Complete the Following KEL w/Reflex if POS, Blood, Routine collect, 08/10/24, Order for future visit, Lab Collect, Anxiety Poor circulation of extremity Wellness examination, Print Label By Order Location C-Reactive Protein High Sensitivity, Blood, Routine collect, 08/10/24, Order for future visit, Lab Collect, Anxiety Poor circulation of extremity Wellness examination, Print Label By Order Location CBC w/ Auto Diff, Blood, Routine collect, 08/10/24, Order for future visit, Lab Collect, Anxiety Poor circulation of extremity Wellness examination, Print Label By Order Location Comprehensive Metabolic Panel, Blood, Routine collect, 08/10/24, Order for future visit, Lab Collect, Anxiety Poor circulation of extremity Wellness examination, Print Label By Order Location ASIM and PE, Serum, Blood, Routine collect, 08/10/24, Order for future visit, Lab Collect, Anxiety Poor circulation of extremity Wellness examination, Print Label By Order Location Insulin Free and Total, Blood, Routine collect, 08/10/24, Order for future visit, Lab Collect, Anxiety Poor circulation of extremity Wellness examination, Print Label By Order Location Iron Level, Blood, Routine collect, 08/10/24, Order for future visit, Lab Collect, Anxiety Poor circulation of extremity Wellness examination, Print Label By Order Location Lyme Antibodies w/rflx to IgG/IgM, Blood, Routine collect, 08/10/24, Order for future visit, Lab Collect, Wellness examination Anxiety Poor circulation of extremity, Print Label By Order Location Rheumatoid Factor Quantitative, Blood, Routine collect, 08/10/24, Order for future visit, Lab Collect, Anxiety Poor circulation of extremity Wellness examination, Print Label By Order Location Sedimentation Rate Automated, Blood, Routine collect, 08/10/24, Order for future visit, Lab Collect, Anxiety Poor circulation of extremity Wellness examination, Print Label By Order Location TSH With T4fr Reflex, Blood, Routine collect, 08/10/24, Order for future visit, Lab Collect, Anxiety Poor circulation of extremity Wellness examination, Print Label By Order Location Vitamin B12 Level, Blood, Routine collect, 08/10/24, Order for future visit, Lab Collect, Anxiety Poor circulation of extremity Wellness examination, Print Label By Order Location Vitamin D 25 Hydroxy, Blood, Routine collect, 08/10/24, Order for future visit, Lab Collect, Anxiety Poor circulation of extremity Wellness examination, Print Label By Order Location MRI Brain w/ + w/o Contrast, 08/10/24, Routine, Order for Future Visit, Transport Mode: Ambulatory, Reason: Demyelinating disease, No, Yes, Headache disorder, pp_set_radiology_subspecialty, Corey Rowell Thyroid, 08/10/24, Routine, Order for future visit, Transport Mode: Ambulatory, Reason: Hypothyroidism, No, Thyroid pain, pp_set_radiology_subspecialty, Corey Rowell Someone Will Contact You Regarding These Appointments [facility] [place], Vascular Surgery, Dr Zazueta, 08/10/24 10:18:00 EDT, Poor circulation of extremity Medications What How Much When Why Instructions New alprazolam (Xanax 0.25 mg Tab) 1 Tablets By Mouth Every 8 hours Anxiety Refills: 1 Pickup at [facility] New diazepam (Valium 10 mg Tab) 1 Tablets By Mouth Once as needed for for anxiety Claustrophobia Pickup at [facility] Unchanged multivitamin (Multi Vitamin+) Pharmacy Information [facility]: [address], [place] [id number] [phone] Allergies No Known Medication Allergies Patient Survey You may receive a survey via text or e-mail asking about your office visit. Please share your experience with us by completing your survey. We appreciate your feedback and thank you for choosing us for your care. Patient Portal You may access all of your results and other medical record information on our secure patient portal. If you are not signed up for this yet, please contact Health Information Management at [phone] to get signed up today. Language Information Language assistance services are available as needed. FAMILY MEDICINE OFFICE/CLINI C NOTE Observed: 08/10/2024 8:30 AM Status: F Source: [facility] Family Medicine Office/Clini c Note Chief Complaint Establish care HPI Staff Establish Care: History: Any previous diagnosis: Hx of PCOS, Bartonella History of seeing any specialist: Endocrinology When was your last doctors visit: Couple weeks ago Last provider: ASHVIN in [place] Any recent labs: per Pt last month Health Maintenance UTD: Colonoscopy: DUE Mammogram: DUE Pelvic/Pap: DUE Acute: Current issues/complaints: Wants to address Ferritin level. Has been super tired and has lost a lot of hair. Did do thyroid labels which came back normal Pt states TSH is on the lower end and has declined in the last few years. History of Present Illness Urmila is a 43 year old female who presents to [facility]. She was seeing Fermín Louis at [facility] and she had labs done in July which I reviewed on her phone. She is seeing endocrine (Dr Krishna) who started her on control because of period abnormalities and PCOS(?). She is experiencing severe brain fog - difficulty with concentration, poor focus, poor organization, easily overwhelmed - she reports she had a sleep study and MSLT about 9 years ago and she was diag nosed with narcolepsy in [place]. She was started on ritalin, modafinil, and sunosi all of which she couldn;t tolerate and they didn't help with her daytime somnolence and increased anxiety. She has been to Dr Reyes in the past for + KEL and I reviewed an extensive list of previous lab work on her. She is experiencing extreme fatigue, muscle weakness, muscle cramping, migraines with aura, blurred vision, dizziness, ear pain and tinnits, bilateral LE vein changes/issues (she was suppose to see Dr Bynum in [place] but he was in an emergent surgery and the consult was cancelled. US BLE wnl). Family history: both parents are alive - father has HTN, OCD, anxiety, mom has high cholesterol. She has a brother who is alive and well. She had 2 children who are both healthy. Review of Systems PHQ Score Initial Depression Screen Score: 5 SCORE Detailed Depression Screen Score: 15 Total Depression Screen Score: 20 Physical Exam Vitals & Measurements HR: 77(Peripheral) BP: 124/72 SpO2: 100% HT: 163 cm HT: 64 in WT: 56.1 kg WT: 123.679 lb BMI: 21.11 General: alert, no acute distress ENMT: TM's clear, oral mucosa moist, no pharyngeal erythema or exudate Cardiovascular: regular rate and rhythm, normal peripheral perfusion Respiratory: Lungs CTA, respirations non labored Extremities: no deformity, no trauma Neurological: oriented x 4, LOC appropriate for age, CN II-XII intact, motor strength equal & normal bilaterally, sensation equal & normal bilaterally, speech normal Assessment/Plan 1. Anemia (D64.9: Anemia, unspecified) referral to hem/onc labs Ordered: [facility] [place] Referral 2. Anxiety (F41.9: Anxiety disorder, unspecified) refill xanax Ordered: alprazolam, 0.25 mg = 1 tab(s), Oral, q8hr, # 30 tab(s), Refills(s) 1, Pharmacy: [facility], 163, cm, 08/10/24 9:12:00 EDT, Height/Length Dosing, 56.1, kg, 08/10/24 9:12:00 EDT, Weight Dosing KEL w/Reflex if POS C-Reactive Protein High Sensitivity CBC w/ Auto Diff Comprehensive Metabolic Panel ASIM and PE, Serum Insulin Free and Total Iron Level Lyme Antibodies w/rflx to IgG/IgM Rheumatoid Factor Quantitative Sedimentation Rate Automated TSH With T4fr Reflex Vitamin B12 Level Vitamin D 25 Hydroxy 3. Claustrophobia (F40.240: Claustrophobia) valium 30 mins prior to mri Ordered: diazepam, 10 mg = 1 tab(s), Oral, Once, PRN for anxiety, # 1 tab(s), Refills(s) 0, Pharmacy: [facility], 163, cm, 08/10/24 9:12:00 EDT, Height/Length Dosing, 56.1, kg, 08/10/24 9:12:00 EDT, Weight Dosing 4. Poor circulation of extremity (R09.89: Other specified symptoms and signs involving the circulatory and respiratory systems) referral to Dr Zazueta Ordered: KEL w/Reflex if POS C-Reactive Protein High Sensitivity CBC w/ Auto Diff Comprehensive Metabolic Panel [facility] [place] Referral ASIM and PE, Serum Insulin Free and Total Iron Level Lyme Antibodies w/rflx to IgG/IgM Rheumatoid Factor Quantitative Sedimentation Rate Automated TSH With T4fr Reflex Vitamin B12 Level Vitamin D 25 Hydroxy 5. Headache (R51.9: Headache, unspecified) MRI brain Ordered: MRI Brain w/ + w/o Contrast Orders: US Thyroid Follow-up No qualifying data available Problem List/Past Medical History Ongoing Headache Historical No qualifying data Medications Multi Vitamin+ Valium 10 mg Tab, 10 mg= 1 tab(s), Oral, Once, PRN Xanax 0.25 mg Tab, 0.25 mg= 1 tab(s), Oral, q8hr, 1 refills Allergies No Known Medication Allergies Social History Alcohol Past. Beer, Wine, Liquor. 1-2 times per month., 08/05/2024 Substance Abuse Never., 08/05/2024 Tobacco Never (less than 100 in lifetime) Tobacco Use:. Household tobacco concerns: No., 08/10/2024 Family History Family history is negative Result Comment: Electronical ly Signed By: STANISLAV HALL, WHITNEY\.br\Date and Time Signed: 08/10/24 14:28 EDT TESTOSTERONE Collected: 7:11 AM Status: F Source: [facility] TYPE CODE TESTS RESULT OUT OF RANGE REFERENCE UNITS LAB TEST Testosterone 0.30 Normal 0.00-0.75 ng/mL Result Comment: PERFORMED BY : [facility] [place] [address] PATHOLOGIST PUTTY AND CAULKING SUPERVISOR MERYL MALAVE M.D. Performed By: #### DALIA, LH , 17OHPROG, DHEAS #### [facility] , #### IRMA, TEST, FSH, BMP #### [facility] [address] BASIC METABOLIC PANEL Collected: 08/04/2024 7:11 AM Status: F Source: [facility] TYPE CODE TESTS RESULT OUT OF RANGE REFERENCE UNITS LAB GLU Glucose 74 Normal 70-100 mg/dL Result Comment: Random Gluco se Reference Range is dependent on time and content of last meal. Glucose of more than 200 mg/dL in a nonstressed, ambulatory subject supports the diagnosis of Diabetes Mellitus. ADA recommended reference range LAB BUN Blood Urea Nitrogen 16 Normal 7-25 mg/dL LAB CREATT Creatinine 0.83 Normal 0.60-1.20 mg/dL LAB GFReNR Estimated GFR >60.0 LAB NA Sodium 138 Normal 136-145 mmol/L LAB K Potassium 4.1 Normal 3.5-5.1 mmol/L LAB CL Chloride 103 Normal 98-107 mmol/L LAB CO2 Carbon Dioxide 28.3 Normal 21.0-31.0 mmol/L LAB GAP Anion Gap 10.8 Normal 6.0-15.0 LAB CA Calcium 9.2 Normal 8.6-10.3 mg/dL Performed By: #### DALIA, LH , 17OHPROG, DHEAS #### [facility] , #### IRMA, TEST, FSH, BMP #### [address] FOLLICLE STIMULATING HORMONE Collected: 08/04/2024 7: 11 AM Status: F Source: [facility] TYPE CODE TESTS RESULT OUT OF RANGE REFERENCE UNITS LAB FSH Follicle Stimulating Hormone 0.9 m[iU]/mL Result Comment: FEMALE NORM ALS (PREMENOPAUSE) MID-FOLLICULAR PHASE: 3.9-8.8 mIU/mL MID-CYCLE PEAK: 4.5-22.5 mIU/mL MID-LUTEAL PHASE: 1.8-5.1 mIU/mL FEMALE NORMALS (POSTMENOPAUSE): 16.7-113.6 mIU/mL MALE NORMALS: 1.3-19.3 mIU/mL Performed By: #### DALIA, LH , 17OHPROG, DHEAS #### [facility] , #### IRMA, TEST, FSH, BMP #### [address] CORTISOL Collected: 7:11 AM Status: F Source: [facility] TYPE CODE TESTS RESULT OUT OF RANGE REFERENCE UNITS LAB IRMA Cortisol 20.3 ug/dL Result Comment: Reference ra nge: AM 6 - 24 ug/dl PM <10 ug/dl [facility], [facility] apprentice painter brush and method: NEIL UNICEL DXI, POLYCLONAL ANTIBODY CORTISOL ASSAY. PERFORMED BY: [place] [address] PATHOLOGIST PUTTY AND CAULKING SUPERVISOR MERYL MALAVE M.D. Performed By: #### DALIA, LH , 17OHPROG, DHEAS #### [facility] , #### IRMA, TEST, FSH, BMP #### [address] 17ALPHA HYDROXYPROGESTERONE Collected: 08/04/2024 7:1 1 AM Status: F Source: [facility] TYPE CODE TESTS RESULT OUT OF RANGE REFERENCE UNITS LAB 17OHPROG 17Alpha Hydroxyprogesterone 16 . ng/dL Result Comment: Adult Female Follicular 15 - 70 Luteal 35 - 290 This test was developed and its performance characteristics determined by [employer]. It has not been cleared or approved by the Food and Drug Administration. Performed at: [address] [id number] Skin Fitter: Maggie Quiroz MD, Phone: [phone] Performed By: #### DALIA, LH , 17OHPROG, DHEAS #### [facility] , #### IRMA, TEST, FSH, BMP #### [address] ANDROSTENEDIONE Collected: 08/04/2024 7:11 AM Status : F Source: [facility] TYPE CODE TESTS RESULT OUT OF RANGE REFERENCE UNITS LAB DALIA Androstenedione 93 41-262 ng/dL Result Comment: This test wa s developed and its performance characteristics determined by [employer] [facility]. It has not been cleared or approved by the Food and Drug Administration. Performed at: [facility] [address] [id number] Skin Fitter: Maggie Quiroz MD, Phone: [phone] Performed By: #### DALIA, LH , 17OHPROG, DHEAS #### [facility] , #### IRMA, TEST, FSH, BMP #### [facility] [address] [place] [address] LUTEINIZING HORMONE Collected: 08/04/2024 7:[address] atus: F Source: [facility] TYPE CODE TESTS RESULT OUT OF RANGE REFERENCE UNITS LAB LH Luteinizing Hormone 1.8 . m[iU]/mL Result Comment: Adult Female Range Follicular phase 2.4 - 12.6 Ovulation phase 14.0 - 95.6 Luteal phase 1.0 - 11.4 Postmenopausal 7.7 - 58.5 Performed at: [facility] [address] [id number] Skin Fitter: Osvaldo Jin PhD, Phone: [phone] Performed By: #### DALIA, LH , 17OHPROG, DHEAS #### [facility] , #### IRMA, TEST, FSH, BMP #### [address] DEHYDROEPIANDROSTERONE SULFATE Collected: 08/04/2024 7:11 AM Status: F Source: [facility] TYPE CODE TESTS RESULT OUT OF RANGE REFERENCE UNITS LAB DHEAS Dehydroepiandros ter one Sulfate 159.0 57.3-279.2 ug/dL Result Comment: PERFORMED BY : [place] [address] PATHOLOGIST PUTTY AND CAULKING SUPERVISOR MERYL MALAVE M.D. Performed By: #### DALIA, LH , 17OHPROG, DHEAS #### [facility] , #### IRMA, TEST, FSH, BMP #### [facility] [address] [place] [address] US VENOUS DUPLEX LE BI Observed: 025 2:10 PM Status: COMPLETED Source: [facility] Main [address] [address] Ultrasound Report Signed Patient: Urmila Rodriguez MR#: [id number] 97 : 1980 Acct:[id number] Age/Sex: 43 / F ADM Date: 07/11/24 Loc: Room: Type: [facility] Attending Dr: Rolanda Ortiz SOCK LINING STITCHER-C Ordering Provider: Rolanda Ortiz Date of Service: 07/11/24 US/US venous duplex LE BI: R25.2, M79.604, M79.605, I83.93, I83.893 Copies to: Rolanda Ortiz BILATERAL LOWER EXTREMITY VENOUS DUPLEX INDICATION: Symptomatic varicose veins. PROCEDURE: Color-flow duplex scanning is used to interrogate the deep venous system of the right and left lower extremities. The common femoral vein, femoral vein and popliteal vein show good compressibility with normal proximal and distal augmentation. The calf veins are compressible. US/US venous duplex LE BI IMPRESSION: NO EVIDENCE FOR DEEP VEIN THROMBOSIS OR PROXIMAL SUPERFICIAL THROMBOPHLEBITIS IN THE RIGHT OR LEFT LOWER EXTREMITY. No reflux was identified in the deep or superficial system, bilaterally at this time. Impression dictated by: Tano Love MD,[facility] 07/11/2024 2:10 PM Dictation Location: [place] [address] Tech: Mayra Sandoval Transcribed By: [facility] 07/11/24 1410 Dictated By: Tano Love MD 07/11/24 1410 Signed By: <Electronically signed by Tano Love MD in OV> 07/11/24 1410 TRIIODOTHYRONINE (T3) FREE Collected: 07/11/2024 8:48 AM Status: F Source: [facility] TYPE CODE TESTS RESULT OUT OF RANGE REFERENCE UNITS LAB T3F Triiodothyronine (T3) Free 3.42 Normal 2.50-3.90 pg/mL Result Comment: PERFORMED BY : [address] [address] PATHOLOGIST PUTTY AND CAULKING SUPERVISOR MERYL MALAVE M.D. Performed By: #### T3F #### [place] [id number] [facility] MICROALB CREAT RATIO,U Collected: 07/11/2024 8:48 AM Status: F Source: [facility] TYPE CODE TESTS RESULT OUT OF RANGE REFERENCE UNITS LAB UMAT Microalbumin , Urine <0.7 Normal 0.0-1.8 mg/dL LAB UCREA Creatinine, Urine (Random) 42.00 mg/dL Result Comment: No reference range established LAB MACREATRATIO Microalbumin /Creatinine Ratio Test not performed 0.0-30.0 Result Comment: PERFORMED BY : [place] [address] PATHOLOGIST PUTTY AND CAULKING SUPERVISOR MERYL MALAVE M.D. Performed By: #### KALA Burgess #### [place] [id number] [facility] A1C WITH ESTIMATED AVERAGE GLU Collected: 07/11/2024 8:48 AM Status: F Source: [facility] TYPE CODE TESTS RESULT OUT OF RANGE REFERENCE UNITS LAB .A1C Hemoglobin A1C 5.2 Normal 4.3-5.6 % Result Comment: Increased ri sk for diabetes: 5.7 - 6.4 diabetes: >6.4 glycemic control for adults with diabetes: <7.0 LAB eAG Estimated Average Glucose 103 mg/dL Result Comment: PERFORMED BY : [place] [address] PATHOLOGIST PUTTY AND CAULKING SUPERVISOR MERYL MALAVE M.D. Performed By: #### A1C WTH e A #### [place] [id number] [facility] COMPLETE BLOOD COUNT AUTO DIFF Collected: 07/11/2024 8:48 AM Status: F Source: F [facility] TYPE CODE TESTS RESULT OUT OF RANGE REFERENCE UNITS LAB WBC White Blood Count 5.4 Normal 3.8-11.6 10*3/uL LAB UNWBC Uncorrected WBC 5.4 Normal 3.8-11.6 10*3/uL LAB RBC Red Blood Count 4.38 Normal 3.60-5.00 10*6/u L LAB HGB Hemoglobin 12.9 Normal 11.8-15.4 g/dL LAB HCT Hematocrit 38.2 Normal 34.0-46.4 % LAB MCV Mean Corpuscular Volume 87.1 Normal 80-100 fL LAB MCH Mean Corpuscular Hemoglobin 29.4 Normal 24.7-34.3 pg LAB MCHC Mean Corpuscular HGB Conc 33.8 Normal 32.0-35.0 g/dL LAB RDW Red Cell Distribution Width 12.8 Normal 11.9-15.3 % LAB PLT Platelet Count 220 Normal 150-450 10*3/uL LAB MPV Mean Platelet Volume 8.2 Normal 6.3-10.7 fL LAB NE% Neutrophils % (Auto) 63.6 . % LAB LY% Lymphocytes % (Auto) 29.1 . % LAB MO% Monocytes % (Auto) 5.2 . % LAB EO% Eosinophils % (Auto) 1.9 . % LAB BA% Basophils % (Auto) 0.2 . % LAB NRBC% NRBC% 0.1 Normal 0-0.5 /100{WBC} LAB NE# Neutrophils # (Auto) 3.4 Normal 1.8-7.7 10*3/uL LAB LY# Lymphocytes # (Auto) 1.6 Normal 1.00-4.8 10*3/uL LAB MO# Monocytes # (Auto) 0.3 Normal 0.0-0.8 10*3/uL LAB EO# Eosinophils # (Auto) 0.1 Normal 0.0-0.45 10*3/uL LAB BA# Basophils # (Auto) 0.0 Normal 0.0-0.2 10*3/uL Result Comment: PERFORMED BY : [place] [address] PATHOLOGIST PUTTY AND CAULKING SUPERVISOR MERYL MALAVE M.D. Performed By: #### CBC #### [address] [address] [facility] CREATINE KINASE Collected: 07/11/2024 8:48 AM Status : F Source: [facility] TYPE CODE TESTS RESULT OUT OF RANGE REFERENCE UNITS LAB CK Creatine Kinase 57 Normal 30-223 U/L Result Comment: PERFORMED BY : [place] [address] PATHOLOGIST PUTTY AND CAULKING SUPERVISOR MERYL MALAVE M.D. Performed By: #### CK #### [address] [address] [facility] COMPREHENSIVE METABOLIC PANEL Collected: 07/11/2024 8 :48 AM Status: F Source: [facility] TYPE CODE TESTS RESULT OUT OF RANGE REFERENCE UNITS LAB GLU Glucose 79 Normal 70-100 mg/dL Result Comment: Random Gluco se Reference Range is dependent on time and content of last meal. Glucose of more than 200 mg/dL in a nonstressed, ambulatory subject supports the diagnosis of Diabetes Mellitus. ADA recommended reference range LAB BUN Blood Urea Nitrogen 13 Normal 7-25 mg/d L LAB CREATT Creatinine 0.76 Normal 0.60-1.20 mg/dL LAB GFReNR Estimated GFR >60.0 mL/Min LAB NA Sodium 136 Normal 136-145 mmol/L LAB K Potassium 4.0 Normal 3.5-5.1 mmol/L LAB CL Chloride 101 Normal 98-107 mmol/L LAB CO2 Carbon Dioxide 29.9 Normal 21.0-31.0 mmol/L LAB GAP Anion Gap 9.1 Normal 6.0-15.0 meq/L LAB CA Calcium 9.2 Normal 8.6-10.3 mg/dL LAB TP Total Protein 6.8 Normal 6.4-8.9 g/dL LAB ALB Albumin Level 4.3 Normal 3.5-5.7 g/dL LAB GLOB Globulin 2.5 g/dL LAB AGRATIO Albumin/Globulin Ratio 1.7 LAB BILIT Bilirubin,Total 0.5 Normal 0.3-1.0 mg/dL LAB AST Aspartate Amino Transferase 13 Normal 13-39 U/L LAB ALT Alanine Aminotransferase 10 Normal 7-52 U/L LAB ALP Alkaline Phosphatase 27 Low 34-104 U/L Performed By: #### [id number], FE and TIBC, MG, CMP, LIPID, TSH3, FOL, B12, T4F, CHRISTIE #### [facility] [address] [place] [id number] [facility] MAGNESIUM Collected: 8:48 AM Status: F Source: [facility] TYPE CODE TESTS RESULT OUT OF RANGE REFERENCE UNITS LAB MG Magnesium 2.1 Normal 1.9-2.7 mg/dL Performed By: #### [id number], FE and TIBC, MG, CMP, LIPID, TSH3, FOL, B12, T4F, CHRISTIE #### [facility] [address] [place] [id number] [facility] IRON AND TIBC PROFILE Collected: 07/11/2024 8:48 AM Status: F Source: [facility] TYPE CODE TESTS RESULT OUT OF RANGE REFERENCE UNITS LAB FE Iron 137 Normal 50-212 ug/dL LAB TIBCT Total Iron Binding Capacity 389 Normal 255-450 ug/dL LAB FESAT% % Iron Saturation 35.2 Normal 20-50 % LAB TRANS Transferrin 278 Normal 203-362 mg/dL Performed By: #### [id number], FE and TIBC, MG, CMP, LIPID, TSH3, FOL, B12, T4F, CHRISTIE #### [facility] [address] [place] [id number] [facility] FERRITIN Collected: 8:48 AM Status: F Source: [facility] TYPE CODE TESTS RESULT OUT OF RANGE REFERENCE UNITS LAB CHRISTIE Ferritin 18.0 Normal 11.0-306.8 ng/mL Performed By: #### [id number], FE and TIBC, MG, CMP, LIPID, TSH3, FOL, B12, T4F, CHRISTIE #### [facility] [address] [place] [id number] [facility] LIPID PANEL Collected: 07/11/2024 8:48 AM Status: F Source: [facility] TYPE CODE TESTS RESULT OUT OF RANGE REFERENCE UNITS LAB CHOL Cholesterol 209 High 140-200 mg/dL Result Comment: Chol less th an 200 mg/dl low risk Chol 201-239 mg/dl borderline risk Chol 240 mg/dl and greater high risk LAB HDL HDL Cholesterol 83 Normal 23-92 mg/dL Result Comment: HDL CHOL ATP -III CLASSIFICATION Cardiovascular Risk HDL > or equal to 60 mg/dL LOW HDL < 40 mg/dL HIGH LAB TRIG W REF Triglyceride w/Reflex 118 Normal 0-149 mg/dL Result Comment: TRIG ATP III CLASSIFICATION TRIG less than 150 mg/dL Normal TRIG 150-199 mg/dL Borderline high TRIG 200-500 mg/dL High TRIG greater than 500 mg/dL Very high Standard traceable to the Center for Disease Conrtrol and Prevention (CDC) test method. LAB LDLC LDL Cholesterol,Calc ulated 102 High 0-100 mg/dL Result Comment: LDL ATP III CLASSIFICATION LDL less than 100 mg/dL Optimal LDL 100-129 mg/dL Near or above optimal LDL 130-159 mg/dL Borderline high LDL 160-189 mg/dL High LDL greater than 189 mg/dL Very high LAB VLDL VLDL CHOLESTEROL 23 mg/dL LAB CHLHDL Chol/HDL Ratio 2.5 <5.0 Performed By: #### [id number], FE and TIBC, MG, CMP, LIPID, TSH3, FOL, B12, T4F, CHRISTIE #### [address] VITAMIN B12 Collected: 8:48 AM Status: F Source: [facility] TYPE CODE TESTS RESULT OUT OF RANGE REFERENCE UNITS LAB B12 Vitamin B12 423 Normal 180-914 pg/mL Performed By: #### [id number], FE and TIBC, MG, CMP, LIPID, TSH3, FOL, B12, T4F, CHRISTIE #### [address] FOLATE Collected: 8:48 AM Status: F Source: [facility] TYPE CODE TESTS RESULT OUT OF RANGE REFERENCE UNITS LAB FOL Folate 38.0 >5.9 ng/mL Result Comment: Folate refer ence range: >5.9 ng/ml The WHO technical consultation on folate and vitamin b12 deficiencies has determined that folate concentrations less than 4 ng/ml are considered deficient. Performed By: #### [id number], FE and TIBC, MG, CMP, LIPID, TSH3, FOL, B12, T4F, CHRISTIE #### [address] FREE T4 (FREE THYROXINE) Collected: 03/2024 8:48 AM Status: F Source: [facility] TYPE CODE TESTS RESULT OUT OF RANGE REFERENCE UNITS LAB T4F Free T4 (Free Thyroxine) 0.79 Normal 0.61-1.12 ng/dL Performed By: #### [id number], FE and TIBC, MG, CMP, LIPID, TSH3, FOL, B12, T4F, CHRISTIE #### [address] THYROID STIMULATING HORMONE Collected: 07/11/2024 8:4 8 AM Status: F Source: [facility] TYPE CODE TESTS RESULT OUT OF RANGE REFERENCE UNITS LAB TSH3 Thyroid Stimulating Hormone 0.77 Normal 0.45-5.33 u[iU]/mL Performed By: #### [id number], FE and TIBC, MG, CMP, LIPID, TSH3, FOL, B12, T4F, CHRISTIE #### [facility] [address] [id number] [facility] VITAMIN D 25 HYDROXY TOTAL Collected: 0 07/11/2024 8:48 AM Status: F Source: [facility] TYPE CODE TESTS RESULT OUT OF RANGE REFERENCE UNITS LAB [id number] Vitamin D 25 Hydroxy Total 49.6 Normal 30-100 ng/mL Result Comment: VITAMIN D ST ATUS 25(OH)VITAMIN D RANGE (ng/mL) Deficient <20 Insufficient 20 to <30 Sufficient 30 to 100 Reference: Jeison MF,Demetrio NC, Nika FORD, et al. Evaluation,treatment, and prevention of vitamin D deficiency; an Endocrine Society clinical practice guideline. JCEM. 2010; 96(7):1911-30. PERFORMED BY: [place] [address] PATHOLOGIST PUTTY AND CAULKING SUPERVISOR MERYL MALAVE M.D. Performed By: #### [id number], FE and TIBC, MG, CMP, LIPID, TSH3, FOL, B12, T4F, CHRISTIE #### [place] [id number] [facility] ZINC, PLASMA Collected: 8:48 AM Status: F Source: [facility] TYPE CODE TESTS RESULT OUT OF RANGE REFERENCE UNITS LAB ZINC,PL Zinc, Plasma 77 44-115 ug/dL Result Comment: This test wa s developed and its performance characteristics determined by [facility]. It has not been cleared or approved by the Food and Drug Administration. Detection Limit = 5 Performed at: [address] [id number] Skin Fitter: Maggie Quiroz MD, Phone: [phone] Performed By: #### ZINC,PL, TPO, THYREAB #### [facility] , THYROID PEROXIDASE ANTIBODIES Collected: 07/11/2024 8 :48 AM Status: F Source: [facility] TYPE CODE TESTS RESULT OUT OF RANGE REFERENCE UNITS LAB TPO Thyroid Peroxidase Antibodies 11 0-34 [IU]/mL Result Comment: Performed at : - [facility] [id number] Skin Fitter: Osvaldo Jin PhD, Phone: [phone] Performed By: #### ZINC,PL, TPO, THYREAB #### [facility] , THYROTROPIN RECEPTOR ANTIBODY Collected: 07/11/2024 8 :48 AM Status: F Source: [facility] TYPE CODE TESTS RESULT OUT OF RANGE REFERENCE UNITS LAB THYREAB Thyrotropin Receptor Antibody <1.10 0.00-1.75 Result Comment: Performed at : - [facility] [id number] Skin Fitter: Maggie Quiroz MD, Phone: [phone] PERFORMED BY: [place] [address] PATHOLOGIST PUTTY AND CAULKING SUPERVISOR MERYL MALAVE M.D. Performed By: #### ZINC,PL, TPO, THYREAB #### [facility] , ECG 12 LEAD ECG Observed: 07/11/2024 8:34 AM Status: COMPLETED Source: [facility] [place] [address] Electrocardiograph Report Signed Patient: Urmila Rodriguez MR#: [id number] 97 : 1980 Acct:[id number] Age/Sex: 43 / F ADM Date: 07/11/24 Loc: Room: Type: [facility] Attending Dr: Rolanda Ortiz [employer]ING STITCHER-C Ordering Provider: Rolanda Ortiz Date of Service: 07/11/2404/05/838 ECG/ECG 12 lead ECG: r00.2 Copies to: Test Reason : Blood Pressure : */* mmHG Vent. Rate : 77 BPM Atrial Rate : 77 BPM P-R Int : 144 ms QRS Dur : 82 ms QT Int : 370 ms P-R-T Axes : 66 68 55 degrees QTcB Int : 418 ms Normal sinus rhythm Borderline ECG When compared with ECG of 13-Jan-2020 09:33, No significant change was found Confirmed by Julio C De Los Santos ([id number]) on 07/11/2024 8:57:34 AM Referred By: Electronically Signed By: Julio C De LosS antos Transcribed By: MUS Signed By Julio C De Los aSntos MD 07/11/24 0857 PROGRESS Observed: 06/27/2024 12:07 PM Status: COMPLETED Source: [facility] HNO ID: [id number] Author: ?, ?, ? Service: ? Author Type: ? Type: Progress Notes Filed: 06/27/2024 12:08 Note Text: Called patient left a voicemail this is our second time trying to reach the patient. CNPN Observed: 06/23/2024 12:00 AM Status: COMPLETED Source: [facility] Telephone (AMDERM) URMILA RODRIGUEZ ([id number]) 1980 F Date Time Provider Department 06/23/24 HARMNOY DUTTA During your visit today, we recorded the following information about you: Gina Avery 06/23/2024 3:34 PM Signed Please call to schedule in person follow up visit in 6 months Called patient left a voicemail as well as a my chart message. Ana Patel 06/30/2024 1:15 PM Addendum Called and lvm for pt to schedule 6 [address] follow up [address] Dutta. Final attempt. Allergies As of Date: 06/23/2024 (No Known Allergies) Date Reviewed: 06/08/2024 Reviewed by: Harmony Dutta MD - Fully Assessed Prescriptions as of 06/30/2024 - minoxidil (LONITEN) 2.5 mg tablet Take 1/2 a pill once daily for hair loss - spironolactone (ALDACTONE) 50 mg tablet Start once daily and increase to twice daily after 2 weeks if tolerating well. - acetaminophen (TYLENOL 8 HOUR ORAL) Take by mouth. - cholecalciferol, vitamin D3, (VITAMIN D3 ORAL) Take by mouth once daily. Problem List As Of Date 06/23/2024 Noted Resolved Echogenic focus of heart of fetus affecting ant*01/01/2015 Vitamin B12 deficiency [E53.8] 2023 Gastroesophageal reflux disease [K21.9] 2023 Encounter Status:Closed by GINA AVERY on 06/24/24 PROGRESS Observed: 06/13/2024 1:10 PM Status: COMPLETED Source: [facility] HNO ID: [id number] Author: ?, ?, ? Service: ? Author Type: ? Type: Progress Notes Filed: 06/13/2024 13:11 Note Text: Summary: 1st attempt LVM w/callback number for pt to schedule 6 month in office visit w/ per provider request [facility] 06/13/24 PROGRESS Observed: 06/08/2024 7:11 AM Status: COMPLETED Source: [facility] HNO ID: [id number] Author: HARMONY DUTTA MD Service: ? Author Type: Physician Type: Progress Notes Filed: 06/08/2024 12:03 Note Text: This visit was conducted as a virtual visit. I have communicated my name and active licensure. The patient's identity and physical location were verified at the time of this visit. Either the patient or their legal client relations representative has been informed of the risks and benefits of -- and alternatives to -- treatment through a remote evaluation and consents to proceed with the evaluation remotely. CC: Patient presents with: Follow Up HPI: 43 year old female patient here for: Hair loss Unable to tolerate spironolactone 50mg once daily due to side effects Here to discuss alternative options Feels like hair density continues to worsen Following with endrocrinology for elevated testosterone Has dry scalp as well Has a history of scalp psoriasis Derm History: Denies personal history of skin cancer Allergies: ALLERGIES No Known Allergies Medications: Current Outpatient Medications Medication Sig Dispense Refill minoxidil (LONITEN) 2.5 mg tablet Take 1/2 a pill once daily for hair loss 45 tablet 1 spironolactone (ALDACTONE) 50 mg tablet Start once daily and increase to twice daily after 2 weeks if tolerating well. 180 tablet 1 acetaminophen (TYLENOL 8 HOUR ORAL) Take by mouth. cholecalciferol, vitamin D3, (VITAMIN D3 ORAL) Take by mouth once daily. No current facility-administered medications for this visit. PHYSICAL EXAM: Skin examination deferred today, unable to examine scalp on virtual visit ASSESSMENT/PLAN: Androgenetic alopecia Elevated testosterone level Low ferritin Continue iron supplement Continue management as per endocrinology Discussed topical minoxidil, LDOM and r/b/a of each Patient opts to start LDOM - minoxidil (LONITEN) 2.5 mg tablet; Take 1/2 a pill once daily for hair loss Dispense: 45 tablet; Refill: 1 Discussed side effects including hypertrichosis, edema, lightheadedness, tachycardia, medication interactions Scalp pruritus Unable to examine today on virtual visit Plan to examine at follow up Recommend trial of cerave anti dandruff shampoo and conditioner Return in 4-6 months, sooner as needed MD CRAIG Field Observed: 05/16/2024 12:00 AM Status: COMPLETED Source: [facility] Telephone ([place]) URMILA RODRIGUEZ ([id number]) 1980 F Date Time Provider Department 05/16/24 HARMONY DUTTA During your visit today, we recorded the following information about you: Anali Sahu RN 05/16/2024 4:35 PM Signed Pt is identified by name and birthdate: Yes Patient calls states she stopped medication approximately 10 days ago d/t SE: increased drinking, frequency, Heart Palpitations AND Dizziness. States after she stopped medication symptoms improved. Would like to start a different medication spironolactone (ALDACTONE) 50 mg tablet Start once daily and increase to twice daily after 2 weeks if tolerating well. Harmony Dutta MD 05/17/2024 8:18 AM Signed Noted Remain of spironolactone Can discuss alternative options at next visit Please move up visit if patient desires OK to have visit be virtual as well Gina Avery 05/17/2024 9:44 AM Signed Called patient left a voice mail as well as a my chart message Gina Avery May 17, 2024 9:43 AM Angel Schultz 05/19/2024 10:59 AM Signed Called patient and LVM about below appointment. Will send MyChart. Angel Schultz May 19, 2024 10:57 AM Anali Sahu RN 05/20/2024 7:36 AM Signed 4 attempts to try and reach patient Please Mail Unable to Reach you Letter Sangita Carbajal 06/01/2024 4:13 PM Signed Patient states she was on vacation and asking for virtual visit to discuss changing medication. Please advise at [phone] Radha Wong LPN 06/01/2024 4:45 PM Signed Spoke to patient. She is scheduled for a sooner virtual visit to discuss alternate medications on 06/08/24 at 7 am. Allergies As of Date: 05/16/2024 (No Known Allergies) Date Reviewed: 03/29/2024 Reviewed by: Ani Whitman MA - Fully Assessed Reason for Visit: Medication Problem [65] Prescriptions as of 06/01/2024 - spironolactone (ALDACTONE) 50 mg tablet Start once daily and increase to twice daily after 2 weeks if tolerating well. - acetaminophen (TYLENOL 8 HOUR ORAL) Take by mouth. - cholecalciferol, vitamin D3, (VITAMIN D3 ORAL) Take by mouth once daily. Problem List As Of Date 05/16/2024 Noted Resolved Echogenic focus of heart of fetus affecting ant*01/01/2015 Vitamin B12 deficiency [E53.8] 2023 Gastroesophageal reflux disease [K21.9] 2023 Encounter Status:Closed by ANALI SAHU on 05/20/24 DARCY Observed: 03/29/2024 6:40 AM Status: COMPLETED Source: [facility] Office Visit (AMDERM) URMILA RODRIGUEZ ([id number]) 1980 F Date Time Provider Department 03/29/24 6:40 AM HARMONY DUTTA AMDERM During your visit today, we recorded the following information about you: Harmony Dutta MD 03/29/2024 3:48 PM Signed CC: Patient presents with: New Patient Hair/Scalp Problem HPI: 43 year old female patient here for: Hair loss Ongoing about 2 years ago; however last 8 months worsening Admits to dry scalp, getting weird sensations Has a history of scalp psoriasis Washing with organic Avelon shampoo Seen by outside endo ([facility]) Viewable in care everywhere Diagnosed with likely PCOS - started on OCP x 1 month but deferred Spironolactone Abnormal testosterone 88 (4-50), DHEA 248 ( 31-701), progesterone 0.5, prolactin normal, LH 26 suspicious for PCOS or early menopause, estrogen 745 Derm History: Denies personal history of skin cancer Allergies: ALLERGIES No Known Allergies Medications: Current Outpatient Medications Medication Sig Dispense Refill acetaminophen (TYLENOL 8 HOUR ORAL) Take by mouth. cholecalciferol, vitamin D3, (VITAMIN D3 ORAL) Take by mouth once daily. No current facility-administered medications for this visit. PHYSICAL EXAM: Skin examination including scalp Diffuse mild thinning and moderate thinning and miniaturization of temporal scalp Negative hair pull test Reviewed CBC, ferritin, vit D, iron and TIBC, testosterone and DHEAS from 01/2024 - testosterone elevated and ferritin low ASSESSMENT/PLAN: 1. Androgenetic alopecia (Primary) 2. Elevated testosterone level Low ferritin Continue iron supplement Continue OCP as per endocrinology Discussed topical minoxidil, LDOM and spironolactone and r/b/a of each Patient opts to start with spironolactone - spironolactone (ALDACTONE) 50 mg tablet; Start once daily and increase to twice daily after 2 weeks if tolerating well. Dispense: 180 tablet; Refill: 1 -no history of kidney disease or high blood pressure, no medication interactions, defer baseline and monitoring labs -discussed off-label use -discussed risks (electrolyte imbalances, increased urination, dizziness, headaches, feminization of male fetus, breast tenderness, menstrual irregularities) -she understands that she MUST NOT get while on and at least 1 ovulatory cycle after treatment Return in 6 months, sooner as needed The documentation for this note was completed by Ani Whitman MA acting as scribe for Harmony Dutta MD. March 29, 2024 6:31 AM. I agree with the Chief Complaint, ROS, and Past Histories independently gathered by the clinical help desk support specialist and the remaining scribed note accurately describes my personal service to and examination of the patient. Harmony Dutta MD Allergies As of Date: 03/29/2024 (No Known Allergies) Date Reviewed: 03/29/2024 Reviewed by: Ani Whitman MA - Fully Assessed Reason for Visit: New Patient [172] Hair/Scalp Problem [51] Primary Visit Diagnosis:Androgenetic alopecia [L64.9] Other Visit Diagnosis:Elevated testosterone level [R79.89] Order(s):spironolactone (ALDACTONE) 50 mg tabletStart once daily and increase to twice daily after 2 weeks if tolerating well.Disp: 180 tabletRfl: 1 Prescriptions as of 03/29/2024 - spironolactone (ALDACTONE) 50 mg tablet Start once daily and increase to twice daily after 2 weeks if tolerating well. - acetaminophen (TYLENOL 8 HOUR ORAL) Take by mouth. - cholecalciferol, vitamin D3, (VITAMIN D3 ORAL) Take by mouth once daily. Problem List As Of Date 03/29/2024 Noted Resolved Echogenic focus of heart of fetus affecting ant*01/01/2015 Vitamin B12 deficiency [E53.8] 2023 Gastroesophageal reflux disease [K21.9] 2023 Prescriptions ordered this encounter Disp Refills Start End SPIRONOLACTONE 50 MG TABLET 180 * 1 03/29/2024 Sig: Start once daily and increase to twice daily after 2 weeks if tolerating well. Encounter Status:Closed by HARMONY DUTTA on 03/29/24 PROGRESS Observed: 03/29/2024 6:31 AM Status: COMPLETED Source: [facility] HNO ID: [id number] Author: HARMONY DUTTA MD Service: ? Author Type: Physician Type: Progress Notes Filed: 03/29/2024 15:48 Note Text: CC: Patient presents with: New Patient Hair/Scalp Problem HPI: 43 year old female patient here for: Hair loss Ongoing about 2 years ago; however last 8 months worsening Admits to dry scalp, getting weird sensations Has a history of scalp psoriasis Washing with organic Avelon shampoo Seen by outside endo ([facility]) Viewable in care everywhere Diagnosed with likely PCOS - started on OCP x 1 month but deferred Spironolactone Abnormal testosterone 88 (4-50), DHEA 248 ( 31-701), progesterone 0.5, prolactin normal, LH 26 suspicious for PCOS or early menopause, estrogen 745 Derm History: Denies personal history of skin cancer Allergies: ALLERGIES No Known Allergies Medications: Current Outpatient Medications Medication Sig Dispense Refill acetaminophen (TYLENOL 8 HOUR ORAL) Take by mouth. cholecalciferol, vitamin D3, (VITAMIN D3 ORAL) Take by mouth once daily. No current facility-administered medications for this visit. PHYSICAL EXAM: Skin examination including scalp Diffuse mild thinning and moderate thinning and miniaturization of temporal scalp Negative hair pull test Reviewed CBC, ferritin, vit D, iron and TIBC, testosterone and DHEAS from 01/2024 - testosterone elevated and ferritin low ASSESSMENT/PLAN: 1. Androgenetic alopecia (Primary) 2. Elevated testosterone level Low ferritin Continue iron supplement Continue OCP as per endocrinology Discussed topical minoxidil, LDOM and spironolactone and r/b/a of each Patient opts to start with spironolactone - spironolactone (ALDACTONE) 50 mg tablet; Start once daily and increase to twice daily after 2 weeks if tolerating well. Dispense: 180 tablet; Refill: 1 -no history of kidney disease or high blood pressure, no medication interactions, defer baseline and monitoring labs -discussed off-label use -discussed risks (electrolyte imbalances, increased urination, dizziness, headaches, feminization of male fetus, breast tenderness, menstrual irregularities) -she understands that she MUST NOT get while on and at least 1 ovulatory cycle after treatment Return in 6 months, sooner as needed The documentation for this note was completed by Ani Whitman MA acting as scribe for Harmony Dutta MD. March 29, 2024 6:31 AM. I agree with the Chief Complaint, ROS, and Past Histories independently gathered by the clinical help desk support specialist and the remaining scribed note accurately describes my personal service to and examination of the patient. Harmony Dutta MD COMPREHENSIVE METABOLIC PANEL Collected: 02/01/2024 1 0:57 AM Status: F Source: [facility] TYPE CODE TESTS RESULT OUT OF RANGE REFERENCE UNITS LAB GLU Glucose 77 Normal 70-100 mg/dL Result Comment: Random Gluco se Reference Range is dependent on time and content of last meal. Glucose of more than 200 mg/dL in a nonstressed, ambulatory subject supports the diagnosis of Diabetes Mellitus. ADA recommended reference range LAB BUN Blood Urea Nitrogen 14 Normal 7-25 mg/d L LAB CREATT Creatinine 0.70 Normal 0.60-1.20 mg/dL LAB GFReNR Estimated GFR >60.0 mL/Min LAB NA Sodium 138 Normal 136-145 mmol/L LAB K Potassium 3.5 Normal 3.5-5.1 mmol/L LAB CL Chloride 103 Normal 98-107 mmol/L LAB CO2 Carbon Dioxide 27.5 Normal 21.0-31.0 mmol/L LAB GAP Anion Gap 11.0 Normal 6.0-15.0 meq/L LAB CA Calcium 9.4 Normal 8.6-10.3 mg/dL LAB TP Total Protein 7.0 Normal 6.4-8.9 g/dL LAB ALB Albumin Level 4.6 Normal 3.5-5.7 g/dL LAB GLOB Globulin 2.4 g/dL LAB AGRATIO Albumin/Globulin Ratio 1.9 LAB BILIT Bilirubin,Total 0.8 Normal 0.3-1.0 mg/dL LAB AST Aspartate Amino Transferase 16 Normal 13-39 U/L LAB ALT Alanine Aminotransferase 16 Normal 7-52 U/L LAB ALP Alkaline Phosphatase 31 Low 34-104 U/L Performed By: #### PRL, VITD 25OH, CMP, CHRISTIE, FE and TIBC, B12 #### [facility] [address] IRON AND TIBC PROFILE Collected: 02/01/2024 10:57 AM Status: F Source: [facility] TYPE CODE TESTS RESULT OUT OF RANGE REFERENCE UNITS LAB FE Iron 106 Normal 50-212 ug/dL LAB TIBCT Total Iron Binding Capacity 339 Normal 255-450 ug/dL LAB FESAT% % Iron Saturation 31.3 Normal 20-50 % LAB TRANS Transferrin 242 Normal 203-362 mg/dL Performed By: #### PRL, VITD 25OH, CMP, CHRISTIE, FE and TIBC, B12 #### [address] FERRITIN Collected: 10:57 AM Status: F Source: [facility] TYPE CODE TESTS RESULT OUT OF RANGE REFERENCE UNITS LAB CHRISTIE Ferritin 10.0 Low 11.0-306.8 ng/mL Performed By: #### PRL, VITD 25OH, CMP, CHRISTIE, FE and TIBC, B12 #### [address] VITAMIN B12 Collected: 10:57 AM Status: F Source: [facility] TYPE CODE TESTS RESULT OUT OF RANGE REFERENCE UNITS LAB B12 Vitamin B12 584 Normal 180-914 pg/mL Performed By: #### PRL, VITD 25OH, CMP, CHRISTIE, FE and TIBC, B12 #### [facility] [address] [place] [address] PROLACTIN Collected: 10:57 AM Status: F Source: [facility] TYPE CODE TESTS RESULT OUT OF RANGE REFERENCE UNITS LAB PRL Prolactin 8.17 Normal 3.34-26.72 ng/mL Performed By: #### PRL, VITD 25OH, CMP, CHRISTIE, FE and TIBC, B12 #### [address] VITAMIN D 25 HYDROXY TOTAL Collected: 1 04/03/2023 10:57 AM Status: F Source: [facility] TYPE CODE TESTS RESULT OUT OF RANGE REFERENCE UNITS LAB [id number] Vitamin D 25 Hydroxy Total 48.1 Normal 30-100 ng/mL Result Comment: VITAMIN D ST ATUS 25(OH)VITAMIN D RANGE (ng/mL) Deficient <20 Insufficient 20 to <30 Sufficient 30 to 100 Reference: Jeison MF,Demetrio NC, Nika FORD, et al. Evaluation,treatment, and prevention of vitamin D deficiency; an Endocrine Society clinical practice guideline. JCEM. 2010; 96(7):1911-30. PERFORMED BY: [place] [address] PATHOLOGIST PUTTY AND CAULKING SUPERVISOR BELLA ADAMS M.D. Performed By: #### PRL, VITD 25OH, CMP, CHRISTIE, FE and TIBC, B12 #### [facility] [address] [place] [address] TESTOSTERONE FREE AND TOTAL Collected: 02/01/2024 10:57 AM Status: F Source: [facility] TYPE CODE TESTS RESULT OUT OF RANGE REFERENCE UNITS LAB TEST(F T) Testosterone , 88 High 4-50 ng/dL LAB TESTF Testosterone ,Free 1.2 0.0-4.2 pg/mL Result Comment: Performed at : [facility] [id number] Skin Fitter: Osvaldo Jin PhD, Phone: [phone] Performed at: [address] [id number] Skin Fitter: Maggie Quiroz MD, Phone: [phone] Performed By: #### DHEA, PRO G, TEST F + T, LH, EST #### [facility] , ESTROGENS, TOTAL Collected: 10:57 AM Status: F Source: [facility] TYPE CODE TESTS RESULT OUT OF RANGE REFERENCE UNITS LAB EST Estrogens, Total 745 . pg/mL Result Comment: Prepubertal < 40 Female Cycle: 1-10 Days 16 - 328 11-20 Days 34 - 501 21-30 Days 48 - 350 Post-Menopausal 40 - 244 Performed at: [address] [id number] Skin Fitter: Maggie Quiroz MD, Phone: [phone] Performed By: #### DHEA, PRO G, TEST F + T, LH, EST #### [facility] , LUTEINIZING HORMONE Collected: 02/01/20 10:57 AM Status: F Source: [facility] TYPE CODE TESTS RESULT OUT OF RANGE REFERENCE UNITS LAB LH Luteinizing Hormone 26.7 . m[iU]/mL Result Comment: Adult Female Range Follicular phase 2.4 - 12.6 Ovulation phase 14.0 - 95.6 Luteal phase 1.0 - 11.4 Postmenopausal 7.7 - 58.5 Performed By: #### DHEA, PRO G, TEST F + T, LH, EST #### [facility] , PROGESTERONE Collected: 10:57 AM Status: F Source: [facility] TYPE CODE TESTS RESULT OUT OF RANGE REFERENCE UNITS LAB PROG Progesterone 0.5 . ng/mL Result Comment: Follicular p hase 0.1 - 0.9 Luteal phase 1.8 - 23.9 Ovulation phase 0.1 - 12.0 First trimester 11.0 - 44.3 Second trimester 25.4 - 83.3 Third trimester 58.7 - 214.0 Postmenopausal 0.0 - 0.1 Performed at: [address] [id number] Skin Fitter: Osvaldo Jin PhD, Phone: [phone] Performed By: #### DHEA, PRO G, TEST F + T, LH, EST #### [facility] , DEHYDROEPANDROSTERONE Collected: 2023 10:57 AM Status: F Source: [facility] TYPE CODE TESTS RESULT OUT OF RANGE REFERENCE UNITS LAB DHEA DHEA 248 31-701 ng/dL Result Comment: This test wa s developed and its performance characteristics determined by [employer]. It has not been cleared or approved by the Food and Drug Administration. Performed at: [address] [id number] Skin Fitter: Maggie Quiroz MD, Phone: [phone] PERFORMED BY: [place] [address] [place] [address] PATHOLOGIST PUTTY AND CAULKING SUPERVISOR BELLA ADAMS M.D. Performed By: #### DHEA, PRO G, TEST F + T, LH, EST #### [facility] , COMPLETE BLOOD COUNT AUTO DIFF Collected: 02/01/2024 10:57 AM Status: F Source: [facility] TYPE CODE TESTS RESULT OUT OF RANGE REFERENCE UNITS LAB WBC White Blood Count 5.8 Normal 3.8-11.6 10*3/uL LAB UNWBC Uncorrected WBC 5.8 Normal 3.8-11.6 10*3/uL LAB RBC Red Blood Count 4.34 Normal 3.60-5.00 10*6/u L LAB HGB Hemoglobin 12.7 Normal 11.8-15.4 g/dL LAB HCT Hematocrit 37.8 Normal 34.0-46.4 % LAB MCV Mean Corpuscular Volume 87.1 Normal 80-100 fL LAB MCH Mean Corpuscular Hemoglobin 29.2 Normal 24.7-34.3 pg LAB MCHC Mean Corpuscular HGB Conc 33.6 Normal 32.0-35.0 g/dL LAB RDW Red Cell Distribution Width 12.3 Normal 11.9-15.3 % LAB PLT Platelet Count 199 Normal 150-450 10*3/uL LAB MPV Mean Platelet Volume 8.6 Normal 6.3-10.7 fL LAB NE% Neutrophils % (Auto) 67.3 . % LAB LY% Lymphocytes % (Auto) 25.1 . % LAB MO% Monocytes % (Auto) 5.4 . % LAB EO% Eosinophils % (Auto) 1.9 . % LAB BA% Basophils % (Auto) 0.3 . % LAB NRBC% NRBC% 0.1 Normal 0-0.5 /100{WBC} LAB NE# Neutrophils # (Auto) 3.9 Normal 1.8-7.7 10*3/uL LAB LY# Lymphocytes # (Auto) 1.4 Normal 1.00-4.8 10*3/uL LAB MO# Monocytes # (Auto) 0.3 Normal 0.0-0.8 10*3/uL LAB EO# Eosinophils # (Auto) 0.1 Normal 0.0-0.45 10*3/uL LAB BA# Basophils # (Auto) 0.0 Normal 0.0-0.2 10*3/uL Result Comment: PERFORMED BY : [place] [address] PATHOLOGIST PUTTY AND CAULKING SUPERVISOR BELLA ADAMS M.D. Performed By: #### CBC #### [place] [id number] [facility] PROGRESS Observed: 11/25/2023 11:59 AM Status: COMPLETED Source: [facility] HNO ID: [id number] Author: SUHAIL LEE MD, PhD Service: ? Author Type: Physician Type: Progress Notes Filed: 12/01/2023 13:34 Note Text: 11:59 AM VIRTUAL VISIT FOLLOW UP I have communicated my name and active licensure. The patient's identity and physical location were verified at the time of this visit. Either the patient or their legal client relations representative has been informed of the risks and benefits of -- and alternatives to -- treatment through a remote evaluation and consents to proceed with the evaluation remotely. I had a virtual visit with Ms. Rodriguez today for follow up of cirrhosis. Last seen by me 09.09.2023. I have personally interviewed and examined this patient and have confirmed or modified the review of systems both general and GI specific in the nursing notes. UPDATED HISTORY: since her last visit the patient has had blood work to evaluate for autoimmune cause for her low B12 levels.All were normal/negative. Today she reports that she has pain below the belly button. Occurs after eating but not every day, Stool is inconsistent Has not had an appendectomy. Gets SOB with physical activity, Not diagnosed with asthma. Current Outpatient Medications Medication Sig Dispense Refill acetaminophen (TYLENOL 8 HOUR ORAL) Take by mouth. cholecalciferol, vitamin D3, (VITAMIN D3 ORAL) Take by mouth once daily. No current facility-administered medications for this visit. ALLERGIES No Known Allergies REVIEW OF SYSTEMS: PAIN ASSESSMENT: CURRENTLY HAVING PAIN; see HPI GENERAL: No weight loss, malaise or fevers RESPIRATORY: Negative for cough, hemoptysis, wheezing, COPD, dyspnea or shortness of breath CARDIOVASCULAR: Negative for chest pain, leg swelling, hypertension, CHF or palpitations PHYSICAL FINDINGS OF NOTE: General - Normal, healthy, cooperative, in no acute distress Able to interact verbally by video conference Psych - ORIENTATION: normal to time place, person and situation Mood/Affect: AFFECT AND MOOD: Normal REVIEWED ITEMS Gastrin 25.5 Antiparietal cell ab negative Methylmalonic acid 0.1 Intrinsic factor negative IMPRESSION/PLAN 43 yo female with a low vit B12 level. Does not appear to be gastric in origin. Will obtain CTe to evaluate the ileum. If positive may need colon with TI intubation. Discussed with the patient - she is agreeable. Follow-up to be decided after procedures completed. Suhail Lee MD, PhD I spent a total of 20 minutes on the date of the service which included preparing to see the patient, [id number] patient care, completing clinical documentation, obtaining and/or reviewing separately obtained history, and ordering medications, tests, or procedures. ALLERGIES DATE TYPE / CODE NAME / CODE REACTION SEVERITY SOURCE 08/26/2024 Drug Allergy/5971037 02(SNOMED CT) No Known Allergies/[id number]( RXNORM) Unknown [facility] /277522054(SN OMED CT) No Known Medication Allergies [facility] Drug Class/493902684 (SNOMED CT) NO KNOWN ALLERGIES [facility] ENCOUNTERS ADMIT/DISCHARGE ACCOUNT NUMBER ADMITTING ENCOUNTER CLASS LOCATION SOURCE 10/11/2024/10/12/19 [id number] Ambulatory Building:[facility] S [facility] 09/27/2024/09/28/19 [id number] Ambulatory [facility] g:FM [facility] 09/22/2024/09/23/19 [id number] [facility][id number] [facility] 09/22/2024/09/23/19 [id number] [facility]LARA [facility] 08/31/2024/09/01/19 [id number] Ambulatory FTBuilding :FT ONCRoom: CD:[id number] [facility] 08/26/2024/08/27/19 [id number] [facility]24 [id number] ACOSTA VARELA Ambulatory FTMCBuilding :FT LAB [facility] 08/22/2024/08/23/19 [id number] ACOSTA VARELA Ambulatory FTMCBuilding :FT LAB [facility] 08/18/2024/08/19/19 [id number] ACOSTA VARELA Ambulatory FTMCBuilding :FT [facility] 08/10/2024/08/11/19 [id number] Ambulatory [facility] [place]FM [facility] 08/04/2024 [id number] Ambulatory [facility] [place]:FM [facility] 08/04/2024/08/05/19 [id number] [facility] 07/25/2024/07/26/19 [id number] Ambulatory Building:NOM S [facility] 07/11/2024/07/12/19 25 [id number] [facility]anda Ortiz [facility] 06/28/2024/06/29/19 25 [id number] Ambulatory Building:NOM S SH AUD [facility] 06/15/2024/06/16/19 25 [id number] Ambulatory Building:NOM S [facility] FM [facility] 06/08/2024/06/09/19 25 [id number] [facility] 03/31/2024/03/31/19 25 [id number] Ambulatory Building:NOM S HSM FM [facility] 03/29/2024/03/29/19 25 [id number] [facility] 02/24/2024/02/23/19 25 [id number] Ambulatory Building:NOM S SH ENDO [facility] 02/01/2024/02/01/20 24 [id number] Kilo Frankel [facility] 01/13/2024/12/04 [id number] Ambulatory Building:NOM S [facility] EPIC 11/25/2023/11/25/19 [id number] [facility][id number] [facility] PAYERS ENCOUNTER GUARANTOR PAYER SUBSCRIBER SOURCE 10/11/2024 URMILA ZAMORAMAIKB: [id number] [place] [address]Jnf: (HP) Primary Insurance:MEDICAL MUTUALPolicy Number: [id number] Date:2023-11-10 URMILA NOAHMAIKB: [id number] [place] [address] [facility] 09/27/2024 URMILA Chanel HEIKEB: [id number] JULIUS RDTel: [id number]~~(092) 7 (HP) Primary Insurance:MEDICAL MUTUALPolicy Number: [id number] Date:3511-51-77[address], [place] [address]DB: URMILA L DACIA [facility] 09/22/2024 Primary Insuranc e:MMO SUPERMED PPOPolicy Number: [id number] Date:3216-69-85Jeng Name:Dirk ZAMORAMAIKB: [id number] [place] [address] [facility] 09/22/2024 Primary Insuranc e:MMO SUPERMED PPOPolicy Number: [id number] Date:0939-63-33Amxa Name:Dirk ZAMORAMAIKB: [id number] [place] [id number] [facility] 08/31/2024 URMILA Chanel HEIKEB: [id number] JULIUS RDTel: [phone]~~(192) 7 (HP) Primary Insurance:MEDICAL MUTUALPolicy Number: [id number] Date:7330-48-80[address] [address], [place] [address]FH: URMILA PEDERSON [facility] 08/26/2024 [address]rmila [address] [place] [address]Abk: (HP) Primary Insurance:MMOPolicy Number: [id number] Date:2174-46-73FA [id number] [place] [address]BH: Urmila ZamoraiDOB: [id number] [place] [address]Ayz: (HP) [facility] 08/26/2024 Secondary Insurance:Self PayPolicy Number: Effective Date:2024-08-26 NOT GIVENUNK [facility] 08/22/2024 URMILA ZAMORAIDOB: [id number] JULIUS RDTel: [phone]~~([phone] 6 (HP) Primary Insurance:MEDICAL MUTUALPolicy Number: [id number] Date:6745-77-57[address] [address], [place] [address]YU: URMILA PEDERSON [facility] 08/18/2024 URMILA ZAMORAIDOB: [id number] JULIUS RDTel: [phone]~~([phone] 6 (HP) Primary Insurance:MEDICAL MUTUALPolicy Number: [id number] Date:3056-37-55RS [address] [address], [place] [address]XX: URMILA PEDERSON [facility] 08/10/2024 URMILA ZAMORAIDOB: [id number] JULIUS RDTel: [phone]~~([phone] 6 (HP) Primary Insurance:MEDICAL MUTUALPolicy Number: [id number] Date:2755-17-18[address] [address], [place] [address]RA: URMILA PEDERSON [facility] 08/04/2024 Urmila Chanel [id number] [place] [address]Ztf: (HP) Primary Insurance:MMOPolicy Number: [id number] Date:1334-05-78YC [address] [place] [address]ZM: Tim HeikeB: [id number] [facility] [place] [address]Mmx: (HP) [facility] 08/04/2024 Secondary Insurance:Self PayPolicy Number: Effective Date:2024-06-14 [facility]/25/2024 URMILA ZAMORAMAIKB: [id number] [place] [address]Kfq: (HP) Primary Insurance:MEDICAL MUTUALPolicy Number: [id number] Date:2023-11-10 URMILA ZAMORAMAIKB: [id number] [place] [address] [facility] 07/11/2024 [address]rmila [address] [place] [address]Poc: (HP) Primary Insurance:MMOPolicy Number: [id number] Date:0671-66-73JQ [id number] [place] [address]LI: Urmila ZamoraMaikB: [id number] [place] [address]Pua: (HP) [facility] 07/11/2024 Secondary Insurance:Self PayPolicy Number: Effective Date:2024-06-27 [facility] 06/28/2024 URMILA ZAMORAMAIKB: [id number] [place] [address]Joq: (HP) Primary Insurance:MEDICAL MUTUALPolicy Number: [id number] Date:2023-11-10 URMILA ZAMORAIDOB: [id number] [place] [address] [facility] 06/15/2024 URMILA ZAMORAIDOB: [id number] [place] [address]Hvl: (HP) Primary Insurance:MEDICAL MUTUALPolicy Number: [id number] Date:2023-11-10 URMILA ZAMORAIDOB: [id number] [place] [address] [facility] 06/08/2024 Primary Insuranc e:MMO SUPERMED PPOPolicy Number: [id number] Date:6485-37-37Tgvg Name:Dirk URMILA BURROUGHSB: [id number] [place] [address] [facility] 03/31/2024 URMILA ZAMORAIDOB: [id number] [place] [address]Vqr: (HP) Primary Insurance:MEDICAL MUTUALPolicy Number: [id number] Date:2023-11-10 URMILA BURROUGHSB: [id number] [place] [address] [facility] 03/29/2024 Primary Insurance:AETNA POSPolicy Number: [id number] Date:7246-47-59Pvze Name:Eliane BURROUGHSB: [id number] [place] [address] [facility] 02/24/2024 URMILA ZAMORAIDOB: [id number] [place] [address]Lxw: (HP) Primary Insurance:MEDICAL MUTUALPolicy Number: [id number] Date:2023-11-10 URMILA ZAMORAIDOB: [id number] [place] [address] [facility] 02/01/2024 [address]rmila [address] [place] [address]Gaj: (HP) Primary Insurance:[employer] Insurance CompanyPolicy Number: [id number] Date:2024-02-01 Tim BurroughsB: [id number] [place] [address]Rdx: (HP) [facility] 02/01/2024 Secondary Insurance:Self PayPolicy Number: Effective Date:2024-02-01 [facility] 01/13/2024 URMILA CLEMENS: [id number] [place] [address]Ewz: (HP) Primary Insurance:AETNAPolicy Number: [id number] Date:1840-08-53Gkdy Name:DARRIN MCARTHUR [address] [address]LV: TIM BURROUGHSB: [id number] [place] [address] [facility] 11/25/2023 Primary Insurance:AETNA POSPolicy Number: [id number] Date:9556-00-86Xafc Name:Eliane CLEMENS: [id number] [place] [address] [facility]
--- OUTSIDE RECORDS SUMMARY | 2024-10-11 11:36 | XMS RPT_ITS ---
Author Name Auto Generated Organization [facility] Care Team Providers Care Java Developer Analyst Name Role Phone Rolanda Ortiz Attending U ale ChaoRolanda bradford Admitting U mehranailable Case, Kilo Chanel Primary Care Unavailable Anisha Krishna Attending Unavailable Anisha Krishna Admitting Unavailable Case, Kilo Chanel Primary Care [...] DATE TYPE CONDITION / CODE ATTENDING STATUS [facility] 09/22/2024 Active Alteration in me tabolic function / R63.8(ICD-10) NA Active [facility] 09/22/2024 Active Anxiety / F41.9(ICD-10) NA Activ e [facility] 09/22/2024 Active History of PCOS / Z87.42(ICD-10) NA Active [facility] 09/22/2024 Active Brain fog / R41.89(ICD-10) NA Active [facility] 09/22/2024 Active Stress / F43.9(ICD-10) NITA YANEZ ctive [facility] 09/22/2024 Active Nonintractable headache, unspecified chronicity pattern, unspecified headache type / R51.9(ICD-10) NITA YANEZ Active [facility] 08/26/2024 Unknown Headache, unspec ified / R51.9(ICD-10) Carlita Motta [facility] 08/04/2024 Unknown Other specified abnormal findings of blood chemistry / R79.89(ICD-10) Anisha Krishna [facility] 07/11/2024 Unknown Palpitations / R00.2(ICD-10) [facility] Chronic fatigue, unspecified / R53.82(ICD-10) [facility]24 Unknown Vitamin D defici ency, unspecified / E55.9(ICD-10) [facility] Unknown Deficiency of ot her specified B group vitamins / E53.8(ICD-10) [facility]2024 Unknown Abnormal level o f blood mineral / R79.0(ICD-10) [facility]/11/2024 Unknown Cramp and spasm / R25.2(ICD-10) [facility]11/2024 Unknown Nonscarring hair loss, unspecified / L65.9(ICD-10) [facility]11[facility]2024 Unknown Encounter for mo reening for lipoid disorders / Z13.220(ICD-10) [facility]2024 Unknown Pain in right le g / M79.604(ICD-10) Angel 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) HARMONY DUTTA Active [facility] 02/01/2024 Unknown Hirsutism / L68.0(ICD-10) Case, Kilo Chanel [facility] 02/01/2024 Unknown Abnormal uterine and vaginal bleeding, unspecified / N93.9(ICD-10) Case, Kilo Chanel [facility] 2023 Active Vitamin B12 defi ciency / E53.8(ICD-10) SUHAIL LEE Active [facility] PROCEDURES No Procedure Records Found RESULTS AMBULATORY VISIT SUMMARY Observed: 09/27 11:36 AM Status: F Source: [facility] Ambulatory Visit Summary URMILA RODRIGUEZ Yanique [...] 6 hours Migraine Neck pain Pickup at [facility] New clonazepam (clonazepam 0.5 mg oral tablet, disintegrating) 1 Tablets By Mouth 2 times a day Anxiety Refills: 1 Pickup at [facility] New tizanidine (tizanidine 4 mg oral capsule) 1 Capsules By Mouth 3 times a day Muscle spasm Refills: 2 Pickup at [facility] New triamcinolone topical (triamcinolone Top 0.5% Crm) 1 Application Topical 2 times a day Rash Refills: 1 Pickup at [facility] Unchanged alprazolam (Xanax 0.25 mg [...] 1 tab daily x3 days. Pharmacy Information [facility]: [address], [place] [id number] [phone] Allergies No Known Medication Allergies Problems Ongoing [...] yet, please contact Health Information Management at [phone] to get signed up today. Language Information Language assistance services are available as needed. FAMILY MEDICINE OFFICE/CLINI C NOTE Observed: 09/27/2024 11:36 AM Status: F Source: [facility] Family Medicine Office/Clini c Note Chief [...] BID, # 30 tab(s), Refills(s) 1, Pharmacy: [facility], 163, cm, 09/27/24 12:04:00 EDT, Height/Length Dosing, 55.2, kg, 09/27/24 12:04:00 EDT, Weight Dosing 3. Pain (R52: Pain, unspecified) percocet prn 4. Rash, (R21: Rash and other nonspecific skin eruption)Rash triamcinolone prn Ordered: triamcinolone topical, 1 ron, Topical, BID, 15 gram, Refill(s) 1, [facility], 163, cm, 09/27/24 12:04:00 EDT, Height/Length Dosing, 55.2, kg, 09/27/24 12:04:00 EDT, Weight Dosing Migraine (G43.909: Migraine, unspecified, not intractable, without status migrainosus) Ordered: acetaminophen-oxycodone, 1 tab(s), Oral, q6hr, 28 tab(s), Refill(s) 0, [facility], 163, cm, 09/27/24 12:04:00 EDT, Height/Length Dosing, 55.2, kg, 09/27/24 12:04:00 EDT, Weight Dosing Muscle spasm (M62.838: Other muscle spasm) Ordered: tizanidine, 4 mg = 1 cap(s), Oral, TID, # 90 cap(s), Refills(s) 2, Pharmacy: [facility], 163, cm, 09/27/24 12:04:00 EDT, Height/Length Dosing, 55.2, kg, 09/27/24 12:04:00 EDT, Weight Dosing Neck pain (M54.2: Cervicalgia) Ordered: acetaminophen-oxycodone, 1 tab(s), Oral, q6hr, 28 tab(s), Refill(s) 0, [facility], 163, cm, 09/27/24 12:04:00 EDT, Height/Length [...] 09/22/2024 11:41 AM Sta tus: F Source: [facility] Order Comment: Specimen Type : BLOOD SPECIMEN Ordering Facility: [facility] Address: [address] [place] [address] TYPE CODE TESTS RESULT OUT OF RANGE [...] from less than 10 ng/mL to about 59486 ng/mL. After oral administration of an immediate-release [...] min. for 20 doses (over 3 hours): 60880 ng/mL This test should be considered as [...] developed and its performance characteristics determined by [facility]. It has not been cleared or approved by the US Food and Drug Administration. Digital data review may have taken place remotely by qualified [facility] staff utilizing a secure VPN connection for some or all of the reported results. This is in accordance with and follows CLIA regulations. Testing performed at [facility] [address] [place] [id number] Garo Landaverde, PhD, F-FREYA, [facility]-, Dewer [facility] [id number] Performed By: #### [id number] ### # [facility] CLIA [id number] [address] [place] [address] [facility] Collected: 5 11:41 AM Status: F Source: [facility] Order Comment: Specimen Type : VENOUS BLOOD SPECIMEN Ordering Facility: [facility] Address: [address], [place] [address] TYPE CODE TESTS RESULT OUT OF RANGE REFERENCE UNITS LAB 37536-4(LOINC) Lead BldV-mCnc <1.0 <3.5 ug/dL Result Comment: [...] and its performance characteristics determined by the [facility] Department of Pathology and Laboratory Medicine. It has not been cleared or approved by the FDA. The [facility] Department of Pathology and Laboratory Medicine is regulated under CLIA as qualified to perform high- complexity testing. This test is used for clinical purposes. It should not be regarded as investigational or for research. Performed By: #### 5671-3 ## ## [facility] CLIA [id number] [address] [place] [address] OF [facility] ARSENIC BLD Collected: 11:41 AM Status: F Source: [facility] Order Comment: Specimen Type : BLOOD SPECIMEN Ordering Facility: [facility] Address: [address] [place] [address] TYPE CODE TESTS RESULT OUT OF RANGE [...] developed and its performance characteristics determined by [facility]. It has not been cleared or approved by the U.S. Food and Drug Administration. This test was performed in a CLIA-certified laboratory and is intended for clinical purposes. Performed By: [facility] [address] [place] [address] Dewer: Reyes Velez MD, PhD CLIA Number: [id number] Performed By: #### ASB #### [facility] CLIA [id number] [address] [place] [address] CADMIUM BLOOD Collected: 11:41 AM Status: F Source: [facility] Order Comment: Specimen Type : BLOOD SPECIMEN Ordering Facility: [facility] Address: [address] [place] [address] TYPE CODE TESTS RESULT OUT OF RANGE [...] developed and its performance characteristics determined by [facility]. It has not been cleared or approved by the US Food and Drug Administration. This test was performed in a CLIA certified laboratory and is intended for clinical purposes. Performed By: [facility] [address] [place] [address] Dewer: Reyes Velez MD, PhD CLIA Number: [id number] Performed By: #### CADM #### [facility] CLIA [id number] [address] [place] [address] COPPER BLOOD Collected: 11:41 AM Status: F Source: [facility] Comment: Specimen Type : BLOOD SPECIMEN Ordering Facility: [facility] Address: [address] [place] [address] TYPE CODE TESTS RESULT OUT OF RANGE REFERENCE UNITS LAB 5631-7(LOINC) Copper SerPl-mCnc 141 80-155 ug/dL Result Comment: This test wa s developed, and its performance characteristics determined by the [facility] Department of Pathology and Laboratory Medicine. It has not been cleared or approved by the FDA. The [facility] Department of Pathology and Laboratory Medicine is regulated under CLIA as qualified to perform high-complexity testing. This test is used for clinical purposes. It should not be regarded as investigational or for research. Performed By: #### COPPER ## ## [facility] CLIA [id number] [address] [place] [address] [place] VITAMIN B5(PANTOTHENIC AID) BIOASSAY Collected: 09/22/2024 11:41 AM Status: F Source: [facility] Order Comment: Specimen Type : BLOOD SPECIMEN Ordering Facility: [facility] Address: [address] [place] [address] TYPE CODE TESTS RESULT OUT OF RANGE REFERENCE UNITS LAB VITB5R VITAMIN B5 103.42 37.00-147.00 ug/L Result Comment: Adult Reference Range >10 Years 37 - 147 ug/L Pediatric Reference Range < or = 1 Year : 3.45 to 825 ug/L >1 Year to 10 Years: 3.45 to 229.2 ug/L The performance characteristics of the listed assay was validated by [facility]. The FDA has not approved or cleared this test. The results of this assay can be used for clinical diagnosis without FDA approval. [facility] is a CLIA certified, CAP accredited laboratory for performing high complexity assays such as this one. Testing Performed at: [facility] [address] [place] [address], [place] [address] Performed By: #### VITB5 ### # [facility] CLIA [id number] [address] [place] [address] VITAMIN B1 (THIAMINE), WHOLE BLOOD Nicholas ected: 09/22/2024 11:41 AM Status: F Source: [facility] Order Comment: Specimen Type : BLOOD SPECIMEN Ordering Facility: [facility] Address: [address] [place] [address] TYPE CODE TESTS RESULT OUT OF RANGE REFERENCE UNITS LAB 09694-7(LOINC) Vit B1 Bld-sCnc 156.1 84.3-213.3 nmol/L Result Comment: This assay m easures the concentration of thiamine diphosphate (TDP), the primary active form of vitamin B1. Approximately 90 percent of vitamin B1 present in whole blood is TDP. Thiamine and thiamine monophosphate, which comprise the remaining 10 percent, are not measured. This test was developed, and its performance characteristics determined by the [facility] Department of Pathology and Laboratory Medicine. It has not been cleared or approved by the FDA. The [facility] Department of Pathology and Laboratory Medicine is regulated under CLIA as qualified to perform high- complexity testing. This test is used for clinical purposes. It should not be regarded as investigational or for research. Performed By: #### B1WB #### [facility] CLIA [id number] [address] [place] [address] [place] MERCURY BLOOD Collected: 5 11:41 AM Status: F Source: [facility] Order Comment: Specimen Type : BLOOD SPECIMEN Ordering Facility: [facility] Address: [address] [place] [address] TYPE CODE TESTS RESULT OUT OF RANGE [...] developed and its performance characteristics determined by [facility]. It has not been cleared or approved by the US Food and Drug Administration. This test was performed in a CLIA certified laboratory and is intended for clinical purposes. Performed By: [facility] [address] [place], [place] [id number] Dewer: Reyes Velez MD, PhD CLIA Number: [id number] Performed By: #### MERC2 ### # [facility] CLIA [id number] [address] [place], [place] [id number] VITAMIN B6/PYRIDOXIN Collected: 025 11:41 AM Status: F Source: [facility] Order Comment: Specimen Type : BLOOD SPECIMEN Ordering Facility: [facility] Address: [address] [place] [address] TYPE CODE TESTS RESULT OUT OF RANGE REFERENCE UNITS LAB VITB6 VITAMIN B6 69.3 20.0-125.0 nmol/L Result Comment: INTERPRETIVE INFORMATION: Vitamin B6 (Pyridoxal 5-Phosphate) Pyridoxal 5'-phosphate measured in a specimen collected following an 8-hour or overnight fast accurately indicates vitamin B6 nutritional status. Non-fasting specimen concentration reflects recent vitamin intake. This test was developed and its performance characteristics determined by [facility]. It has not been cleared or approved by the US Food and Drug Administration. This test was performed in a CLIA certified laboratory and is intended for clinical purposes. Performed By: [facility] [address] [place] [address] Dewer: Reyes Velez MD, PhD CLIA Number: [id number] Performed By: #### VITB6 ### # [id number] [address] [place] [address] O[employer]GACHECK Collected: 5 11:41 AM Status: F Source: [facility] Order Comment: Specimen Type : BLOOD SPECIMEN Ordering Facility: [facility] Address: [address] [place] [address] TYPE CODE TESTS RESULT OUT OF RANGE [...] to 3 weeks. (Reference: 1-Uday brenner al. [facility]. 2002; 346: 0249-9726).This test was developed and its analytical performance characteristics have been determined by [facility]. It has not been cleared or approved by the U.S. Food and Drug Administration. This assay has been validated pursuant to the CLIA regulations and is used for clinical purposes. LAB ARACHE ARACHIDONIC ACID/EPA RATIO 49.5 High 3.7-40.7 Result Comment: Received Tao e: [id number] LAB OMEG63 OMEGA-6/OMEGA-3 RATIO 14.9 High 3.7-14.4 LAB OMEGA3 OMEGA-3 TOTAL 2.7 % by wt LAB OMEEPA EPA 0.2 0.2-2.3 % by wt LAB OMEDPA DPA 0.6 Low 0.8-1.8 % by wt LAB OMEDHA DHA 1.8 1.4-5.1 % by wt LAB OMEGA6 OMEGA-6 TOTAL 39.7 % by wt Result Comment: [facility] measures a number of omega-6 fatty acids with AA and LA being the two most abundant forms reported. LAB ARACHA ARACHIDONIC ACID 11.7 8.6-15.6 % by wt LAB ARACHL LINOLEIC ACID 24.9 18.6-29.5 % by wt Performed By: #### OMEGAC ## ## [facility] CLIA [id number] [address] [place] [address] VITAMIN B2/RIBOFLAV Collected: 09/23/19 25 11:41 AM Status: F Source: [facility] Order Comment: Specimen Type : BLOOD SPECIMEN Ordering Facility: [facility] Address: [address] [place] [address] TYPE CODE TESTS RESULT OUT OF RANGE REFERENCE UNITS LAB VITB2 VITAMIN B2 12 5-50 nmol/L Result Comment: INTERPRETIVE INFORMATION: Vitamin B2, Plasma This test was developed and its performance characteristics determined by [facility]. It has not been cleared or approved by the US Food and Drug Administration. This test was performed in a CLIA certified laboratory and is intended for clinical purposes. Performed By: [facility] [address] [place] [address] Dewer: Reyes Velez MD, PhD CLIA Number: [id number] Performed By: #### VITB2 ### # [facility] CLIA [id number] [address] [place] [address] VIT A SERPL-MCNC Collected: 11:41 AM Status: F Source: [facility] Order Comment: Specimen Type : BLOOD SPECIMEN Ordering Facility: [facility] Address: [address] [place] [address] TYPE CODE TESTS RESULT OUT OF RANGE REFERENCE UNITS LAB 2923-1(LOINC) Vit A SerPl-mCnc 0.55 0.30-1.20 mg/L Result Comment: This test wa s developed, and its performance characteristics determined by the [facility] Department of Pathology and Laboratory Medicine. It has not been cleared or approved by the FDA. The [facility] Department of Pathology and Laboratory Medicine is regulated under CLIA as qualified to perform high-complexity testing. This test is used for clinical purposes. It should not be regarded as investigational or for research. Performed By: #### 2923-1 ## ## [facility] CLIA [id number] [address] [place] [address] [place] PROGRESS Observed: 09/22/2024 10:21 AM Status: COMPLETED Source: [facility] HNO ID: [id number] Author: NITA YANEZ APRN.VAT TENDER Service: ? Author Type: Nurse Practitioner Type: Progress Notes Filed: 09/22/2024 11:32 Note Text: FUNCTIONAL MEDICINE INITIAL ASSESSMENT Patient: Urmila Rodriguez Recording using Cover Lockscreen software for draft documentation of the visit was discussed with the patient/authorized new accounts banking representative; all questions welcomed and answered. Patient/authorized new accounts banking representative agreed to proceed ALLERGIES No Known [...] New to provider visit today. Lives in [place], [place], accompanied by SO HPI: This is [...] relief. Previously seen by Dr. 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 - Symptoms include severe fatigue, brain fog, and inability to function normally. - Symptoms have worsened since the MRI with contrast. PCOS: - Self reports diagnosed by survival specialist due to high testosterone levels and irregular [...] gently. Follow up with the registered nurse midwife (RD) for a customized food plan. Consider a 3-day food log/dietary recall assessment with your RD. Goals: Eliminate highly processed foods. Low ram on alcohol, sugar, and starches. Increase plant fiber intake with color variety (eat the rainbow) for gut health as tolerated. [facility] labs ordered Stress regulation: Try the 4-7-8 [...] including diet. Follow up with the health college coach every 2 weeks to keep things in [...] to clean the air. You can visit www.Sky Frequency.HomeCon to learn more. Other ways to improve [...] alternative. Whole Food Recipe Blogs Tiki Benedict: https://Vocab.HomeCon/ Plant Based RD (Vegan and plant diverse): https://plantbasedrSearchperience Inc.log.com/recipes/ Rachaels Good Eats: https://BMP Sunstone Corporation.HomeCon/ Cookie and Macie: https://Sirna Therapeutics.HomeCon/ Love and Beto: https://www.Awesome.me.HomeCon/recipes/ 101 Cookbooks: https://www.SqrrlcoHQ plusbookMerlin.HomeCon/ Naturally Lori:https://naturallyella.com/ The N4G.com Food Dietitians: https://The Local.HomeCon/ Follow up: Please schedule a follow up visit with the following Caregivers: Provider: 12weeks, Agricultural Education Teacher: 4 weeks, and Health Warehouse Supervisor: 2 weeks Life Sciences Manager (RD): During the next 4-8 weeks you'll be working on your diet plan with our RD, allowing for gentle detoxification and decreasing inflammation - while we are gathering your lab results and combining those with your complete history to formulate a very personalized treatment plan. [phone]. Health Coaching: Recommend follow up every 2 weeks to develop a consistent routine. Please consider scheduling with our [place] [facility] health coaches for a phone or virtual visit for accountability, goal setting and help with behavior exchange administrator the next 6-8 weeks to be successful with your goals. [phone]. CFM Therapist: This is optional. Weekly or bi-monthly appointments can be helpful. [phone]. Due to the complexity of the testing performed, we are not able to review labs via ColdWatthart or over the phone, but please know, if any of your labs are critical we will contact you. Otherwise, we will review all your labs at your next visit. Time spent with patient: I spent a total of 60 minutes on the date of the service which included preparing to see the patient, evua-pm-sdir patient care, completing clinical documentation, obtaining and/or reviewing separately obtained history, performing a medically appropriate examination, counseling and educating the patient/family/caregiver, and ordering medications, tests, or procedures. Nita Yanez APRN.KALEB 09/22/2024 11:31 AM [1] CNOV Observed: 09/22/2024 10:15 AM Status: COMPLETED Source: [facility] Office Visit ([facility]) NOAHURMILA Palacios ([id number]) 1980 F Date Time Provider Department 09/22/24 10:15 AM NITA YANEZ [facility] During your visit today, we recorded the following information about you: Pulse Blood pressure Weight Height 80/minute 119/78 55.4 kg 1.6 m Nita Yanez APRN.VAT TENDER 09/22/2024 11:32 AM Signed FUNCTIONAL MEDICINE INITIAL ASSESSMENT Patient: Urmila Rodriguez Recording using Cover Lockscreen software for draft documentation of the visit was discussed with the patient/authorized new accounts banking representative; all questions welcomed and answered. Patient/authorized new accounts banking representative agreed to proceed ALLERGIES No Known [...] New to provider visit today. Lives in [place], [place], accompanied by SO HPI: This is [...] relief. Previously seen by Dr. 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 - Symptoms include severe fatigue, brain fog, and inability to function normally. - Symptoms have worsened since the MRI with contrast. PCOS: - Self reports diagnosed by survival specialist due to high testosterone levels and irregular [...] gently. Follow up with the registered nurse midwife (RD) for a customized food plan. Consider a 3-day food log/dietary recall assessment with your RD. Goals: Eliminate highly processed foods. Low ram on alcohol, sugar, and starches. Increase plant fiber intake with color variety (eat the rainbow) for gut health as tolerated. [facility] labs ordered Stress regulation: Try the 4-7-8 [...] including diet. Follow up with the health college coach every 2 weeks to keep things in [...] to clean the air. You can visit www.Sky Frequency.HomeCon to learn more. Other ways to improve [...] alternative. Whole Food Recipe Blogs Tikifely Benedict: https://Adknowledge/ Plant Based RD (Vegan and plant diverse): https://plantbaseGreenlight Technologies.HomeCon/recipes/ Autowatts Good Eats: https://Soteira/ Cookie and Macie: https://Sirna Therapeutics.HomeCon/ Love and Beto: https://www.Awesome.me.HomeCon/recipes/ 101 Cookbooks: https://www.101cookbooks.com/ Naturally Lori:https://naturallyella.com/ The Real Food Dietitians: https://NovaRay Medicalwafooddietitians.HomeCon/ Follow up: Please schedule a follow up visit with the following Caregivers: Provider: 12weeks, Agricultural Education Teacher: 4 weeks, and Health Warehouse Supervisor: 2 weeks Life Sciences Manager (RD): During the next 4-8 weeks you'll be working on your diet plan with our RD, allowing for gentle detoxification and decreasing inflammation - while we are gathering your lab results and combining those with your complete history to formulate a very personalized treatment plan. [phone]. Health Coaching: Recommend follow up every 2 weeks to develop a consistent routine. Please consider scheduling with our [facility] health coaches for a phone or virtual visit for accountability, goal setting and help with behavior exchange administrator the next 6-8 weeks to be successful with your goals. [phone]. CFM Therapist: This is optional. Weekly or bi-monthly appointments can be helpful. [phone]. Due to the complexity of the testing [...] which included preparing to see the patient, [id number] patient care, completing clinical documentation, obtaining and/or reviewing separately obtained history, performing a medically appropriate examination, counseling and educating the patient/family/caregiver, and ordering medications, tests, or procedures. Nita Yanez APRN.VAT TENDER 09/22/2024 11:31 AM [1] Nita Yanez APRN.KALEB 09/22/2024 11:31 AM Signed Plan and Lifestyle Prescription PLAN with Patient Instructions: Based on your evaluation today, these are my recommendations: Follow up with [facility] neurology for persistent, daily headaches - referral provided. Of course for any new concerns or if worse in any way, the ER is a 24/ option Modified Core Diet: consider GF. Discuss well-sourced protein options and balanced meals/snack ideas. Expand vegetable diversity for microbiome support slowly and gently. Follow up with the registered nurse midwife (RD) for a customized food plan. Consider a 3-day food log/dietary recall assessment with your RD. Goals: Eliminate highly processed foods. Low ram on alcohol, sugar, and starches. Increase plant fiber intake with color variety (eat the rainbow) for gut health as tolerated. [facility] labs ordered Stress regulation: Try the 4-7-8 [...] including diet. Follow up with the health college coach every 2 weeks to keep things in [...] to clean the air. You can visit www.Sky Frequency.HomeCon to learn more. Other ways to improve [...] alternative. Whole Food Recipe Blogs Tiki Benedict: https://Adknowledge/ Plant Based RD (Vegan and plant diverse): https://plantbasedrSearchperience Inc.log.HomeCon/recipes/ Autowatts Good Eats: https://Soteira/ Cookie and Macie: https://Sirna Therapeutics.HomeCon/ Love and Beto: https://www.Awesome.me.HomeCon/recipes/ 101 Cookbooks: https://www.101cookbooks.HomeCon/ Naturally Lori:https://naturallyella.com/ The Real Food Dietitians: https://The Local.HomeCon/ Follow up: Please schedule a follow up visit with the following Caregivers: Provider: 12weeks, Agricultural Education Teacher: 4 weeks, and Health Warehouse Supervisor: 2 weeks Life Sciences Manager (RD): During the next 4-8 weeks you'll be working on your diet plan with our RD, allowing for gentle detoxification and decreasing inflammation - while we are gathering your lab results and combining those with your complete history to formulate a very personalized treatment plan. [phone]. Health Coaching: Recommend follow up every 2 weeks to develop a consistent routine. Please consider scheduling with our [facility] health coaches for a phone or virtual visit for accountability, goal setting and help with behavior exchange administrator the next 6-8 weeks to be successful with your goals. [phone]. CFM Therapist: This is optional. Weekly or bi-monthly appointments can be helpful. [phone]. Due to the complexity of the testing performed, we are not able to review labs via ColdWatthart or over the phone, but please know, [...] type [R51.9] Order(s):VITAMIN A/RETINOL [SQVITA] Order #: [id number] FUTURE OMEGACHECK [SQOMEGAC] Order #: [id number] FUTURE COPPER BLOOD [SQCOPPER] Order #: [id number] FUTURE VITAMIN B1 (THIAMINE), WHOLE BLOOD [SQB1WB] Order #: [id number] FUTURE MERCURY BLOOD [SQMERC2] Order #: [id number] FUTURE ARSENIC BLD [SQASB] Order #: [id number] FUTURE LEAD BLOOD [SQLEAD] Order #: [id number] FUTURE CADMIUM BLOOD [SQCADM] Order #: [id number] FUTURE CONSULT TO NEUROLOGY [9019] Order #: [id number]: 1 FUTURE VITAMIN B6/PYRIDOXIN [SQVITB6] Order #: [id number] FUTURE VITAMIN B2/RIBOFLAV [SQVITB2] Order #: [id number] FUTURE BIOTIN (VITAMIN B7) [SQVITB7] Order #: [id number] FUTURE VITAMIN B3/NIACIN [IPJ4DKD] Order #: [id number] FUTURE VITAMIN B5(PANTOTHENIC AID) BIOASSAY [SQVITB5] Order #: [id number] FUTURE CONSULT TO FUNCTIONAL MEDICINE BEHAVIORAL HEALTH [0823874] Order #: [id number]: 1 FUTURE Prescriptions as of 09/22/2024 - [...] gently. Follow up with the registered nurse midwife (RD) for a customized food plan. Consider [...] including diet. Follow up with the health college coach every 2 weeks to keep things in [...] to clean the air. You can visit www.Forward Talent to learn more. Other ways to improve [...] alternative. Whole Food Recipe Blogs Tiki Benedict: https://gabyHitch Radio/ Plant Based RD (Vegan and plant diverse): https://plantbasedrdblog.com/recipes/ Racdavide Good Eats: https://Soteira/ Cookie and Macie: https://OopsLab/ Love and Beot: https://www.Awesome.me.HomeCon/recipes/ 101 Cookbooks: https://www.101cookbooks.com/ Naturally Lori:https://naturallyella.com/ The Real Food Dietitians: https://NovaRay Medicalalfooddietitians.HomeCon/ Follow up: Please schedule a follow up visit with the following Caregivers: Provider: 12weeks, Agricultural Education Teacher: 4 weeks, and Health Warehouse Supervisor: 2 weeks Life Sciences Manager (RD): During the next 4-8 weeks you'll be working on your diet plan with our RD, allowing for gentle detoxification and decreasing inflammation - while we are gathering your lab results and combining those with your complete history to formulate a very personalized treatment plan. [phone]. Health Coaching: Recommend follow up every 2 weeks to develop a consistent routine. Please consider scheduling with our [facility] health coaches for a phone or virtual visit for accountability, goal setting and help with behavior exchange administrator the next 6-8 weeks to be successful with your goals. [phone]. CFM Therapist: This is optional. Weekly or bi-monthly appointments can be helpful. [phone]. Due to the complexity of the testing performed, we are not able to review labs via ColdWatthart or over the phone, but please know, if any of your labs are critical we will contact you. Otherwise, we will review all your labs at your next visit. Disposition: Return in about 3 months (around 12/23/2024). Follow-up and Disposition History for Encounter Date Provider Department Center 09/22/2024 [id number], NICOLE [facility] Main - Bld Encounter Status:Closed by NITA YANEZ on 09/22/24 ONCOLOGY PROGRESS NOTE Observed: 025 9:42 AM Status: F Source: [facility] Oncology Progress Note Chief Complaint New [...] in the last year. She saw an survival specialist who thought she might be perimenopausal. She reports periods were very 3 weeks. Her periods are heavy the first 2-3 days (Has to wear a tampon and pad. Changes every 2-3 hours)hen slowly jailyn off over 6. She had a GI evaluation when she was having a lot of GERD. She had an endoscopy through [facility]. No dark tarry stool, abdominal pain, blood [...] control. She had a recent endoscopy at [facility]. She is not currently having any stomach [...] available Get records of endoscopy records from [facility]. PRN Medications Multi Vitamin+ Valium 10 mg [...] Collected: 08/26/2024 5:47 PM Status: F Source: [facility] TYPE CODE TESTS RESULT OUT OF RANGE [...] 0.0-0.2 10*3/uL Result Comment: PERFORMED BY : [facility] [place] [address] PATHOLOGIST SPUN PASTE MACHINE OPERATOR MERYL MALAVE M.D. Performed By: #### CBC, CMP #### [facility] [id number] [facility] COMPREHENSIVE METABOLIC PANEL Collected: 08/26/2024 5 :47 PM Status: F Source: [facility] TYPE CODE TESTS RESULT OUT OF RANGE [...] Pharmacy 86.26 Result Comment: PERFORMED BY : [place] [address] PATHOLOGIST SPUN PASTE MACHINE OPERATOR MERYL MALAVE M.D. Performed By: #### CBC, CMP #### [facility] [address] [place], [place] [id number] [facility] REMINDERS Observed: 08/25/2024 1:37 PM Status: C Source: [facility] Reminders From: WHITNEY VENTURA To: FMM [...] 23.4 % (14.0 - 50.0) 08/22/2024 8:41 Rice Auto 7.3 % (4.0 - 14.0) 08/22/2024 8:41 Eos Auto 1.7 % (0.0 - 8.0) 08/22/2024 8:41 Basophil Auto 0.7 % (0.0 - 2.0) 08/22/2024 8:41 Neutro Absolute 3.1 E9/L (2.0 - 7.5) 08/22/2024 8:41 Lymph Absolute 1.1 E9/L (1.0 - 4.0) 08/22/2024 8:41 Rice Absolute 0.3 E9/L (0.2 - 1.0) 08/22/2024 [...] Observed: 08/25/2024 1:37 PM Status: F Source: [facility] Reminders From: WHITNEY VENTURA To: FMM [...] 23.4 % (14.0 - 50.0) 08/22/2024 8:41 Rice Auto 7.3 % (4.0 - 14.0) 08/22/2024 8:41 Eos Auto 1.7 % (0.0 - 8.0) 08/22/2024 8:41 Basophil Auto 0.7 % (0.0 - 2.0) 08/22/2024 8:41 Neutro Absolute 3.1 E9/L (2.0 - 7.5) 08/22/2024 8:41 Lymph Absolute 1.1 E9/L (1.0 - 4.0) 08/22/2024 8:41 Rice Absolute 0.3 E9/L (0.2 - 1.0) 08/22/2024 [...] Observed: 08/22/2024 10:39 AM Status: C Source: [facility] Reminders From: WHITNEY VENTURA To: [facility] - Clinical; Sent: 08/22/2024 10:39:05 EDT Show [...] of her system. From: Nayeli Boone LPN ([facility] - Clinical) To: ACOSTA VENTURA; Sent: 08/22/2024 14:42:04 EDT ! Show up: 08/22/2024 14:42:00 EDT REMINDERS Observed: 08/22/2024 10:36 AM Status: C Source: [facility] Reminders From: WHITNEY VENTURA To: [facility] Clinical; Sent: 08/22/2024 10:36:27 EDT Show up: [...] Collected: 08/22/2024 8:41 AM Status: F Source: [facility] TYPE CODE TESTS RESULT OUT OF RANGE REFERENCE UNITS LAB [id number](LOINC) Glucose Lvl 83 Normal 55-199 mg/d L LAB 67702768(LOINC) BUN 8 Normal 5-21 mg/dL LAB 8072908(LOINC) Creatinine 0.8 Normal 0.5-1.3 mg/dL LAB 59676771(INC) Calcium Lvl 9.3 Normal 8.9-11.1 mg/ dL LAB 45163791(INC) Sodium Lvl 133 Low 135-145 mmol/ L LAB 39124217(INC) Potassium Lvl 3.7 Normal 3.5-5.3 mm ol/L LAB 22721442(INC) Chloride 98 Low 101-111 mmol/L LAB 60513315(INC) CO2 27 Normal 21-31 mmol/L LAB 21712630([facility]) Alk Phos 25 Normal 21-98 Int._Un it /L LAB 69491118([facility]) Bili Total 0.5 Normal 0.0-1.1 mg/dL LAB 78357520(INC) Albumin Lvl 4.5 Normal 3.3-5.0 gm/d L LAB 57376975(INC) Total Protein 7.2 Normal 6.0-7.8 gm /dL LAB 25838589(INC) ALT 12 Normal 6-46 Int._Uni t /L LAB 72161321(INC) AST 14 Normal 5-43 Int._Uni t /L LAB 58396110(INC) BUN/Creat Ratio 10 Normal 10-20 No Units LAB 51280414([facility]) AGAP 12 Normal 6-16 mEq/L LAB 04445819([facility]) Globulin 2.7 Normal 1.4-4.0 gm/dL LAB 91781289([facility]) A/G Ratio 1.7 Normal 1.1-2.2 Performed By: #### [id number] # ### [facility] [address] [place] [address] INSULIN FREE AND TOTAL Collected: 08/22 8:41 AM Status: F Source: [facility] TYPE CODE TESTS RESULT OUT OF RANGE REFERENCE UNITS LAB [id number]([facility]) Insulin Free 4.9 Unknown Result Comment: Reference Ra nge: Pubertal Children and Adults (fasting): 0 - 17 LAB 29493992([facility]) Insulin Lvl 4.9 Unknown Result [...] developed and its performance characteristics determined by [facility]. It has not been cleared or approved by the Food and Drug Administration. Performed at: [email or web address] [address], [place] [id number] MD Tony Valiente Performed By: #### [id number] #### [facility] [address] [place] [address] TSH WITH T4FR REFLEX Collected: 025 8:41 AM Status: F Source: [facility] TYPE CODE TESTS RESULT OUT OF RANGE REFERENCE UNITS LAB 70703691(LOINC) TSH 0.86 Normal 0.34-5.60 mcIU/m L Performed By: #### [id number] #### [facility] [address] [place] [address] KEL W/REFLEX IF POS Collected: 08/23/19 8:41 AM Status: F Source: [facility] TYPE CODE TESTS RESULT OUT OF RANGE REFERENCE UNITS LAB 36742396(LOINC) KEL Direct Negative Unknown Negative Result Comment: Performed at : [address] [id number] PhD Annabel Riley Performed By: #### [id number] #### [facility] [address] [place] [address] SED RATE AUTOMATED Collected: 08/22/2024 8:41 AM Sta tus: F Source: [facility] TYPE CODE TESTS RESULT OUT OF RANGE REFERENCE UNITS LAB 09968962(LOINC) Sed Rate Automated 6 Normal 0-34 mm/hr Performed By: #### [id number] #### [facility] [address] [place] [address] IRON Collected: 8:41 AM Status: F Source: [facility] TYPE CODE TESTS RESULT OUT OF RANGE REFERENCE UNITS LAB 60586858(INC) Iron 87 Normal 35-153 microgra m/ dL Performed By: #### [id number] # ### [facility] [address] [place] [address] CRP HS Collected: 08/22/2024 8:41 AM Status: F Source: [facility] TYPE CODE TESTS RESULT OUT OF RANGE REFERENCE UNITS LAB 46776687([facility]) CRP High Sens 0.07 Normal <=0.75 mg /dL Performed By: #### [id number] #### [facility] [address] [place] [address] CBC W/ AUTO DIFF Collected: 8:41 AM Status: F Source: [facility] TYPE CODE TESTS RESULT OUT OF RANGE REFERENCE UNITS LAB 80537422(LOINC) WBC 4.7 Normal 4.0-11.0 E9/L LAB 06057311(LOINC) RBC 4.6 Normal 4.3-5.9 E12/L LAB 95648276(LOINC) HGB 13.8 Normal 12.0-16.0 gm/dL LAB 61600988(LOINC) Hct 39.1 Normal 34.0-46.0 % LAB 63355852(LOINC) RDW 12.6 Normal 10.9-14.2 % LAB 88738036(LOINC) MCH 30.2 Normal 27.0-34.0 pg LAB 31160811(LOINC) MCHC 35.4 Normal 31.4-36.0 gm/dL LAB 45498159(LOINC) MCV 85.3 Normal 80.0-100.0 fL LAB 40974343(LOINC) MPV 7.5 Normal 6.4-10.8 fL LAB 16825220(LOINC) Platelet 218.0 Normal 150.0-500.0 E9/ L LAB 85208938(LOINC) Neutro Auto 66.9 Normal 36.0-75.0 % LAB 70469591(LOINC) Lymph Auto 23.4 Normal 14.0-50.0 % LAB 65425983(LOINC) Rice Auto 7.3 Normal 4.0-14.0 % LAB 27610492(LOINC) Eos Auto 1.7 Normal 0.0-8.0 % LAB 48552974(LOINC) Basophil Auto 0.7 Normal 0.0-2.0 % LAB 14448386(LOINC) Neutro Absolute 3.1 Normal 2.0-7.5 E9/L LAB 96144897(LOINC) Lymph Absolute 1.1 Normal 1.0-4.0 E9/L LAB 02766736(LOINC) Rice Absolute 0.3 Normal 0.2-1.0 E9 /L LAB 56472226(LOINC) Eos Absolute 0.1 Normal 0.0-0.5 E9/ L LAB 93528942(LOINC) Basophil Absolute 0.0 Normal 0.0-0.2 E9/L Performed By: #### [id number] # ### [facility] [address] [place] [address] VITAMIN D 25 HYDROXY Collected: 08/22/2024 8:41 AM S tatus: F Source: [facility] TYPE CODE TESTS RESULT OUT OF RANGE REFERENCE UNITS LAB CD:[id number]([facility]) Vitamin D 25 Hydroxy 46.6 Normal 30.0-100.0 ng/mL Performed By: #### [id number] #### [facility] [address] [place] [address] LYME ABS RFX Collected: 8:41 AM Status: F Source: [facility] TYPE CODE TESTS RESULT OUT OF RANGE REFERENCE UNITS LAB CD:[id number](L OINC) Lyme Total Antibody HARPREET Negative Unknown [...] to 14 days is recommended. Performed at: [facility] [id number] PhD Annabel Riley Performed By: #### [id number] #### [facility] [address] [place], [place] [address] EGFR Collected: 8:41 AM Status: F Source: [facility] TYPE CODE TESTS RESULT OUT OF RANGE REFERENCE UNITS LAB 48413060(LOINC) eGFR 94 Normal >=59 mL/min/1 .7 3 m2 Performed By: #### [id number] #### [facility] [address] [place], [place] [address] FERRITIN Collected: 08/22/2024 8:41 AM Status: F Source: [facility] TYPE CODE TESTS RESULT OUT OF RANGE REFERENCE UNITS LAB 23086205(LOINC) Ferritin Lvl 31 Normal 11-307 ng/ mL Performed By: #### [id number] # ### [facility] [address] [place] [address] RF QUANT Collected: 8:41 AM Status: F Source: [facility] TYPE CODE TESTS RESULT OUT OF RANGE REFERENCE UNITS LAB 81546025(LOINC) RA Latex Turbid 10.3 Unknown <14.0 Internati onal_Unit /mL Result Comment: Performed at : [facility] [address] [id number] PhD Annabel Riley Performed By: #### [id number] #### [facility] [address] [place], [place] [address] VIT B12 Collected: 08/22/2024 8:41 AM Status: F Source: [facility] TYPE CODE TESTS RESULT OUT OF RANGE REFERENCE UNITS LAB 43346253(LOINC) Vitamin B12 Lvl 873 Normal 50-1500 pg/mL Performed By: #### [id number] # ### [facility] [address] [place] [address] ASIM AND PE, SERUM Collected: 8:41 AM Status: F Source: [facility] TYPE CODE TESTS RESULT OUT OF RANGE REFERENCE UNITS LAB 53746118(LOINC ) IgG Quant 1151 Unknown 586-1602 mg/dL LAB 80295174(LOINC ) IgA Quant 174 Unknown 87-352 mg/dL LAB 89829738(LOINC ) IgM Quant 152 Unknown 26-217 mg/dL LAB 92744770(INC ) Protein Total 7.1 Unknown 6.0-8.5 gm/dL LAB 30366262(INC ) Albumin Level 4.1 Unknown 2.9-4.4 gm/dL LAB 45062782(LOINC ) Alpha 1 Glob 0.2 Unknown 0.0-0.4 gm/dL LAB 86755111(INC ) Alpha 2 Glob 0.6 Unknown 0.4-1.0 gm/dL LAB 35179556(INC ) Beta Glob 1.0 Unknown 0.7-1.3 gm/dL LAB 51136466(INC ) Gamma Glob 1.2 Unknown 0.4-1.8 gm/dL LAB 42891346(INC ) M-Prem Not Observed Unknown Not Observed gm/dL LAB 48136752([facility] ) Globulin 3.0 Unknown 2.2-3.9 gm/dL LAB 32505928(INC ) A/G Ratio 1.4 Unknown 0.7-1.7 LAB 04454308([facility] ) Immunofix. Result Comment Unknown Result Comment: No monoclona lity detected. LAB 15848859([facility] ) Note Comment Unknown Result Comment: Protein elec trophoresis scan will follow via computer, mail, or line haul truck driver delivery. Performed at: [facility] [id number] PhD Annabel Riley Performed By: #### [id number] #### [facility] [address] [place] [address] THYROID Observed: 08/18/2024 3:04 PM Status: F Source: [facility] Exam Date/Time: 08/18/2024 15:29 EDT Reason [...] Signed by: Darien Austin MD Transcribed by: ARIA Technologist: TAWNYA MRI BRAIN W/ + W/O CONTRAST Observed: 1:53 PM Status: F Source: [facility] Exam Date/Time: 08/18/2024 14:48 EDT Reason [...] Observed: 08/10 8:30 AM Status: F Source: [facility] Ambulatory Visit Summary URMILA RODRIGUEZ :1980 [...] Someone Will Contact You Regarding These Appointments [facility] External Ambulatory Referral, Vascular Surgery, Dr Zazueta, 08/10/24 10:18:00 EDT, Poor circulation of extremity Medications What How Much When Why Instructions New alprazolam (Xanax 0.25 mg Tab) 1 Tablets By Mouth Every 8 hours Anxiety Refills: 1 Pickup at [facility] New diazepam (Valium 10 mg Tab) 1 Tablets By Mouth Once as needed for for anxiety Claustrophobia Pickup at [facility] Unchanged multivitamin (Multi Vitamin+) Pharmacy Information [facility]: [address] [place], [place] [id number] [phone] Allergies No Known Medication Allergies Patient Survey [...] yet, please contact Health Information Management at [phone] to get signed up today. Language Information Language assistance services are available as needed. FAMILY MEDICINE OFFICE/CLINI C NOTE Observed: 08/10/2024 8:30 AM Status: F Source: [facility] Family Medicine Office/Clini c Note Chief [...] 43 year old female who presents to [facility]. She was seeing Fermín Louis at [facility] and she had labs done in July [...] she was diag nosed with narcolepsy in [place]. She was started on ritalin, modafinil, and [...] was suppose to see Dr Bynum in [place] but he was in an emergent surgery [...] Anemia, unspecified) referral to hem/onc labs Ordered: [facility] Internal Ambulatory Referral 2. Anxiety (F41.9: Anxiety disorder, unspecified) refill xanax Ordered: alprazolam, 0.25 mg = 1 tab(s), Oral, q8hr, # 30 tab(s), Refills(s) 1, Pharmacy: [facility], 163, cm, 08/10/24 9:12:00 EDT, Height/Length [...] anxiety, # 1 tab(s), Refills(s) 0, Pharmacy: [facility], 163, cm, 08/10/24 9:12:00 EDT, Height/Length Dosing, 56.1, kg, 08/10/24 9:12:00 EDT, Weight Dosing 4. Poor circulation of extremity (R09.89: Other specified symptoms and signs involving the circulatory and respiratory systems) referral to Dr Zazueta Ordered: KEL w/Reflex if POS C-Reactive Protein High Sensitivity CBC w/ Auto Diff Comprehensive Metabolic Panel [facility] External Ambulatory Referral ASIM and PE, Serum [...] TESTOSTERONE Collected: 7:11 AM Status: F Source: [facility] TYPE CODE TESTS RESULT OUT OF RANGE REFERENCE UNITS LAB TEST Testosterone 0.30 Normal 0.00-0.75 ng/mL Result Comment: PERFORMED BY : [facility] [place] [address] PATHOLOGIST SPUN PASTE MACHINE OPERATOR MERYL MALAVE M.D. Performed By: #### DALIA, LH , 17OHPROG, DHEAS #### [facility] , #### IRMA, TEST, FSH, BMP #### [facility] [address] BASIC METABOLIC PANEL Collected: 08/04/2024 7:11 AM Status: F Source: [facility] TYPE CODE TESTS RESULT OUT OF RANGE [...] , #### IRMA, TEST, FSH, BMP #### [address] FOLLICLE STIMULATING HORMONE Collected: 08/04/2024 7: 11 AM Status: F Source: [facility] TYPE CODE TESTS RESULT OUT OF RANGE REFERENCE UNITS LAB FSH Follicle Stimulating Hormone 0.9 m[iU]/mL Result Comment: FEMALE NORM ALS (PREMENOPAUSE) MID-FOLLICULAR PHASE: 3.9-8.8 mIU/mL MID-CYCLE PEAK: 4.5-22.5 mIU/mL MID-LUTEAL PHASE: 1.8-5.1 mIU/mL FEMALE NORMALS (POSTMENOPAUSE): 16.7-113.6 mIU/mL MALE NORMALS: 1.3-19.3 mIU/mL Performed By: #### DALIA, LH , 17OHPROG, DHEAS #### [facility] , #### IRMA, TEST, FSH, BMP #### [address] CORTISOL Collected: 7:11 AM Status: F Source: [facility] TYPE CODE TESTS RESULT OUT OF RANGE REFERENCE UNITS LAB IRMA Cortisol 20.3 ug/dL Result Comment: Reference ra nge: AM 6 - 24 ug/dl PM <10 ug/dl [facility] case management director and method: NEIL UNICEL DXI, POLYCLONAL ANTIBODY CORTISOL ASSAY. PERFORMED BY: [place] [address] PATHOLOGIST SPUN PASTE MACHINE OPERATOR MERYL MALAVE M.D. Performed By: #### DALIA, LH , 17OHPROG, DHEAS #### [facility] , #### IRMA, TEST, FSH, BMP #### [address] 17ALPHA HYDROXYPROGESTERONE Collected: 08/04/2024 7:1 1 AM Status: F Source: [facility] TYPE CODE TESTS RESULT OUT OF RANGE REFERENCE UNITS LAB 17OHPROG 17Alpha Hydroxyprogesterone 16 . ng/dL Result Comment: Adult Female Follicular 15 - 70 Luteal 35 - 290 This test was developed and its performance characteristics determined by [employer]. It has not been cleared or approved by the Food and Drug Administration. Performed at: [address] [id number] Supercalender Operator: Maggie Quiroz MD, Phone: [phone] Performed By: #### DALIA, LH , 17OHPROG, DHEAS #### [facility] , #### IRMA, TEST, FSH, BMP #### [address] ANDROSTENEDIONE Collected: 08/04/2024 7:11 AM Status : F Source: [facility] TYPE CODE TESTS RESULT OUT OF RANGE REFERENCE UNITS LAB DALIA Androstenedione 93 41-262 ng/dL Result Comment: This test wa s developed and its performance characteristics determined by [facility]. It has not been cleared or approved by the Food and Drug Administration. Performed at: [facility] - [address] [id number] Supercalender Operator: Maggie Quiroz MD, Phone: [phone] Performed By: #### DALIA, LH , 17OHPROG, DHEAS #### [facility] , #### IRMA, TEST, FSH, BMP #### [facility] [address] [place] [address] LUTEINIZING HORMONE Collected: 08/04/2024 7:[address] atus: F Source: [facility] TYPE CODE TESTS RESULT OUT OF RANGE REFERENCE UNITS LAB LH Luteinizing Hormone 1.8 . m[iU]/mL Result Comment: Adult Female Range Follicular phase 2.4 - 12.6 Ovulation phase 14.0 - 95.6 Luteal phase 1.0 - 11.4 Postmenopausal 7.7 - 58.5 Performed at: [facility] [address] [id number] Supercalender Operator: Osvaldo Jin PhD, Phone: [phone] Performed By: #### DALIA, LH , 17OHPROG, DHEAS #### [facility] , #### IRMA, TEST, FSH, BMP #### [address] DEHYDROEPIANDROSTERONE SULFATE Collected: 08/04/2024 7:11 AM Status: F Source: [facility] TYPE CODE TESTS RESULT OUT OF RANGE REFERENCE UNITS LAB DHEAS Dehydroepiandros ter one Sulfate 159.0 57.3-279.2 ug/dL Result Comment: PERFORMED BY : [place] [address] PATHOLOGIST SPUN PASTE MACHINE OPERATOR MERYL MALAVE M.D. Performed By: #### DALIA, LH , 17OHPROG, DHEAS #### [facility] , #### IRMA, TEST, FSH, BMP #### [facility] [address] [place] [address] US VENOUS DUPLEX LE BI Observed: 025 2:10 PM Status: COMPLETED Source: [facility] [place] [address] [address] Ultrasound Report Signed Patient: Urmila Rodriguez MR#: [id number] 97 : 1980 Acct:[id number] Age/Sex: 43 / F ADM Date: 07/11/24 Loc: Room: Type: [facility] Attending Dr: Rolanda Ortiz STEAM DISTRIBUTION SUPERVISOR-C Ordering Provider: Rolanda Ortiz Date of Service: [...] this time. Impression dictated by: Tano Love MD,[facility] 07/11/2024 2:10 PM Dictation Location: [place] [address] Tech: Mayra Sandoval Transcribed By: [facility] 07/11/24 1410 Dictated By: Tano Love MD 07/11/24 1410 Signed By: <Electronically signed by Tano Love MD in OV> 07/11/24 1410 TRIIODOTHYRONINE (T3) FREE Collected: 07/11/2024 8:48 AM Status: F Source: [facility] TYPE CODE TESTS RESULT OUT OF RANGE REFERENCE UNITS LAB T3F Triiodothyronine (T3) Free 3.42 Normal 2.50-3.90 pg/mL Result Comment: PERFORMED BY : [address] [address] PATHOLOGIST SPUN PASTE MACHINE OPERATOR MERYL MALAVE M.D. Performed By: #### T3F #### [place] [id number] [facility] MICROALB CREAT RATIO,U Collected: 07/11/2024 8:48 AM Status: F Source: [facility] TYPE CODE TESTS RESULT OUT OF RANGE REFERENCE UNITS LAB UMAT Microalbumin , Urine <0.7 Normal 0.0-1.8 mg/dL LAB UCREA Creatinine, Urine (Random) 42.00 mg/dL Result Comment: No reference range established LAB MACREATRATIO Microalbumin /Creatinine Ratio Test not performed 0.0-30.0 Result Comment: PERFORMED BY : [place] [address] PATHOLOGIST SPUN PASTE MACHINE OPERATOR MERYL MALAVE M.D. Performed By: #### KALA Burgess #### [place] [id number] [facility] A1C WITH ESTIMATED AVERAGE GLU Collected: 07/11/2024 8:48 AM Status: F Source: F [facility] TYPE CODE TESTS RESULT OUT OF RANGE REFERENCE UNITS LAB .A1C Hemoglobin A1C 5.2 Normal 4.3-5.6 % Result Comment: Increased ri sk for diabetes: 5.7 - 6.4 diabetes: >6.4 glycemic control for adults with diabetes: <7.0 LAB eAG Estimated Average Glucose 103 mg/dL Result Comment: PERFORMED BY : [place] [address] PATHOLOGIST SPUN PASTE MACHINE OPERATOR MERYL MALAVE M.D. Performed By: #### A1C WTH e A #### [place] [id number] [facility] COMPLETE BLOOD COUNT AUTO DIFF Collected: 07/11/2024 8:48 AM Status: F Source: F [facility] TYPE CODE TESTS RESULT OUT OF [...] 0.0-0.2 10*3/uL Result Comment: PERFORMED BY : [place] [address] PATHOLOGIST SPUN PASTE MACHINE OPERATOR MERYL MALAVE M.D. Performed By: #### CBC #### [address] [facility] CREATINE KINASE Collected: 07/11/2024 8:48 AM Status : F Source: [facility] TYPE CODE TESTS RESULT OUT OF RANGE REFERENCE UNITS LAB CK Creatine Kinase 57 Normal 30-223 U/L Result Comment: PERFORMED BY : [place] [address] PATHOLOGIST SPUN PASTE MACHINE OPERATOR MERYL MALAVE M.D. Performed By: #### CK #### [address] [facility] COMPREHENSIVE METABOLIC PANEL Collected: 07/11/2024 8 :48 AM Status: F Source: [facility] TYPE CODE TESTS RESULT OUT OF RANGE [...] 27 Low 34-104 U/L Performed By: #### [id number], FE and TIBC, MG, CMP, LIPID, TSH3, FOL, B12, T4F, CHRISTIE #### [facility] [address] [place] [id number] [facility] MAGNESIUM Collected: 8:48 AM Status: F Source: [facility] TYPE CODE TESTS RESULT OUT OF RANGE REFERENCE UNITS LAB MG Magnesium 2.1 Normal 1.9-2.7 mg/dL Performed By: #### [id number], FE and TIBC, MG, CMP, LIPID, TSH3, FOL, B12, T4F, CHRISTIE #### [facility] [address] [place] [id number] [facility] IRON AND TIBC PROFILE Collected: 07/11/2024 8:48 AM Status: F Source: [facility] TYPE CODE TESTS RESULT OUT OF RANGE REFERENCE UNITS LAB FE Iron 137 Normal 50-212 ug/dL LAB TIBCT Total Iron Binding Capacity 389 Normal 255-450 ug/dL LAB FESAT% % Iron Saturation 35.2 Normal 20-50 % LAB TRANS Transferrin 278 Normal 203-362 mg/dL Performed By: #### [id number], FE and TIBC, MG, CMP, LIPID, TSH3, FOL, B12, T4F, CHRISTIE #### [facility] [address] [place] [id number] [facility] FERRITIN Collected: 8:48 AM Status: F Source: [facility] TYPE CODE TESTS RESULT OUT OF RANGE REFERENCE UNITS LAB CHRISTIE Ferritin 18.0 Normal 11.0-306.8 ng/mL Performed By: #### [id number], FE and TIBC, MG, CMP, LIPID, TSH3, FOL, B12, T4F, CHRISTIE #### [facility] [address] [place] [id number] [facility] LIPID PANEL Collected: 07/11/2024 8:48 AM Status: F Source: [facility] TYPE CODE TESTS RESULT OUT OF RANGE [...] Chol/HDL Ratio 2.5 <5.0 Performed By: #### [id number], FE and TIBC, MG, CMP, LIPID, TSH3, FOL, B12, T4F, CHRISTIE #### [address] VITAMIN B12 Collected: 8:48 AM Status: F Source: [facility] TYPE CODE TESTS RESULT OUT OF RANGE REFERENCE UNITS LAB B12 Vitamin B12 423 Normal 180-914 pg/mL Performed By: #### [id number], FE and TIBC, MG, CMP, LIPID, TSH3, FOL, B12, T4F, CHRISTIE #### [address] FOLATE Collected: 8:48 AM Status: F Source: [facility] TYPE CODE TESTS RESULT OUT OF RANGE REFERENCE UNITS LAB FOL Folate 38.0 >5.9 ng/mL Result Comment: Folate refer ence range: >5.9 ng/ml The WHO technical consultation on folate and vitamin b12 deficiencies has determined that folate concentrations less than 4 ng/ml are considered deficient. Performed By: #### [id number], FE and TIBC, MG, CMP, LIPID, TSH3, FOL, B12, T4F, CHRISTIE #### [address] FREE T4 (FREE THYROXINE) Collected: 03/2024 8:48 AM Status: F Source: [facility] TYPE CODE TESTS RESULT OUT OF RANGE REFERENCE UNITS LAB T4F Free T4 (Free Thyroxine) 0.79 Normal 0.61-1.12 ng/dL Performed By: #### [id number], FE and TIBC, MG, CMP, LIPID, TSH3, FOL, B12, T4F, CHRISTIE #### [address] THYROID STIMULATING HORMONE Collected: 07/11/2024 8:4 8 AM Status: F Source: [facility] TYPE CODE TESTS RESULT OUT OF RANGE REFERENCE UNITS LAB TSH3 Thyroid Stimulating Hormone 0.77 Normal 0.45-5.33 u[iU]/mL Performed By: #### [id number], FE and TIBC, MG, CMP, LIPID, TSH3, FOL, B12, T4F, CHRISTIE #### [facility] [address] [place] [id number] [facility] VITAMIN D 25 HYDROXY TOTAL Collected: 0 07/11/2024 8:48 AM Status: F Source: [facility] TYPE CODE TESTS RESULT OUT OF RANGE REFERENCE UNITS LAB [id number] Vitamin D 25 Hydroxy Total 49.6 Normal 30-100 ng/mL Result Comment: VITAMIN D ST ATUS 25(OH)VITAMIN D RANGE (ng/mL) Deficient <20 Insufficient 20 to <30 Sufficient 30 to 100 Reference: Jeison MF,Demetrio NC, Nika FORD, et al. Evaluation,treatment, and prevention of vitamin D deficiency; an Endocrine Society clinical practice guideline. JCEM. 2010; 96(7):1911-30. PERFORMED BY: [place] [address] PATHOLOGIST SPUN PASTE MACHINE OPERATOR MERYL MALAVE M.D. Performed By: #### [id number], FE and TIBC, MG, CMP, LIPID, TSH3, FOL, B12, T4F, CHRISTIE #### [place] [id number] [facility] ZINC, PLASMA Collected: 8:48 AM Status: F Source: [facility] TYPE CODE TESTS RESULT OUT OF RANGE REFERENCE UNITS LAB ZINC,PL Zinc, Plasma 77 44-115 ug/dL Result Comment: This test wa s developed and its performance characteristics determined by [facility]. It has not been cleared or approved by the Food and Drug Administration. Detection Limit = 5 Performed at: [address] [id number] Supercalender Operator: Maggie Quiroz MD, Phone: [phone] Performed By: #### ZINC,PL, TPO, THYREAB #### [facility] , THYROID PEROXIDASE ANTIBODIES Collected: 07/11/2024 8 :48 AM Status: F Source: [facility] TYPE CODE TESTS RESULT OUT OF RANGE REFERENCE UNITS LAB TPO Thyroid Peroxidase Antibodies 11 0-34 [IU]/mL Result Comment: Performed at : - [facility] [id number] Supercalender Operator: Osvaldo Jin PhD, Phone: [phone] Performed By: #### ZINC,PL, TPO, THYREAB #### [facility] , THYROTROPIN RECEPTOR ANTIBODY Collected: 07/11/2024 8 :48 AM Status: F Source: [facility] TYPE CODE TESTS RESULT OUT OF RANGE REFERENCE UNITS LAB THYREAB Thyrotropin Receptor Antibody <1.10 0.00-1.75 Result Comment: Performed at : - [facility] [id number] Supercalender Operator: Maggie Quiroz MD, Phone: [phone] PERFORMED BY: [place] [address] PATHOLOGIST SPUN PASTE MACHINE OPERATOR MERYL MALAVE M.D. Performed By: #### ZINC,PL, TPO, THYREAB #### [facility] , ECG 12 LEAD ECG Observed: 07/11/2024 8:34 AM Status: COMPLETED Source: [facility] [place] [address] Electrocardiograph Report Signed Patient: Urmila Rodriguez MR#: [id number] 97 : 1980 Acct:[id number] Age/Sex: 43 / F ADM Date: 07/11/24 Loc: Room: Type: [facility] Attending Dr: Rolanda Ortiz STEAM DISTRIBUTION SUPERVISOR-C Ordering Provider: Rolanda Ortiz Date of Service: [...] Confirmed by Julio C De Los Santos ([id number]) on 07/11/2024 8:57:34 AM Referred By: Electronically Signed By: Julio C De Los Santos Transcribed By: MUS Signed By Julio C De Los Santos MD 07/11/24 0857 PROGRESS Observed: 06/27/2024 12:07 PM Status: COMPLETED Source: [facility] HNO ID: [id number] Author: ?, ?, ? Service: ? Author Type: ? Type: Progress Notes Filed: 06/27/2024 12:08 Note Text: Called patient left a voicemail this is our second time trying to reach the patient. CNPN Observed: 06/23/2024 12:00 AM Status: COMPLETED Source: [facility] Telephone (AMDERM) URMILA RODRIGUEZ ([id number]) 1980 F Date Time Provider Department 06/23/24 HARMONY DUTTA During your visit today, we [...] Observed: 06/13/2024 1:10 PM Status: COMPLETED Source: [facility] HNO ID: [id number] Author: ?, ?, ? Service: ? Author Type: ? Type: Progress Notes Filed: 06/13/2024 13:11 Note Text: Summary: 1st attempt LVM w/callback number for pt to schedule 6 month in office visit w/ per provider request [facility] 06/13/24 PROGRESS Observed: 06/08/2024 7:11 AM Status: COMPLETED Source: [facility] HNO ID: [id number] Author: HARMONY DUTTA MD Service: ? Author Type: Physician Type: Progress Notes Filed: 06/08/2024 12:03 Note Text: This visit was conducted as a virtual visit. I have communicated my name and active licensure. The patient's identity and physical location were verified at the time of this visit. Either the patient or their legal new accounts banking representative has been informed of the risks [...] Observed: 05/16/2024 12:00 AM Status: COMPLETED Source: [facility] Telephone ([place]) URMILA RODRIGUEZ ([id number]) 1980 F Date Time Provider Department 05/16/24 [...] to discuss changing medication. Please advise at [phone] Radha Wong LPN 06/01/2024 4:45 PM Signed [...] Observed: 03/29/2024 6:40 AM Status: COMPLETED Source: [facility] Office Visit (AMDERM) URMILA RODRIGUEZ ([id number]) 1980 F Date Time Provider Department 03/29/24 [...] Past Histories independently gathered by the clinical application support analyst and the remaining scribed note accurately describes [...] Observed: 03/29/2024 6:31 AM Status: COMPLETED Source: [facility] HNO ID: [id number] Author: HARMONY DUTTA MD Service: ? Author [...] Past Histories independently gathered by the clinical application support analyst and the remaining scribed note accurately describes my personal service to and examination of the patient. Harmony Dutta MD COMPREHENSIVE METABOLIC PANEL Collected: 02/01/2024 1 0:57 AM Status: F Source: [facility] TYPE CODE TESTS RESULT OUT OF RANGE [...] CMP, CHRISTIE, FE and TIBC, B12 #### [facility] [address] IRON AND TIBC PROFILE Collected: 02/01/2024 10:57 AM Status: F Source: [facility] TYPE CODE TESTS RESULT OUT OF RANGE REFERENCE UNITS LAB FE Iron 106 Normal 50-212 ug/dL LAB TIBCT Total Iron Binding Capacity 339 Normal 255-450 ug/dL LAB FESAT% % Iron Saturation 31.3 Normal 20-50 % LAB TRANS Transferrin 242 Normal 203-362 mg/dL Performed By: #### PRL, VITD 25OH, CMP, CHRISTIE, FE and TIBC, B12 #### [address] FERRITIN Collected: 10:57 AM Status: F Source: [facility] TYPE CODE TESTS RESULT OUT OF RANGE REFERENCE UNITS LAB CHRISTIE Ferritin 10.0 Low 11.0-306.8 ng/mL Performed By: #### PRL, VITD 25OH, CMP, CHRISTIE, FE and TIBC, B12 #### [address] VITAMIN B12 Collected: 10:57 AM Status: F Source: [facility] TYPE CODE TESTS RESULT OUT OF RANGE REFERENCE UNITS LAB B12 Vitamin B12 584 Normal 180-914 pg/mL Performed By: #### PRL, VITD 25OH, CMP, CHRISTIE, FE and TIBC, B12 #### [facility] [address] [place] [address] PROLACTIN Collected: 10:57 AM Status: F Source: [facility] TYPE CODE TESTS RESULT OUT OF RANGE REFERENCE UNITS LAB PRL Prolactin 8.17 Normal 3.34-26.72 ng/mL Performed By: #### PRL, VITD 25OH, CMP, CHRISTIE, FE and TIBC, B12 #### [address] VITAMIN D 25 HYDROXY TOTAL Collected: 1 04/03/2023 10:57 AM Status: F Source: [facility] TYPE CODE TESTS RESULT OUT OF RANGE REFERENCE UNITS LAB [id number] Vitamin D 25 Hydroxy Total 48.1 Normal 30-100 ng/mL Result Comment: VITAMIN D ST ATUS 25(OH)VITAMIN D RANGE (ng/mL) Deficient <20 Insufficient 20 to <30 Sufficient 30 to 100 Reference: Jeison MF,Demetrio NC, Nika FORD, et al. Evaluation,treatment, and prevention of vitamin D deficiency; an Endocrine Society clinical practice guideline. JCEM. 2010; 96(7):1911-30. PERFORMED BY: [place] [address] PATHOLOGIST SPUN PASTE MACHINE OPERATOR BELLA ADAMS M.D. Performed By: #### PRL, VITD 25OH, CMP, CHRISTIE, FE and TIBC, B12 #### [facility] [address] [place] [address] TESTOSTERONE FREE AND TOTAL Collected: 02/01/2024 10:57 AM Status: F Source: [facility] TYPE CODE TESTS RESULT OUT OF RANGE REFERENCE UNITS LAB TEST(F T) Testosterone , 88 High 4-50 ng/dL LAB TESTF Testosterone ,Free 1.2 0.0-4.2 pg/mL Result Comment: Performed at : [facility] [address] [id number] Supercalender Operator: Osvaldo Jin PhD, Phone: [phone] Performed at: [address] [id number] Supercalender Operator: Maggie Quiroz MD, Phone: [phone] Performed By: #### DHEA, PRO G, TEST F + T, LH, EST #### [facility] , ESTROGENS, TOTAL Collected: 10:57 AM Status: F Source: [facility] TYPE CODE TESTS RESULT OUT OF RANGE REFERENCE UNITS LAB EST Estrogens, Total 745 . pg/mL Result Comment: Prepubertal < 40 Female Cycle: 1-10 Days 16 - 328 11-20 Days 34 - 501 21-30 Days 48 - 350 Post-Menopausal 40 - 244 Performed at: [address] [id number] Supercalender Operator: Maggie Quiroz MD, Phone: [phone] Performed By: #### DHEA, PRO G, TEST F + T, LH, EST #### [facility] , LUTEINIZING HORMONE Collected: 02/01/20 10:57 AM Status: F Source: [facility] TYPE CODE TESTS RESULT OUT OF RANGE REFERENCE UNITS LAB LH Luteinizing Hormone 26.7 . m[iU]/mL Result Comment: Adult Female Range Follicular phase 2.4 - 12.6 Ovulation phase 14.0 - 95.6 Luteal phase 1.0 - 11.4 Postmenopausal 7.7 - 58.5 Performed By: #### DHEA, PRO G, TEST F + T, LH, EST #### [facility] , PROGESTERONE Collected: 10:57 AM Status: F Source: [facility] TYPE CODE TESTS RESULT OUT OF RANGE REFERENCE UNITS LAB PROG Progesterone 0.5 . ng/mL Result Comment: Follicular p hase 0.1 - 0.9 Luteal phase 1.8 - 23.9 Ovulation phase 0.1 - 12.0 First trimester 11.0 - 44.3 Second trimester 25.4 - 83.3 Third trimester 58.7 - 214.0 Postmenopausal 0.0 - 0.1 Performed at: [address] [id number] Supercalender Operator: Osvaldo Jin PhD, Phone: [phone] Performed By: #### DHEA, PRO G, TEST F + T, LH, EST #### [facility] , DEHYDROEPANDROSTERONE Collected: 2023 10:57 AM Status: F Source: [facility] TYPE CODE TESTS RESULT OUT OF RANGE REFERENCE UNITS LAB DHEA DHEA 248 31-701 ng/dL Result Comment: This test wa s developed and its performance characteristics determined by [facility]. It has not been cleared or approved by the Food and Drug Administration. Performed at: [address] [id number] Supercalender Operator: Maggie Quiroz MD, Phone: [phone] PERFORMED BY: [place] [address] [place] [address] PATHOLOGIST SPUN PASTE MACHINE OPERATOR BELLA ADAMS M.D. Performed By: #### DHEA, PRO G, TEST F + T, LH, EST #### [facility] , COMPLETE BLOOD COUNT AUTO DIFF Collected: 02/01/2024 10:57 AM Status: F Source: [facility] TYPE CODE TESTS RESULT OUT OF RANGE [...] 0.0-0.2 10*3/uL Result Comment: PERFORMED BY : [place] [address] PATHOLOGIST SPUN PASTE MACHINE OPERATOR BELLA ADAMS M.D. Performed By: #### CBC #### [place] [id number] [facility] PROGRESS Observed: 11/25/2023 11:59 AM Status: COMPLETED Source: [facility] HNO ID: [id number] Author: SUHAIL LEE MD, PhD Service: ? Author Type: Physician Type: Progress Notes Filed: 12/01/2023 13:34 Note Text: 11:59 AM VIRTUAL VISIT FOLLOW UP I have communicated my name and active licensure. The patient's identity and physical location were verified at the time of this visit. Either the patient or their legal new accounts banking representative has been informed of the risks [...] which included preparing to see the patient, [id number] patient care, completing clinical documentation, obtaining and/or reviewing separately obtained history, and ordering medications, tests, or procedures. ALLERGIES DATE TYPE / CODE NAME / CODE REACTION SEVERITY SOURCE 08/26/2024 Drug Allergy/7212588 02(SNOMED CT) No Known Allergies/[id number]( RXNORM) Unknown [facility] /[id number](SN OMED CT) No Known Medication Allergies [facility] Drug Class/[id number] (SNOMED CT) NO KNOWN ALLERGIES [facility] ENCOUNTERS ADMIT/DISCHARGE ACCOUNT NUMBER ADMITTING ENCOUNTER CLASS LOCATION SOURCE 10/11/2024/10/12/19 [id number] Ambulatory Building:[facility] 09/27/2024/09/28/19 [id number] Ambulatory [facility] g:FM [facility] 09/22/2024/09/23/19 [id number] [facility][id number] 09/22/2024/09/23/19 [id number] [facility]LARA [facility] 08/31/2024/09/01/19 [id number] Ambulatory FTBuilding :FT ONCRoom: CD:[id number] [facility] 08/26/2024/08/27/19 [id number] [facility]/2024 [id number] ACOSTA VARELA Ambulatory FTMCBuilding :FT LAB [facility] 08/22/2024/08/23/19 [id number] ACOSTA VARELA Ambulatory FTMCBuilding :FT LAB [facility] 08/18/2024/08/19/19 [id number] ACOSTA VARELA Ambulatory FTMCBuilding :FT [facility] 08/10/2024/08/11/19 [id number] [facility]ulatory [place] 08/04/2024 [id number] Ambulatory [facility] [place] 08/04/2024/08/05/19 [id number] [facility] 07/25/2024/07/26/19 [id number] Ambulatory Building:NOM S HSM [facility] 07/11/2024/07/12/19 25 [id number] Rolanda [facility]iz [facility] 06/28/2024/06/29/19 25 [id number] Ambulatory Building:NOM S SH AUD [facility] 06/15/2024/06/16/19 25 [id number] Ambulatory Building:NOM S HSM FM [facility] 06/08/2024/06/09/19 25 [id number] Ambulatory [facility] HospitalBuil ding:MERE [facility] 03/31/2024/03/31/19 25 [id number] Ambulatory Building:NOM S HSM FM [facility] 03/29/2024/03/29/19 25 [id number] Ambulatory [facility] HospitalBuil ding:MERE [facility] 02/24/2024/02/23/19 25 [id number] Ambulatory Building:NOM S SH ENDO [facility] 02/01/2024/02/01/20 24 [id number] Kilo Frankel [facility] 01/13/2024/12/04 [id number] Ambulatory Building:NOM S [facility] 11/25/2023/11/25/19 [id number] [facility][id number] [facility] PAYERS ENCOUNTER GUARANTOR PAYER SUBSCRIBER SOURCE 10/11/2024 URMILA ZAMORAMAIKB: [id number] [place] [address]Enz: (HP) Primary Insurance:MEDICAL MUTUALPolicy Number: [id number] Date:2023-11-10 URMILA NOAHMAIKB: [id number] [place] [address] [facility] 09/27/2024 URMILA Chanel HEIKEB: [id number] JULIUS RDTel: [phone]~~(262 (HP) Primary Insurance:MEDICAL MUTUALPolicy Number: [id number] Date:3259-79-66[address] [address]YGZQ[place], [place] [address]ZQ: URMILA L DACIA [facility] 09/22/2024 Primary Insuranc e:MMO SUPERMED PPOPolicy Number: [id number] Date:7450-15-55Vonc Name:Dirk ZAMORAMAIKB: [id number] [place] [address] [facility] 09/22/2024 Primary Insuranc e:MMO SUPERMED PPOPolicy Number: [id number] Date:3677-50-00Mnur Name:Dirk ZAMORAMAIKB: [id number] [place] [id number] [facility] 08/31/2024 URMILA Chanel HEIKEB: [id number] JULIUS RDTel: [phone]~~[phone] (HP) Primary Insurance:MEDICAL MUTUALPolicy Number: [id number] Date:5578-79-31[address] [address]NBMPMWUQH, [place] [address]FV: URMILA PEDERSON [facility] 08/26/2024 Urmila Zamorai[address] [place] [address]Eco: (HP) Primary Insurance:MMOPolicy Number: [id number] Date:6239-55-67[id number] [place] [address]CX: Urmila ZamoraiDOB: [id number] [place] [address]Hka: (HP) [facility] 08/26/2024 Secondary Insurance:Self PayPolicy Number: Effective Date:2024-08-26 NOT GIVENUNK [facility] 08/22/2024 URMILA ZAMORAIDOB: [id number] JULIUS RDTel: [phone]~~[phone] 6 (HP) Primary Insurance:MEDICAL MUTUALPolicy Number: [id number] Date:9843-52-80[address], [place] [address]UD: URMILA PEDERSON [facility] 08/18/2024 URMILA ZAMORAIDOB: [id number] JULIUS RDTel: [phone]~~(802) 6 (HP) Primary Insurance:MEDICAL MUTUALPolicy Number: [id number] Date:4687-95-14[address] [address], [place] [address]MK: URMILA PEDERSON [facility] 08/10/2024 URMILA ZAMORAIDOB: [id number] JULIUS RDTel: [phone]~~(802) 6 (HP) Primary Insurance:MEDICAL MUTUALPolicy Number: [id number] Date:5904-03-15RM [address] [address], [place] [address]SG: URMILA PEDERSON [facility] 08/04/2024 Urmila Chanel [address] [place] [address]Bnn: (HP) Primary Insurance:MMOPolicy Number: [id number] Date:4035-22-02LG [id number] [place] [address]NW: Tim HeikeB: [id number] [facility] ([place], [place]) [place] [address]Tgr: (HP) [facility] 08/04/2024 Secondary Insurance:Self PayPolicy Number: Effective Date:2024-06-14 [facility] URMILA ZAMORAMAIKB: [id number] [place] [address]Ota: (HP) Primary Insurance:MEDICAL MUTUALPolicy Number: [id number] Date:2023-11-10 URMILA ZAMORAMAIKB: [id number] [place] [address] [facility] 07/11/2024 Urmila [address] [place] [address]Ite: (HP) Primary Insurance:MMOPolicy Number: [id number] Date:6419-91-94EJ [id number] [place] [address]BW: Urmila ZamoraMaikB: [id number] [place] [address]Eih: (HP) [facility] 07/11/2024 Secondary Insurance:Self PayPolicy Number: Effective Date:2024-06-27 [facility]24 URMILA ZAMORAMAIKB: [id number] [place] [address]Mzl: (HP) Primary Insurance:MEDICAL MUTUALPolicy Number: [id number] Date:2023-11-10 URMILA ZAMORAIDOB: [id number] [place] [address] [facility] 06/15/2024 URMILA ZAMORAIDOB: [id number] [place] [address]Bhj: (HP) Primary Insurance:MEDICAL MUTUALPolicy Number: [id number] Date:2023-11-10 URMILA ZAMORAIDOB: [id number] [place] [address] [facility] 06/08/2024 Primary Insuranc e:MMO SUPERMED PPOPolicy Number: [id number] Date:3094-46-22Sbus Name:Dirk URMILA BURROUGHSB: [id number] [place] [address] [facility] 03/31/2024 URMILA ZAMORAIDOB: [id number] [place] [address]Xqp: (HP) Primary Insurance:MEDICAL MUTUALPolicy Number: [id number] Date:2023-11-10 URMILA BURROUGHSB: [id number] [place] [address] [facility] 03/29/2024 Primary Insurance:AETNA POSPolicy Number: [id number] Date:7180-13-69Zhog Name:Eliane BURROUGHSB: [id number] [place] [address] [facility] 02/24/2024 URMILA ZAMORAIDOB: [id number] [place] [address]Eap: (HP) Primary Insurance:MEDICAL MUTUALPolicy Number: [id number] Date:2023-11-10 URMILA ZAMORAIDOB: [id number] [place] [address] [facility] 02/01/2024 Urmila [address] [place] [address]Avx: (HP) Primary Insurance:Aetna Insurance CompanyPolicy Number: [id number] Date:2024-02-01 Tim BurroughsB: [id number] [place] [address]Txr: (HP) [facility] 02/01/2024 Secondary Insurance:Self PayPolicy Number: Effective Date:2024-02-01 [facility]24 URMILA CLEMENS: [id number] [place] [address]Gbp: (HP) Primary Insurance:AETNAPolicy Number: [id number] Date:8705-23-78Frgc Name:DARRIN MCARTHUR [place], [place] [address]AH: TIM BURROUGHSB: [id number] [place] [address] [facility] 11/25/2023 Primary Insurance:AETNA POSPolicy Number: [id number] Date:6411-80-07Uodn Name:Eliane CLEMENS: [id number] [place] [address] [facility]
[2024-11-07 19:38] LABS: Hematocrit 37.2 % (37-47); Hemoglobin 12.6 g/dL (12.0-15.0); Immature Granulocytes Count 0.010 X10^3/uL (0.0-0.0); Mean Corp Hgb Conc 33.9 g/dL (32-36); Mean Corpuscular Volume 87.5 fL (81-99); Mean Platelet Vol. 10.8 fl (6.2-12.0); NRBC Flagged by Analyzer 0 % (0-5); Platelet Count 183 K/mm3 (150-450); RBC Distribution Width CV 12.3 % (11.6-14.6); RBC Distribution Width SD 39.6 fl (35.1-43.9); Red Blood Count 4.25 M/mm3 (4.2-5.4); White Blood Count 4.5 K/mm3 (4.4-11.0)
[2024-11-07 20:10] LABS: AST(SGOT) 17 U/L (<=31); Alanine Aminotransfer ALT/SGPT 12 U/L (<=34); Albumin, Serum 4.2 g/dL (3.5-5.0); Alkaline Phosphatase 35 U/L (35-104); Anion Gap 12 (5-15); BUN 12 mg/dL (4-19); BUN/Creat Ratio 16.6 RATIO (10-20); CORTISOL AM 16.30 ug/dL (6.02-18.40); Calcium,Total 9.5 mg/dL (7.6-11.0); Carbon Dioxide 24.0 mmol/L (21.0-32.0); Chloride 103 mmol/L (98-108); Cholesterol 237 mg/dL (<=200); Ferritin 20 ng/mL (22-378); Globulin 3.0 g/dL (2.2-4.2); Glucose 80 mg/dL (70-99); Low Density Lipoprotein Calc. 108 mg/dL; Potassium 3.8 mmol/L (3.3-5.1); Triglycerides 102 mg/dL; Very Low Density Lipoprotein 20 mg/dL (5-40); cholesterol:hdl ratio screen 2.17
[2024-11-07 20:47] LABS: Iron 70 ug/dL (50-170); Iron Binding Capacity,Unsat 326 ug/dL (228-428); Uric Acid 3.0 mg/dL (2.6-6.0)
[2024-11-09 04:07] LABS: PROGESTERONE 0.4 ng/mL (.)
[2024-11-11 05:07] LABS: Red Blood Cell Count Test/G6PD 4.30 x10E6/uL (3.77-5.28)
== END | disposition home or self-care (01) ==
PROVIDERS: Referring Provider Nurse Practitioner Family; Visit Provider Nurse Practitioner Family
DX: A44.0 Systemic bartonellosis (principal); R53.82 Chronic fatigue, unspecified; U09.9 Post COVID-19 condition, unspecified; L65.9 Nonscarring hair loss, unspecified; R51.9 Headache, unspecified; H93.19 Tinnitus, unspecified ear; R00.2 Palpitations; R06.00 Dyspnea, unspecified; E28.9 Ovarian dysfunction, unspecified; N92.6 Irregular menstruation, unspecified; N94.6 Dysmenorrhea, unspecified; K59.00 Constipation, unspecified; R11.0 Nausea; R12 Heartburn; G89.29 Other chronic pain
CPT/HCPCS: 80053; 80061; 82533; 82627; 82670; 82728; 82955; 83525; 83540; 83550; 84144; 84402; 84403; 84550; 85025; 82626

== ENCOUNTER → 2025-01-09 | Outpatient (CLI) | payer OTHER, SELFPAY ==
[2025-01-13 05:07] LABS: Immunoglobulin A 165 mg/dL (87-352); Immunoglobulin G 1172 mg/dL (586-1602); Immunoglobulin G, Subclass 1 583 mg/dL (248-810); Immunoglobulin G, Subclass 2 282 mg/dL (130-555); Immunoglobulin G, Subclass 3 40 mg/dL (15-102); Immunoglobulin G, Subclass 4 84 mg/dL (2-96); Immunoglobulin M 135 mg/dL (26-217)
== END | disposition home or self-care (01) ==
PROVIDERS: Referring Provider Nurse Practitioner Family; Visit Provider Nurse Practitioner Family
DX: A44.0 Systemic bartonellosis (principal); R53.82 Chronic fatigue, unspecified; U09.9 Post COVID-19 condition, unspecified; L65.9 Nonscarring hair loss, unspecified; R51.9 Headache, unspecified; H93.19 Tinnitus, unspecified ear; R00.2 Palpitations; R06.00 Dyspnea, unspecified; E28.9 Ovarian dysfunction, unspecified; N92.6 Irregular menstruation, unspecified; N94.6 Dysmenorrhea, unspecified; K59.00 Constipation, unspecified; R11.0 Nausea; R12 Heartburn
CPT/HCPCS: 82784; 82785; 82787